=== PATIENT | male | born 1935 | race Caucasian/White ===

== ENCOUNTER 2017-09-11 17:42 | Emergency (ER) | payer MEDICARE, OTHER ==
[2017-09-11] MEDS ORDERED: Meclizine HCl 25 MG TAB ONE (18:18)
[2017-09-11] MEDS ORDERED: Ondansetron ODT 4 MG TAB ONE (18:18)
--- NOTE | 2017-09-11 18:25 | CT ---
CT BRAIN: 09/11/2017 PROVIDED CLINICAL HISTORY: Dizziness. COMPARISON: 11/17/2010 FINDINGS: The ventricular system is unchanged in size and morphology. There is no evidence for intracranial he morrhage or mass effect. Conspicuous vascular calcifications are seen. Dolichoectasia of the basila r artery is noted. The extracranial soft tissues and osseous structures demonstrate an unremarkable CT appearance. IMPRESSION: No evidence for intracranial hemorrhage or mass effect. POS: [facility]
[2017-09-11 18:47] LABS: #Basophils 0.1 thou/uL (0.0-0.2); #Eosinphils 0.2 thou/uL (0.0-0.7); #Lymphocytes 1.6 thou/uL (1.20-3.40); #Monocytes 0.4 thou/uL (0.11-0.59); #Neutrophils 2.9 thou/uL (1.40-6.50); %Basophils 1.1 % (0.0-1.0); %Eosinophils 4.6 % (0.0-10.0); %Lymphocytes 30.6 % (21.0-51.0); %Monocytes 7.2 % (0.0-10.0); %Neutrophils 56.5 % (42.0-75.0); Large Platelets SLIGHT; MDiff Complete? YES; Mean Corpuscular HGB CONC 33.7 g/dL (32.0-36.0); Mean Corpuscular Hemoglobin 34.7 pg (27.0-31.0); Mean Platelet Volume 9.9 fL (7.4-10.4); PLT Morphology Comment Appears Adequate; Platelet Count 124 thou/uL (130-400); RBC Distribution Width 12.6 % (11.5-14.5); Red Blood Cell (RBC) Count 4.02 mill/uL (4.70-6.10); White Blood Cell (WBC) Count 5.1 thou/uL (4.8-10.8)
[2017-09-11 18:52] LABS: ALT (SGPT) 17 U/L (8-55); AST (SGOT) 18 U/L (5-34); Albumin 4.1 g/dL (3.4-4.8); Alkaline Phosphatase 98 U/L (40-150); Anion Gap 14 mmol/L (10-20); BUN (Urea Nitrogen) 27 mg/dL (8.4-25.7); Bilirubin, Total 0.5 mg/dL (0.2-1.2); Calc. Creatinine Clearance 0 mL/min (70-130); Calcium 9.5 mg/dL (7.8-10.44); Carbon Dioxide 29 mmol/L (23-31); Chloride 103 mmol/L (98-107); Estimated GFR-MDRD 36; Globulin 2.3 g/dL (2.4-3.5); Glucose 152 mg/dL (83-110); Potassium 3.6 mmol/L (3.5-5.1); Protein, Total 6.4 g/dL (5.8-8.1); Sodium 142 mmol/L (136-145)
[2017-09-11 18:53] LABS: CKMB 1.7 ng/mL (0-6.6); Troponin I Less than 0.010 ng/mL (< 0.028)
--- NOTE | 2017-09-11 19:21 | RAD ---
PORTABLE CHEST: 09/11/2017 PROVIDED CLINICAL HISTORY: Dizziness. COMPARISON: 11/28/2010 FINDINGS: Elevation of the left hemidiaphragm is again noted. The visualized portions of the cardiac and media stinal silhouette are unchanged in appearance. No definite focal consolidation or pneumothorax appar ent. IMPRESSION: Stable radiographic appearance of the chest. POS: [facility]
== END 2017-09-11 19:28 | disposition home or self-care (01) ==
LOC: SCSER 17:42
DX: R42 Dizziness and giddiness (principal); M10.9 Gout, unspecified; E78.5 Hyperlipidemia, unspecified; I10 Essential (primary) hypertension; Z79.82 Long term (current) use of aspirin; Z79.899 Other long term (current) drug therapy
CPT/HCPCS: 70450; 71045; 80053; 82553; 84484; 85025; 93005; Q0162

== ENCOUNTER 2017-09-27 16:10 | Emergency (ER) | payer MEDICARE, OTHER ==
[2017-09-27 17:03] LABS: ALT (SGPT) 16 U/L (8-55); AST (SGOT) 19 U/L (5-34); Albumin 4.4 g/dL (3.4-4.8); Alkaline Phosphatase 101 U/L (40-150); Anion Gap 17 mmol/L (10-20); BUN (Urea Nitrogen) 32 mg/dL (8.4-25.7); Bilirubin, Total 0.6 mg/dL (0.2-1.2); Calc. Creatinine Clearance 0 mL/min (70-130); Calcium 10.1 mg/dL (7.8-10.44); Carbon Dioxide 26 mmol/L (23-31); Chloride 105 mmol/L (98-107); Estimated GFR-MDRD 49; Globulin 2.6 g/dL (2.4-3.5); Glucose 100 mg/dL (83-110); Lipase 31 U/L (8-78); Potassium 3.9 mmol/L (3.5-5.1); Sodium 144 mmol/L (136-145)
[2017-09-27 17:04] LABS: #Basophils 0.1 thou/uL (0.0-0.2); #Eosinphils 0.1 thou/uL (0.0-0.7); #Lymphocytes 1.2 thou/uL (1.20-3.40); #Monocytes 0.4 thou/uL (0.11-0.59); #Neutrophils 5.5 thou/uL (1.40-6.50); %Basophils 0.9 % (0.0-1.0); %Eosinophils 1.4 % (0.0-10.0); %Monocytes 5.5 % (0.0-10.0); %Neutrophils 76.2 % (42.0-75.0); Hemoglobin 14.7 g/dL (14.0-18.0); MDiff Complete? YES; Macrocytosis SLIGHT = 6-15 cells (100X) (0-5/hpf); Mean Corpuscular Hemoglobin 35.6 pg (27.0-31.0); Mean Platelet Volume 9.2 fL (7.4-10.4); PLT Morphology Comment Appears Decreased; Platelet Count 135 thou/uL (130-400); RBC Distribution Width 12.5 % (11.5-14.5); Red Blood Cell (RBC) Count 4.12 mill/uL (4.70-6.10); White Blood Cell (WBC) Count 7.3 thou/uL (4.8-10.8)
[2017-09-27 17:05] LABS: Bilirubin Negative (Negative); Blood, Urine Negative (Negative); Clarity Clear (Clear); Glucose, Urine (Dipstick) Negative (Negative); Leukocyte Negative (Negative); Nitrite Negative (Negative); Protein, Urine (Dipstick) Negative (Neg-Trace); Specific Gravity, Urine 1.015 (1.005-1.030); Urobilinogen 0.2 mg/dL (0.2-1.0)
--- NOTE | 2017-09-27 17:19 | CT ---
CT ABDOMEN AND PELVIS WITHOUT CONTRAST 09/27/17 HISTORY: Abdominal pain, constipation. COMPARISON: None. FINDINGS: Elevation of the left hemidiaphragm with left basilar passive atelectasis. Dense [place] coronary yosvany ry calcifications. Numerous hypodensities of both kidneys. Evaluation of the mid abdomen is limited due to extensive mot ion artifact. Fusion hardware also limits evaluation of the abdomen and pelvis. There are no dilated air filled loops of large or small bowel. Prostate is enlarged. Indwelling Wooten catheter. Minimal diverticular disease. No evidence of acute diverticulitis. The appendix is visualized and is normal. Mild asymmetric right sided perinephric stranding. There ar e calcifications within both renal collecting system measuring up to 3 mm right superior pole and int erpolar left kidney. No hydroureteronephrosis is appreciated. The aorta is markedly tortuous without aneurysmal dilatation . 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 IMPRESSION: 1. Bilateral renal calculi with mild right sided perinephric stranding can be seen with recently passed stone. Motion artifact throughout the abdomen limits further evaluation. 2. 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 This also may be the source of patient's pain. 3. No evidence of bowel obstruction. 4. Normal appendix. 5. Possibly a chronically elevated left hemidiaphragm with passive atelectasis in the left lower lobe suggesting prior phrenic nerve injury. POS: [facility]
== END 2017-09-27 17:52 | disposition home or self-care (01) ==
LOC: SCSER 16:10
DX: K59.00 Constipation, unspecified (principal); R33.9 Retention of urine, unspecified; I25.10 Atherosclerotic heart disease of native coronary artery without angina pectoris; E78.5 Hyperlipidemia, unspecified; M10.9 Gout, unspecified; G62.9 Polyneuropathy, unspecified; Z79.899 Other long term (current) drug therapy
CPT/HCPCS: 36415; 51702; 74176; 80053; 81003; 83690; 85025

== ENCOUNTER 2017-09-30 19:25 | Emergency (ER) | payer MEDICARE, OTHER ==
[2017-09-30] MEDS ORDERED: Ketorolac Tromethamine 30 MG/ML VIAL ONE (21:12)
[2017-09-30] MEDS ORDERED: Phenazopyridine HCl 97.5 MG TABLET ONE (21:12)
--- NOTE | 2017-09-30 22:15 | ULT ---
BLADDER ULTRASOUND: 09/30/17 INDICATIONS: Bleeding from Wooten catheter. Wooten catheter placed today in urologist's office. Wooten catheter is seen with balloon in the bladder lumen. There is echogenicity surrounding this cath eter which may represent blood clot given history of bleeding. Urinary bladder is mildly distended an d is otherwise unremarkable. IMPRESSION: Echogenicity surrounding the Wooten catheter balloon may represent blood clot within bladder. POS: [facility]
== END 2017-09-30 23:12 | disposition short-term general hospital (02) ==
LOC: SCSER 19:25
DX: R33.9 Retention of urine, unspecified (principal); R31.9 Hematuria, unspecified; M10.9 Gout, unspecified; E78.5 Hyperlipidemia, unspecified; I10 Essential (primary) hypertension
CPT/HCPCS: 51700; 76856; 96372; J1885

== ENCOUNTER 2018-08-15 14:58 | Inpatient (IN) | payer MEDICARE, OTHER ==
[~2018-08-15 14:58] MED LIST: ISOVUE-370 76%-LOCM 1 ML ONE
[2018-08-15 15:44] LABS: ALT (SGPT) 11 U/L (8-55); AST (SGOT) 17 U/L (5-34); Albumin 4.1 g/dL (3.4-4.8); Alkaline Phosphatase 122 U/L (40-150); Anion Gap 16 mmol/L (10-20); BUN (Urea Nitrogen) 23 mg/dL (8.4-25.7); Bilirubin, Total 0.6 mg/dL (0.2-1.2); Calc. Creatinine Clearance 0 mL/min (70-130); Carbon Dioxide 28 mmol/L (23-31); Chloride 99 mmol/L (98-107); Estimated GFR-MDRD 48; Globulin 2.4 g/dL (2.4-3.5); Glucose 104 mg/dL (83-110); Potassium 3.8 mmol/L (3.5-5.1); Protein, Total 6.5 g/dL (5.8-8.1); Sodium 139 mmol/L (136-145)
[2018-08-15 15:47] LABS: #Eosinphils 0.1 thou/uL (0.0-0.7); #Lymphocytes 0.5 thou/uL (1.20-3.40); #Monocytes 0.3 thou/uL (0.11-0.59); #Neutrophils 3.7 thou/uL (1.40-6.50); %Eosinophils 1.4 % (0.0-10.0); %Lymphocytes 11.1 % (21.0-51.0); %Monocytes 5.9 % (0.0-10.0); %Neutrophils 81.5 % (42.0-75.0); Hemoglobin 12.7 g/dL (14.0-18.0); MDiff Complete? YES; Macrocytosis SLIGHT = 6-15 cells (100X) (0-5/hpf); Mean Corpuscular HGB CONC 32.4 g/dL (32.0-36.0); Mean Corpuscular Hemoglobin 35.5 pg (27.0-31.0); Mean Platelet Volume 8.2 fL (7.4-10.4); Platelet Count 112 thou/uL (130-400); Platelet Morphology Comment Appears Decreased; RBC Distribution Width 12.2 % (11.5-14.5); Red Blood Cell (RBC) Count 3.57 mill/uL (4.70-6.10); White Blood Cell (WBC) Count 4.6 thou/uL (4.8-10.8)
[2018-08-15 15:50] LABS: Bilirubin Negative (Negative); Blood, Urine Small (Negative); Clarity CLEAR (Clear); Glucose, Urine (Dipstick) Negative (Negative); Leukocyte Negative (Negative); Nitrite Negative (Negative); Protein, Urine (Dipstick) 30 mg/dL (Neg-Trace); Specific Gravity, Urine 1.011 (1.002-1.036); Urobilinogen 0.2 mg/dL (0.2-1.0); pH, Urine 7.5 (5.0-9.0)
[2018-08-15 15:52] LABS: Bacteria/HPF None Seen HPF (None Seen); Hyaline Casts/LPF 0-3 HYALINE CAST LPF (0-3 Hyaline); Pathc Cast-AUWi Flag 0.13 (0-2.49); RBC/HPF 0-3 HPF (0-3); Squamous Epithelial None Seen HPF (0-3); WBC/HPF 0-3 HPF (0-3)
--- NOTE | 2018-08-15 15:52 | RAD ---
PORTABLE CHEST: Date: 08/15/18 HISTORY: Shortness of breath. Chest pain. COMPARISON: 09/11/17. FINDINGS: Elevated left hemidiaphragm is again noted. Left basilar atelectasis associated with this elevation i s again noted. Cardiomegaly. Postop sternotomy change. Lungs otherwise clear and unchanged. IMPRESSION: No evidence of acute process. POS: [facility]
[2018-08-15 19:11] LABS: Lactic Acid 0.9 mmol/L (0.5-2.2)
--- NOTE | 2018-08-15 20:03 | CT ---
CT PULMONARY ANGIOGRAM WITH IV CONTRAST AND 3D POSTPROCESSIN08/15/18 HISTORY: Dyspnea. FINDINGS: There is satisfactory opacification only of the main pulmonary arteries without filling defects to treviño ggest embolism in the main pulmonary arteries. The branches of the pulmonary arteries are not adequat drew opacified for satisfactory evaluation. There are vascular calcifications without evidence of aneurysmal dilatation of the thoracic aorta. Th ere is patchy consolidation in the left mid and lower lung zones and the right lung base and mild inf iltrates/atelectatic changes are seen in the right lung base. No pneumothoraces are identified. No pl eural or pericardial effusions are seen. There are degenerative changes in the spine. The lucency in the T10 vertebral body. IMPRESSION: 1. No CT evidence of pulmonary embolism in the main pulmonary arteries. Peripheral embolism janessa ot be excluded. 2. Consolidative changes in the lungs suspicious for pneumonia. Low density lesion in the thorac ic spine. This should be evaluated with bone scan. POS: [facility]
[2018-08-15] MEDS ORDERED: Cefepime 2 GM VIAL ONE (20:04)
[2018-08-15] MEDS ORDERED: Ketorolac Tromethamine 30 MG/ML VIAL ONE (20:04)
[2018-08-15] MEDS ORDERED: Ondansetron ODT 4 MG TAB SL PRN (22:31)
[2018-08-15] MEDS ORDERED: Ondansetron PF 4 MG/2 ML Vial IVP PRN (22:31)
[2018-08-15] MEDS ORDERED: Acetaminophen 325 MG TAB PO PRN (22:31)
[2018-08-15 23:36] VITALS: BMI 36.1
[2018-08-16] MEDS: Sodium Chloride 0.9% 1,000 ML IV SCH ×2 (03:29→17:36)
--- NOTE | 2018-08-16 04:08 | HP ---
PRIMARY CARE DOCTOR: Dr. Maxine Tsang. CODE STATUS: Full code. TIME OF EVALUATION: 09:45 p.m. CHIEF COMPLAINT: Shortness of breath. HISTORY OF PRESENT ILLNESS: This is an 83-year-old male patient with past medical history of neuropathy, coronary artery disease, gout, hyperlipidemia, hypertension, came to the hospital after having shortness of breath and generalized weakness with no clear triggers, no alleviating factors. He slid off his chair, was unable to get back up due to weakness. He also reported having some associated cough. Symptoms started suddenly and has been gradually worsening. REVIEW OF SYSTEMS: CONSTITUTIONAL: No fever, chills. The patient reported severe generalized weakness. RESPIRATORY: The patient has cough, scant sputum production, shortness of breath. CARDIOVASCULAR: No chest pain or palpitation. GASTROINTESTINAL: No nausea, no vomiting, diarrhea, or abdominal pain. DATA CENTER OPERATOR: No dizziness, headache, or feeling lightheaded. GENITOURINARY: No burning on urination. EXTREMITIES: Bilateral leg edema. All other systems were reviewed and negative except for the findings mentioned above. PAST MEDICAL HISTORY: As mentioned HPI. PAST SURGICAL HISTORY: The patient has coronary artery bypass surgery x4 vessels, date of surgery 1991, right rotator cuff x2, salivary gland surgery. PSYCH HISTORY: No previous psych history. FAMILY HISTORY: Reviewed and noncontributory for current presentation. SOCIAL HISTORY: Denies alcohol use. No smoking history. ALLERGIES: NO KNOWN DRUG ALLERGIES. REPORTED MEDICATIONS: Prednisone, Lasix, allopurinol, metoprolol, potassium, Colcrys, spironolactone, amlodipine, Plavix, tamsulosin, atorvastatin. PHYSICAL EXAMINATION: VITAL SIGNS: On presentation, blood pressure 136/76 with heart rate 96, respiratory rate 20, temperature 101.5. Pain was 0/10. Oxygen saturation was 89% on room air. GENERAL APPEARANCE: The patient is alert, oriented, no acute distress. HEENT: Eyes, normal conjunctiva. ENT, moist oral mucosa. Anicteric. No JVD. RESPIRATORY: Bilateral air entry. The patient has scattered rales. No wheezes. Symmetric expansion. CARDIOVASCULAR: Normal rate. Regular rhythm. No murmurs. No gallop. Bilateral leg edema. ABDOMEN: Soft. Normal bowel sounds. MUSCULOSKELETAL: Baseline range of motion and strength. No tenderness. SKIN: Warm, intact. No pallor. No rash. Peripheral pulses are present. Capillary refill seems to be intact. NEUROLOGIC: No evidence of any new focal weakness. Baseline speech. Cranial nerves seem to be intact. PSYCHIATRIC: Patient is in good mood. No anxiety. Optimal judgment. EKG was reviewed. The patient has normal sinus rhythm with sinus arrhythmia, RBBB, left anterior fascicular block, ventricular rate 98, FL 156, QRS 148, QT corrected 500. LABORATORY DATA: Reviewed. The patient has white count 4.6, hemoglobin 12.7, MCV 110, platelet count 112, neutrophils 81.5. Chemistry; sodium 139, potassium 3.8 , chloride 99, carbon dioxide 28, anion gap 16, BUN 23, creatinine 1.42, and previous creatinine was 1.15, GFR 48, glucose 104, lactic acid 3.0, the second one 0.9, calcium 10, total bilirubin 0.6. LFTs were negative. Albumin 4.1. Urine was done and was negative. ASSESSMENT AND PLAN: The patient will be placed in the hospital with following medical problems. 1. Bilateral pneumonia as seen on the chest CT that reported consolidative changes in the lungs suspicious for pneumonia. The patient has been started on antibiotics, follow cultures, adjust treatment as per sensitivity. 2. Possible low-density lesion in the thoracic spine seen on the CAT scan. This should be evaluated with bone scan as per ID recommendation. This could be planned after pneumonia is resolved. 3. Macrocytic anemia, this is mild. Hemoglobin is 12, so same that the patient had a year ago. No need for any acute intervention. This can be followed as outpatient. 4. Lactic acidosis secondary to underlying infection. The patient has lactic acid of 3 that is corrected to 0.9. 5. Acute kidney injury. The patient has a creatinine of 1.42; in previous records, the creatinine was 1.15, so there is an increase of more than 0.3 mg/dL. This could be secondary to sepsis. We will hydrate, we will monitor, might need Nephrology evaluation if not improving. 6. History of coronary artery disease, this is chronic, seems to be stable, reconcile home medications. 7. Hyperlipidemia. Low-cholesterol diet is advised, reconcile home medications. 8. Controlled hypertension, reconcile home medications. This is chronic, stable. Job ID: [id number] [facility]
[2018-08-16 06:50] LABS: #Eosinphils 0.1 thou/uL (0.0-0.7); #Monocytes 0.4 thou/uL (0.11-0.59); %Eosinophils 1.3 % (0.0-10.0); %Lymphocytes 15.7 % (21.0-51.0); %Monocytes 6.8 % (0.0-10.0); %Neutrophils 76.2 % (42.0-75.0); Hemoglobin 10.8 g/dL (14.0-18.0); MDiff Complete? YES; Macrocytosis SLIGHT = 6-15 cells (100X) (0-5/hpf); Mean Corpuscular HGB CONC 32.2 g/dL (32.0-36.0); Mean Corpuscular Hemoglobin 36.3 pg (27.0-31.0); Mean Platelet Volume 8.4 fL (7.4-10.4); Platelet Count 95 thou/uL (130-400); Platelet Morphology Comment Appears Decreased; RBC Distribution Width 12.5 % (11.5-14.5); Red Blood Cell (RBC) Count 2.97 mill/uL (4.70-6.10); White Blood Cell (WBC) Count 6.5 thou/uL (4.8-10.8)
[2018-08-16 06:57] LABS: Anion Gap 10 mmol/L (10-20); BUN (Urea Nitrogen) 27 mg/dL (8.4-25.7); Calc. Creatinine Clearance 62 mL/min (70-130); Calcium 9.6 mg/dL (7.8-10.44); Carbon Dioxide 30 mmol/L (23-31); Chloride 102 mmol/L (98-107); Estimated GFR-MDRD 45; Glucose 89 mg/dL (83-110); Potassium 4.2 mmol/L (3.5-5.1); Sodium 138 mmol/L (136-145)
[2018-08-16] MEDS: Cefepime 1 GM in Sodium Chloride 0.9% 100 ML IVPB SCH ×2 (08:13→21:31)
[2018-08-16] MEDS: Potassium Chloride 20 MEQ TAB PO SCH (08:15)
[2018-08-16] MEDS: Primidone 50 MG TAB PO SCH ×2 (08:16→20:28)
[2018-08-16] MEDS: Cyanocobalamin (Vitamin B-12) 1,000 MCG TAB PO SCH (08:16)
[2018-08-16] MEDS: Furosemide 40 MG TAB PO SCH (08:16)
[2018-08-16] MEDS: Loratadine 10 MG TAB PO SCH (08:16)
[2018-08-16] MEDS: Allopurinol 100 MG TAB PO SCH (08:16)
[2018-08-16] MEDS: Colchicine 0.6 MG TAB PO SCH (08:16)
[2018-08-16] MEDS: Docusate 100 MG CAP PO SCH (08:16)
[2018-08-16] MEDS: Metoprolol Tartrate 25 MG TAB PO SCH (11:49)
--- NOTE | 2018-08-16 14:29 | PDOC.PN ---
- Subjective Encounter Start Date: 08/16/18 Encounter Start Time: 09:20 Pt seen for followup re: pneumonia. Reports generalized weakness, cough, greenish sputum - Objective Resuscitation Status - Order Detail: 08/16/18 02:56 Resuscitation Status Routine Resuscitation Status: FULL: Full Resuscitation Vital Signs & Weight: Vital Signs (12 hours) Temp Pulse Resp BP Pulse Ox 08/16/18 11:47 99.1 F 77 18 100/41 L 94 L 08/16/18 08:11 95 08/16/18 08:00 100.8 F H 78 20 109/58 L 93 L 08/16/18 05:35 98.6 F 77 16 140/67 95 Weight Weight 251 lb 12.286 oz I&O: 08/15/18 08/16/18 08/17/18 06:59 06:59 06:59 Intake Total 625 Output Total 750 Balance -125 Result Diagrams: 08/16/18 05:47 08/16/18 05:47 Phys Exam - Physical Examination Obesity HEENT: moist MMs, sclera anicteric, oral pharynx no lesions, 2+ tonsils Neck: no nodes, no JVD, supple, full ROM Respiratory: clear to auscultation bilateral Cardiovascular: RRR, no rub S1, s2 Gastrointestinal: soft, non-tender, no distention, positive bowel sounds Neurological: moves all 4 limbs Psychiatric: normal affect, A&O x 3 Dx/Plan (1) Pneumonia Code(s): J18.9 - PNEUMONIA, UNSPECIFIED ORGANISM Status: Acute Comment: continue cefepime and azithromycin (2) Generalized weakness Code(s): R53.1 - WEAKNESS Status: Acute Comment: PT eval, likely secondary to pneumonia (3) Bone lesion Code(s): M89.9 - DISORDER OF BONE, UNSPECIFIED Status: Acute Comment: seen on CT. For bone scan when improved (4) CAD (coronary artery disease) Code(s): I25.10 - ATHSCL HEART DISEASE OF [place] CORONARY ARTERY W/O ANG PCTRS Status: Chronic Comment: stable (5) Dyslipidemia Code(s): E78.5 - HYPERLIPIDEMIA, UNSPECIFIED Status: Chronic Comment: continue lipitor (6) HTN (hypertension) Code(s): I10 - ESSENTIAL (PRIMARY) HYPERTENSION Status: Chronic Comment: controlled (7) Gout Code(s): M10.9 - GOUT, UNSPECIFIED Status: Chronic Comment: stable, continue colchicine - Plan * . Review of Systems - Review of Systems Constitutional: fever, weakness. negative: chills, sweats, malaise Respiratory: Cough, SOB with Excertion, Sputum. negative: Dry, Shortness of Breath, Hemoptysis, Pleuritic Pain, Wheezing Cardiovascular: negative: chest pain, palpitations, orthopnea, paroxysmal nocturnal dyspnea, edema, light headedness Gastrointestinal: negative: Nausea, Vomiting, Abdominal Pain, Diarrhea, Constipation, Melena, Hematochezia Genitourinary: negative: Dysuria, Frequency, Incontinence, Hematuria, Retention - Medications/Allergies Allergies/Adverse Reactions: Allergies Allergy/AdvReac Type Severity Reaction Status Date / Time No Known Allergies Allergy Verified 06/26/15 11:13 Medications: Current Medications Acetaminophen (Tylenol) 650 mg PO Q6H PRN PRN Reason: Headache/Fever or Pain Acidophilus (Floranex) 1 tab PO QPM [facility] Allopurinol (Zyloprim) 100 mg PO DAILY [facility] Last Admin: 08/16/18 08:16 Dose: 100 mg Aspirin (Aspirin Chewable) 81 mg PO QPM [facility] Atorvastatin Calcium (Lipitor) 20 mg PO QPM [facility] Cholecalciferol (Vitamin D3) 1,000 units PO QPM [facility] Clopidogrel Bisulfate (Plavix) 37.5 mg PO QPM [facility] Colchicine (Colchicine) 0.6 mg PO QAM [facility] Last Admin: 08/16/18 08:16 Dose: 0.6 mg Cyanocobalamin (Vitamin B-12) 1,000 mcg PO DAILY [facility] Last Admin: 08/16/18 08:16 Dose: 1,000 mcg Docusate Sodium (Colace) 100 mg PO DAILY [facility] Last Admin: 08/16/18 08:16 Dose: 100 mg Furosemide (Lasix) 40 mg PO QAM [facility] Last Admin: 08/16/18 08:16 Dose: 40 mg Cefepime HCl 1 gm/ Sodium (Chloride) 100 mls @ 200 mls/hr IVPB Q12HR [facility] Last Admin: 08/16/18 08:13 Dose: 100 mls Azithromycin 500 mg/ Sodium (Chloride) 250 mls @ 250 mls/hr IVPB Q24HR [facility] Sodium Chloride (Normal Saline 0.9%) 1,000 mls @ 75 mls/hr IV .[id number] [facility] Last Admin: 08/16/18 03:29 Dose: 1,000 mls Loratadine (Claritin) 10 mg PO DAILY [facility] Last Admin: 08/16/18 08:16 Dose: 10 mg Magnesium Oxide (Magnesium Oxide) 250 mg PO QPM [facility] Metoprolol Tartrate (Lopressor) 25 mg PO DAILY [facility] Last Admin: 08/16/18 11:49 Dose: Not Given Potassium Chloride (K-Dur) 20 meq PO QAM-WM [facility] Last Admin: 08/16/18 08:15 Dose: 20 meq Primidone (Mysoline) 50 mg PO BID [facility] Last Admin: 08/16/18 08:16 Dose: 50 mg
[2018-08-16] MEDS: Acetaminophen 325 MG TAB PO PRN ×2 (15:22→20:28)
[2018-08-16] MEDS: Azithromycin 500 MG in Sodium Chloride 0.9% 250 ML 250 ML IVPB SCH (20:22)
[2018-08-16] MEDS: Lactinex Tablet PO SCH (20:26)
[2018-08-16] MEDS: Magnesium Oxide 250 MG TAB PO SCH (20:27)
[2018-08-16] MEDS: Clopidogrel Bisulfate 75 MG TAB PO SCH (20:27)
[2018-08-16] MEDS: Aspirin Chewable 81 MG TAB PO SCH (20:27)
[2018-08-16] MEDS: Atorvastatin Calcium 20 MG TAB PO SCH (20:28)
[2018-08-17] MEDS: Sodium Chloride 0.9% 1,000 ML IV SCH ×2 (06:21→20:08)
[2018-08-17] MEDS: Colchicine 0.6 MG TAB PO SCH (08:45)
[2018-08-17] MEDS: Metoprolol Tartrate 25 MG TAB PO SCH (08:45)
[2018-08-17] MEDS: Allopurinol 100 MG TAB PO SCH (08:45)
[2018-08-17] MEDS: Furosemide 40 MG TAB PO SCH (08:45)
[2018-08-17] MEDS: Primidone 50 MG TAB PO SCH ×2 (08:45→20:17)
[2018-08-17] MEDS: Loratadine 10 MG TAB PO SCH (08:46)
[2018-08-17] MEDS: Docusate 100 MG CAP PO SCH (08:46)
[2018-08-17] MEDS: Cyanocobalamin (Vitamin B-12) 1,000 MCG TAB PO SCH (08:46)
[2018-08-17] MEDS: Cefepime 1 GM in Sodium Chloride 0.9% 100 ML IVPB SCH ×2 (08:46→20:15)
[2018-08-17] MEDS: Potassium Chloride 20 MEQ TAB PO SCH (08:46)
[2018-08-17 09:25] LABS: #Eosinphils 0.1 thou/uL (0.0-0.7); #Lymphocytes 0.7 thou/uL (1.20-3.40); #Monocytes 0.4 thou/uL (0.11-0.59); #Neutrophils 5.1 thou/uL (1.40-6.50); %Basophils 0.6 % (0.0-1.0); %Eosinophils 2.1 % (0.0-10.0); %Monocytes 5.7 % (0.0-10.0); %Neutrophils 80.6 % (42.0-75.0)
[2018-08-17 09:26] LABS: Mean Corpuscular Hemoglobin 36.6 pg (27.0-31.0); Mean Platelet Volume 7.9 fL (7.4-10.4); Platelet Count 104 thou/uL (130-400); RBC Distribution Width 12.2 % (11.5-14.5); White Blood Cell (WBC) Count 6.4 thou/uL (4.8-10.8)
[2018-08-17 09:36] LABS: Anion Gap 10 mmol/L (10-20); BUN (Urea Nitrogen) 23 mg/dL (8.4-25.7); Calc. Creatinine Clearance 72 mL/min (70-130); Calcium 10.2 mg/dL (7.8-10.44); Carbon Dioxide 28 mmol/L (23-31); Chloride 104 mmol/L (98-107); Estimated GFR-MDRD 54; Glucose 122 mg/dL (83-110); Potassium 3.6 mmol/L (3.5-5.1); Sodium 138 mmol/L (136-145)
[2018-08-17 09:47] LABS: MDiff Complete? YES; Ovalocytes SLIGHT = 2-5 cells (100X) (0-1/hpf); Platelet Morphology Comment Appears Decreased; Polychromasia SLIGHT = 2-3 cells (100X) (0-2/hpf)
[2018-08-17] MEDS: Milk Of Magnesia 30 ML UDCUP PO PRN (15:16)
--- NOTE | 2018-08-17 18:07 | PDOC.PN ---
- Subjective Encounter Start Date: 08/17/18 Encounter Start Time: 09:20 Pt seen for followup re:pneumonia. Feels better. - Objective Resuscitation Status - Order Detail: 08/16/18 02:56 Resuscitation Status Routine Resuscitation Status: FULL: Full Resuscitation MAR Reviewed: Yes Vital Signs & Weight: Vital Signs (12 hours) Temp Pulse Resp BP Pulse Ox 08/17/18 16:50 99.1 F 78 18 127/75 93 L 08/17/18 11:55 98.5 F 73 18 136/76 95 08/17/18 08:45 96 08/17/18 08:30 99.1 F 95 16 147/78 H 96 Weight Weight 251 lb 12.286 oz I&O: 08/16/18 08/17/18 08/18/18 06:59 06:59 06:59 Intake Total 625 2950 1645 Output Total 750 1450 950 Balance -125 1500 695 Result Diagrams: 08/17/18 09:09 08/17/18 09:09 Additional Labs: Labs reviewed by me Phys Exam - Physical Examination Constitutional: NAD HEENT: moist MMs Neck: supple Respiratory: clear to auscultation bilateral Cardiovascular: RRR Gastrointestinal: positive bowel sounds Neurological: moves all 4 limbs Psychiatric: normal affect Dx/Plan (1) Pneumonia Code(s): J18.9 - PNEUMONIA, UNSPECIFIED ORGANISM Status: Acute Comment: on cefepime and azithromycin (2) Generalized weakness Code(s): R53.1 - WEAKNESS Status: Acute Comment: awaiting PT eval (3) Bone lesion Code(s): M89.9 - DISORDER OF BONE, UNSPECIFIED Status: Acute Comment: Bone scan tomorrow (4) CAD (coronary artery disease) Code(s): I25.10 - ATHSCL HEART DISEASE OF [place] CORONARY ARTERY W/O ANG PCTRS Status: Chronic Comment: stable (5) Dyslipidemia Code(s): E78.5 - HYPERLIPIDEMIA, UNSPECIFIED Status: Chronic Comment: on lipitor (6) HTN (hypertension) Code(s): I10 - ESSENTIAL (PRIMARY) HYPERTENSION Status: Chronic Comment: controlled (7) Gout Code(s): M10.9 - GOUT, UNSPECIFIED Status: Chronic Comment: on colchicine - Plan * . Review of Systems - Review of Systems Constitutional: weakness Respiratory: Cough, Sputum. negative: Dry, Shortness of Breath, Hemoptysis, SOB with Excertion, Pleuritic Pain, Wheezing Cardiovascular: negative: chest pain, palpitations, orthopnea, paroxysmal nocturnal dyspnea, edema, light headedness - Medications/Allergies Allergies/Adverse Reactions: Allergies Allergy/AdvReac Type Severity Reaction Status Date / Time No Known Allergies Allergy Verified 06/26/15 11:13 Medications: Current Medications Acetaminophen (Tylenol) 650 mg PO Q6H PRN PRN Reason: Headache/Fever or Pain Last Admin: 08/16/18 20:28 Dose: 650 mg Acidophilus (Floranex) 1 tab PO QPM [facility] Last Admin: 08/16/18 20:26 Dose: 1 tab Allopurinol (Zyloprim) 100 mg PO DAILY [facility] Last Admin: 08/17/18 08:45 Dose: 100 mg Aspirin (Aspirin Chewable) 81 mg PO QPM [facility] Last Admin: 08/16/18 20:27 Dose: 81 mg Atorvastatin Calcium (Lipitor) 20 mg PO QPM [facility] Last Admin: 08/16/18 20:28 Dose: 20 mg Cholecalciferol (Vitamin D3) 1,000 units PO QPM [facility] Last Admin: 08/16/18 20:26 Dose: 1,000 units Clopidogrel Bisulfate (Plavix) 37.5 mg PO QPM [facility] Last Admin: 08/16/18 20:27 Dose: 37.5 mg Colchicine (Colchicine) 0.6 mg PO QAM [facility] Last Admin: 08/17/18 08:45 Dose: 0.6 mg Cyanocobalamin (Vitamin B-12) 1,000 mcg PO DAILY [facility] Last Admin: 08/17/18 08:46 Dose: 1,000 mcg Docusate Sodium (Colace) 100 mg PO DAILY [facility] Last Admin: 08/17/18 08:46 Dose: 100 mg Furosemide (Lasix) 40 mg PO QAM [facility] Last Admin: 08/17/18 08:45 Dose: 40 mg Cefepime HCl 1 gm/ Sodium (Chloride) 100 mls @ 200 mls/hr IVPB Q12HR [facility] Last Admin: 08/17/18 08:46 Dose: 100 mls Azithromycin 500 mg/ Sodium (Chloride) 250 mls @ 250 mls/hr IVPB Q24HR [facility] Last Admin: 08/16/18 20:22 Dose: 250 mls Sodium Chloride (Normal Saline 0.9%) 1,000 mls @ 75 mls/hr IV .[id number] [facility] Last Admin: 08/17/18 06:21 Dose: 1,000 mls Loratadine (Claritin) 10 mg PO DAILY [facility] Last Admin: 08/17/18 08:46 Dose: 10 mg Magnesium Hydroxide (Milk Of Magnesium) 30 ml PO BID PRN PRN Reason: Constipation Last Admin: 08/17/18 15:16 Dose: 30 ml Magnesium Oxide (Magnesium Oxide) 250 mg PO QPM [facility] Last Admin: 08/16/18 20:27 Dose: 250 mg Metoprolol Tartrate (Lopressor) 25 mg PO DAILY [facility] Last Admin: 08/17/18 08:45 Dose: 25 mg Potassium Chloride (K-Dur) 20 meq PO QAM-WM [facility] Last Admin: 08/17/18 08:46 Dose: 20 meq Primidone (Mysoline) 50 mg PO BID [facility] Last Admin: 08/17/18 08:45 Dose: 50 mg
[2018-08-17] MEDS: Atorvastatin Calcium 20 MG TAB PO SCH (20:16)
[2018-08-17] MEDS: Clopidogrel Bisulfate 75 MG TAB PO SCH (20:16)
[2018-08-17] MEDS: Lactinex Tablet PO SCH (20:17)
[2018-08-17] MEDS: Aspirin Chewable 81 MG TAB PO SCH (20:18)
[2018-08-17] MEDS: Acetaminophen 325 MG TAB PO PRN (20:18)
[2018-08-17] MEDS: Magnesium Oxide 250 MG TAB PO SCH (20:20)
[2018-08-17] MEDS: Azithromycin 500 MG in Sodium Chloride 0.9% 250 ML 250 ML IVPB SCH (21:06)
[2018-08-18 06:46] LABS: Anion Gap 9 mmol/L (10-20); BUN (Urea Nitrogen) 21 mg/dL (8.4-25.7); Calc. Creatinine Clearance 66 mL/min (70-130); Calcium 10.9 mg/dL (7.8-10.44); Carbon Dioxide 31 mmol/L (23-31); Chloride 105 mmol/L (98-107); Estimated GFR-MDRD 49; Glucose 84 mg/dL (83-110); Potassium 4.1 mmol/L (3.5-5.1); Sodium 141 mmol/L (136-145)
[2018-08-18 06:48] LABS: Mean Corpuscular HGB CONC 32.4 g/dL (32.0-36.0); Mean Corpuscular Hemoglobin 36.9 pg (27.0-31.0); Mean Platelet Volume 8.5 fL (7.4-10.4); Platelet Count 109 thou/uL (130-400); RBC Distribution Width 12.3 % (11.5-14.5); Red Blood Cell (RBC) Count 2.99 mill/uL (4.70-6.10); White Blood Cell (WBC) Count 6.4 thou/uL (4.8-10.8)
[2018-08-18 06:49] LABS: #Eosinphils 0.2 thou/uL (0.0-0.7); #Monocytes 0.5 thou/uL (0.11-0.59); #Neutrophils 4.7 thou/uL (1.40-6.50); %Basophils 0.5 % (0.0-1.0); %Eosinophils 3.2 % (0.0-10.0); %Monocytes 7.8 % (0.0-10.0); %Neutrophils 73.5 % (42.0-75.0)
[2018-08-18] MEDS: Cyanocobalamin (Vitamin B-12) 1,000 MCG TAB PO SCH (07:49)
[2018-08-18] MEDS: Milk Of Magnesia 30 ML UDCUP PO PRN (07:49)
[2018-08-18] MEDS: Potassium Chloride 20 MEQ TAB PO SCH (07:50)
[2018-08-18] MEDS: Metoprolol Tartrate 25 MG TAB PO SCH (07:50)
[2018-08-18] MEDS: Cefepime 1 GM in Sodium Chloride 0.9% 100 ML IVPB SCH ×2 (07:50→20:24)
[2018-08-18] MEDS: Allopurinol 100 MG TAB PO SCH (07:50)
[2018-08-18] MEDS: Loratadine 10 MG TAB PO SCH (07:50)
[2018-08-18] MEDS: Furosemide 40 MG TAB PO SCH (07:50)
[2018-08-18] MEDS: Docusate 100 MG CAP PO SCH (07:50)
[2018-08-18] MEDS: Colchicine 0.6 MG TAB PO SCH (07:50)
[2018-08-18] MEDS: Sodium Chloride 0.9% 1,000 ML IV SCH ×3 (08:01→21:29)
[2018-08-18 08:22] LABS: MDiff Complete? YES; Macrocytosis SLIGHT = 6-15 cells (100X) (0-5/hpf); Ovalocytes SLIGHT = 2-5 cells (100X) (0-1/hpf); Platelet Morphology Comment Appears Decreased; Polychromasia SLIGHT = 2-3 cells (100X) (0-2/hpf)
[2018-08-18] MEDS: Primidone 50 MG TAB PO SCH ×2 (08:42→20:19)
[2018-08-18] MEDS: guaiFENesin ER 600 MG TAB PO SCH ×2 (09:48→20:19)
--- NOTE | 2018-08-18 11:20 | PQF ---
CHINTANTYRONE BRIGITTELORRAINE [id number] CLINICAL DOCUMENTATION IMPROVEMENT CLARIFICATION FORM: ICD-10 Updated PLEASE DO AN ADDENDUM TO THE PROGRESS NOTE WITH ANY DOCUMENTATION UPDATES OR ADDITIONS AND CARRY THROUGH TO DC SUMMARY. THANK YOU. DATE: 08/18/2018 ATTN: DR. Ton BRIGGS Please exercise your independent, professional judgment in responding to the clarification form. Clinical indicators are provided on the bottom of this form for your review. Please check appropriate box(es): [ ] Sepsis due to: (Pna, UTI, gangrenous gall bladder, etc.) Due to: [ ] Device (please specify) [ ] Severe sepsis with acute organ dysfunction of: (Examples: respiratory failure, encephalopathy, acute kidney failure, other) [ ] Septic Shock [ ] Localized infection without sepsis [ ] Other diagnosis [ ] Unable to determine In addition, please specify: Present on Admission (POA): [ ] Yes [ ] No [ ] Unable to determine For continuity of documentation, please document condition throughout progress notes and discharge summary. Thank You. CLINICAL INDICATORS - SIGNS / SYMPTOMS / LABS SEE QUERY FOR SEPSIS 08/15 ED : SEPSIS ALERT , RESP 12-25, TEMP - 99.8-101.5, O2 SATS 89% RA > 95-96 % 3L/ NC 08/15 ED : PHYSICIAN DX MULTIFOCAL PNA, AMS,SEPSIS 08/15 LACTIC ACID 3.0 WBC 4.6 08/16 H & P ([facility]) ASSESSMENT AND PLAN: 5) ACUTE KIDNEY INJURY. THE PATIENT HAS A CREATININE OF 1.42, IN PREVIOUS RECORDS THE CREATININE WAS 1.15, SO THERE IN AN INCREASE OF MORE THAN 0.3MG/DL. THIS COULD BE SECONDARY TO SEPSIS. NO FURTHER MENTION OF SEPSIS TO DATE RISK: BILATERAL PNEUMONIA ( H & P) ADVANCED AGE (83) LACTIC ACIDOSIS (H & P) TREATMENTS ZITHROMAX IV ( 08/16-PRESENT) MAXIPIME IV( 08/16-PRESENT) THANK YOU! MARISA (This form is maintained as a part of the permanent medical record) 2014 [employer]. All Rights Reserved [email or web address] [phone] MTDD
--- NOTE | 2018-08-18 11:38 | PQF ---
CHINTANTYRONE DAVID [id number] CLINICAL DOCUMENTATION IMPROVEMENT CLARIFICATION FORM: ICD-10 Updated PLEASE DO AN ADDENDUM TO THE PROGRESS NOTE WITH ANY DOCUMENTATION UPDATES OR ADDITIONS AND CARRY THROUGH TO DC SUMMARY. THANK YOU. DATE: 08/18/2018 ATTN: DR. Ton BRIGGS Please exercise your independent, professional judgment in responding to the clarification form. Clinical indicators are provided on the bottom of this form for your review. Please check appropriate box(s): [ ] Acute Respiratory Failure: [ ] with Hypoxia[ ] with Hypercapnia [ ] Acute Respiratory Failure due to: (etiology) [ ] Other diagnosis [ ] Unable to determine In addition, please specify: Present on Admission (POA): [ ] Yes [ ] No [ ] Unable to determine For continuity of documentation, please document condition throughout progress notes and discharge summary. Thank You. CLINICAL INDICATORS - SIGNS / SYMPTOMS / LABS 08/15 ED: RESP 12-25, O2 SATS 89% RA > 95-96% 3L/ NC 08/16 H & P ([facility]) CHIEF COMPLAINT : SHORTNESS OF BREATH, SYMPTOMS STARTED SUDDENLY AND HAS BEEN GRADUALLY WORSENING RISK: PNEUMONIA ( H & P) SOB ( H & P) POSSIBLE SEPSIS (ED REPORT ) TREATMENTS SUPPLEMENTAL O2 KEEP SATS > 92% MONITORING OF O2 SATS ZITHROMAX IV ( 08/16-PRESENT) MAXIPIME IV( 08/16-PRESENT) THANK YOU! MARISA (This form is maintained as a part of the permanent medical record) [employer] 2015 [employer] All Rights Reserved [email or web address] [phone] MTDD
--- NOTE | 2018-08-18 14:02 | NM ---
NM Bone Scan STANDARD History: [Thoracic spine abnormality] Comparison: CT angiogram August 15, 2018. Findings: Cycle body imaging was obtained after the intravenous ministration 29.5 mCi technetium 99m MDP. There is abnormal radiotracer uptake within the manubrium of the sternum at the sternoclavicular join ts, degenerative in nature. Degenerative changes are present in both glenohumeral and acromioclavicular joints. Abnormal increased uptake left anterior first rib from hypertrophic degenerative changes. Healing lef t-sided anterior rib fractures. Abnormal uptake in the posterior elements of the spine at T10 and T11 with uptake along bridging oste ophytes. Impression: 1. Abnormal increased radiotracer uptake multiple anterior left ribs from healing fractures. 2. T10-T11 vertebral body uptake sequelae of her osseous remodeling from a fracture of the T10 verteb ral body.
--- NOTE | 2018-08-18 14:20 | PDOC.PN ---
- Subjective Encounter Start Date: 08/18/18 Encounter Start Time: 09:20 Pt seen for followup re: pneumonia. Feels slightly better. - Objective Resuscitation Status - Order Detail: 08/16/18 02:56 Resuscitation Status Routine Resuscitation Status: FULL: Full Resuscitation MAR Reviewed: Yes Vital Signs & Weight: Vital Signs (12 hours) Temp Pulse Resp BP BP Pulse Ox 08/18/18 11:43 98.4 F 64 20 138/75 96 08/18/18 08:00 98.7 F 88 20 167/77 H 92 L 08/18/18 04:59 98.3 F 80 20 135/75 92 L Weight Weight 251 lb 12.286 oz I&O: 08/17/18 08/18/18 08/19/18 06:59 06:59 06:59 Intake Total 2950 2533 Output Total 1450 950 Balance 1500 1583 Result Diagrams: 08/18/18 05:49 08/18/18 05:49 Additional Labs: Labs reviewed by me Phys Exam - Physical Examination Constitutional: NAD HEENT: moist MMs Neck: supple Respiratory: clear to auscultation bilateral Cardiovascular: RRR Gastrointestinal: soft Neurological: moves all 4 limbs Psychiatric: normal affect Dx/Plan (1) Pneumonia Code(s): J18.9 - PNEUMONIA, UNSPECIFIED ORGANISM Status: Acute Comment: Improving, continue cefepime and azithromycin (2) Generalized weakness Code(s): R53.1 - WEAKNESS Status: Acute Comment: May need Inpt Rehab (3) Bone lesion Code(s): M89.9 - DISORDER OF BONE, UNSPECIFIED Status: Acute Comment: Bone scan today to evaluate (4) CAD (coronary artery disease) Code(s): I25.10 - ATHSCL HEART DISEASE OF [place] CORONARY ARTERY W/O ANG PCTRS Status: Chronic Comment: stable (5) Dyslipidemia Code(s): E78.5 - HYPERLIPIDEMIA, UNSPECIFIED Status: Chronic Comment: continue lipitor (6) HTN (hypertension) Code(s): I10 - ESSENTIAL (PRIMARY) HYPERTENSION Status: Chronic Comment: controlled (7) Gout Code(s): M10.9 - GOUT, UNSPECIFIED Status: Chronic Comment: stable, on colchicine (8) Acute respiratory failure with hypoxia Code(s): J96.01 - ACUTE RESPIRATORY FAILURE WITH HYPOXIA Status: Resolved Comment: present on admission (9) Sepsis due to pneumonia Code(s): J18.9 - PNEUMONIA, UNSPECIFIED ORGANISM; A41.9 - SEPSIS, UNSPECIFIED ORGANISM Status: Resolved Comment: present on admission - Plan * . Review of Systems - Review of Systems Constitutional: weakness Respiratory: Cough, Dry. negative: Shortness of Breath, Hemoptysis, SOB with Excertion, Pleuritic Pain, Sputum, Wheezing Cardiovascular: negative: chest pain, palpitations, orthopnea, paroxysmal nocturnal dyspnea, edema, light headedness - Medications/Allergies Allergies/Adverse Reactions: Allergies Allergy/AdvReac Type Severity Reaction Status Date / Time No Known Allergies Allergy Verified 06/26/15 11:13 Medications: Current Medications Acetaminophen (Tylenol) 650 mg PO Q6H PRN PRN Reason: Headache/Fever or Pain Last Admin: 08/17/18 20:18 Dose: 650 mg Acidophilus (Floranex) 1 tab PO QPM [facility] Last Admin: 08/17/18 20:17 Dose: 1 tab Allopurinol (Zyloprim) 100 mg PO DAILY [facility] Last Admin: 08/18/18 07:50 Dose: 100 mg Aspirin (Aspirin Chewable) 81 mg PO QPM [facility] Last Admin: 08/17/18 20:18 Dose: 81 mg Atorvastatin Calcium (Lipitor) 20 mg PO QPM [facility] Last Admin: 08/17/18 20:16 Dose: 20 mg Cholecalciferol (Vitamin D3) 1,000 units PO QPM [facility] Last Admin: 08/17/18 20:17 Dose: 1,000 units Clopidogrel Bisulfate (Plavix) 37.5 mg PO QPM [facility] Last Admin: 08/17/18 20:16 Dose: 37.5 mg Colchicine (Colchicine) 0.6 mg PO QAM [facility] Last Admin: 08/18/18 07:50 Dose: 0.6 mg Cyanocobalamin (Vitamin B-12) 1,000 mcg PO DAILY [facility] Last Admin: 08/18/18 07:49 Dose: 1,000 mcg Docusate Sodium (Colace) 100 mg PO DAILY [facility] Last Admin: 08/18/18 07:50 Dose: 100 mg Furosemide (Lasix) 40 mg PO QAM [facility] Last Admin: 08/18/18 07:50 Dose: 40 mg Guaifenesin (Mucinex) 1,200 mg PO Q12HR [facility] Last Admin: 08/18/18 09:48 Dose: 1,200 mg Cefepime HCl 1 gm/ Sodium (Chloride) 100 mls @ 200 mls/hr IVPB Q12HR [facility] Last Admin: 08/18/18 07:50 Dose: 100 mls Azithromycin 500 mg/ Sodium (Chloride) 250 mls @ 250 mls/hr IVPB Q24HR [facility] Last Admin: 08/17/18 21:06 Dose: 250 mls Sodium Chloride (Normal Saline 0.9%) 1,000 mls @ 75 mls/hr IV .[id number] [facility] Last Admin: 08/18/18 13:50 Dose: 1,000 mls Loratadine (Claritin) 10 mg PO DAILY [facility] Last Admin: 08/18/18 07:50 Dose: 10 mg Magnesium Hydroxide (Milk Of Magnesium) 30 ml PO BID PRN PRN Reason: Constipation Last Admin: 08/18/18 07:49 Dose: 30 ml Magnesium Oxide (Magnesium Oxide) 250 mg PO QPM [facility] Last Admin: 08/17/18 20:20 Dose: 250 mg Metoprolol Tartrate (Lopressor) 25 mg PO DAILY [facility] Last Admin: 08/18/18 07:50 Dose: 25 mg Potassium Chloride (K-Dur) 20 meq PO QAM-WM [facility] Last Admin: 08/18/18 07:50 Dose: 20 meq Primidone (Mysoline) 50 mg PO BID [facility] Last Admin: 08/18/18 08:42 Dose: 50 mg
[2018-08-18] MEDS: Aspirin Chewable 81 MG TAB PO SCH (20:18)
[2018-08-18] MEDS: Acetaminophen 325 MG TAB PO PRN (20:18)
[2018-08-18] MEDS: Azithromycin 500 MG in Sodium Chloride 0.9% 250 ML 250 ML IVPB SCH (20:19)
[2018-08-18] MEDS: Atorvastatin Calcium 20 MG TAB PO SCH (20:19)
[2018-08-18] MEDS: Clopidogrel Bisulfate 75 MG TAB PO SCH (20:19)
[2018-08-18] MEDS: Lactinex Tablet PO SCH (20:19)
[2018-08-18] MEDS: Magnesium Oxide 250 MG TAB PO SCH (20:19)
[2018-08-19] MEDS: Sodium Chloride 0.9% 1,000 ML IV SCH ×2 (05:00→20:18)
[2018-08-19 08:37] LABS: #Eosinphils 0.2 thou/uL (0.0-0.7); #Lymphocytes 0.8 thou/uL (1.20-3.40); #Monocytes 0.4 thou/uL (0.11-0.59); #Neutrophils 3.6 thou/uL (1.40-6.50); %Basophils 0.3 % (0.0-1.0); %Eosinophils 3.9 % (0.0-10.0); %Lymphocytes 16.5 % (21.0-51.0); %Monocytes 8.5 % (0.0-10.0); %Neutrophils 70.8 % (42.0-75.0); Hemoglobin 11.1 g/dL (14.0-18.0); Mean Corpuscular HGB CONC 32.9 g/dL (32.0-36.0); Mean Corpuscular Hemoglobin 36.9 pg (27.0-31.0); Mean Platelet Volume 8.6 fL (7.4-10.4); Platelet Count 118 thou/uL (130-400); RBC Distribution Width 12.1 % (11.5-14.5); White Blood Cell (WBC) Count 5.1 thou/uL (4.8-10.8)
[2018-08-19 08:49] LABS: Anion Gap 10 mmol/L (10-20); BUN (Urea Nitrogen) 22 mg/dL (8.4-25.7); Calc. Creatinine Clearance 81 mL/min (70-130); Calcium 11.2 mg/dL (7.8-10.44); Carbon Dioxide 29 mmol/L (23-31); Chloride 105 mmol/L (98-107); Estimated GFR-MDRD 62; Glucose 86 mg/dL (83-110); Potassium 3.9 mmol/L (3.5-5.1); Sodium 140 mmol/L (136-145)
[2018-08-19] MEDS: Allopurinol 100 MG TAB PO SCH (10:16)
[2018-08-19] MEDS: Colchicine 0.6 MG TAB PO SCH (10:16)
[2018-08-19] MEDS: Metoprolol Tartrate 25 MG TAB PO SCH (10:16)
[2018-08-19] MEDS: Potassium Chloride 20 MEQ TAB PO SCH (10:16)
[2018-08-19] MEDS: Cyanocobalamin (Vitamin B-12) 1,000 MCG TAB PO SCH (10:17)
[2018-08-19] MEDS: Docusate 100 MG CAP PO SCH (10:17)
[2018-08-19] MEDS: Loratadine 10 MG TAB PO SCH (10:17)
[2018-08-19] MEDS: guaiFENesin ER 600 MG TAB PO SCH ×2 (10:17→20:14)
[2018-08-19] MEDS: Furosemide 40 MG TAB PO SCH (10:18)
[2018-08-19] MEDS: Cefepime 1 GM in Sodium Chloride 0.9% 100 ML IVPB SCH ×2 (10:18→20:31)
[2018-08-19] MEDS: Primidone 50 MG TAB PO SCH ×2 (10:19→20:15)
[2018-08-19] MEDS: Acetaminophen 325 MG TAB PO PRN ×2 (15:39→22:07)
--- NOTE | 2018-08-19 17:47 | PDOC.PN ---
- Subjective Encounter Start Date: 08/19/18 Encounter Start Time: 09:00 Pt seen for followup re: pneumonia. Feels weak. - Objective Resuscitation Status - Order Detail: 08/16/18 02:56 Resuscitation Status Routine Resuscitation Status: FULL: Full Resuscitation Vital Signs & Weight: Vital Signs (12 hours) Temp Pulse Resp BP Pulse Ox 08/19/18 08:12 92 L 08/19/18 08:00 98.5 F 77 18 145/79 H 92 L Weight Weight 251 lb 12.286 oz I&O: 08/18/18 08/19/18 08/20/18 06:59 06:59 06:59 Intake Total 2533 2700 Output Total 950 850 Balance 1583 1850 Result Diagrams: 08/19/18 07:42 08/19/18 07:42 Phys Exam - Physical Examination Constitutional: NAD HEENT: moist MMs Neck: supple Respiratory: clear to auscultation bilateral Cardiovascular: RRR Gastrointestinal: soft Neurological: moves all 4 limbs Psychiatric: normal affect Dx/Plan (1) Pneumonia Code(s): J18.9 - PNEUMONIA, UNSPECIFIED ORGANISM Status: Acute Comment: Improving, will continue cefepime and azithromycin. repeat chest x-ray (2) Generalized weakness Code(s): R53.1 - WEAKNESS Status: Acute Comment: May need Inpt Rehab (3) CAD (coronary artery disease) Code(s): I25.10 - ATHSCL HEART DISEASE OF [place] CORONARY ARTERY W/O ANG PCTRS Status: Chronic Comment: stable (4) Dyslipidemia Code(s): E78.5 - HYPERLIPIDEMIA, UNSPECIFIED Status: Chronic Comment: continue lipitor (5) HTN (hypertension) Code(s): I10 - ESSENTIAL (PRIMARY) HYPERTENSION Status: Chronic Comment: controlled (6) Gout Code(s): M10.9 - GOUT, UNSPECIFIED Status: Chronic Comment: stable (7) Acute respiratory failure with hypoxia Code(s): J96.01 - ACUTE RESPIRATORY FAILURE WITH HYPOXIA Status: Resolved Comment: present on admission (8) Sepsis due to pneumonia Code(s): J18.9 - PNEUMONIA, UNSPECIFIED ORGANISM; A41.9 - SEPSIS, UNSPECIFIED ORGANISM Status: Resolved (9) Bone lesion Code(s): M89.9 - DISORDER OF BONE, UNSPECIFIED Status: Resolved Comment: Bone scan reassuring - Plan * . Review of Systems - Review of Systems Constitutional: negative: fever, chills, sweats, weakness, malaise Respiratory: Cough, Dry. negative: Shortness of Breath, Hemoptysis, SOB with Excertion, Pleuritic Pain, Sputum, Wheezing - Medications/Allergies Allergies/Adverse Reactions: Allergies Allergy/AdvReac Type Severity Reaction Status Date / Time No Known Allergies Allergy Verified 06/26/15 11:13 Medications: Current Medications Acetaminophen (Tylenol) 650 mg PO Q6H PRN PRN Reason: Headache/Fever or Pain Last Admin: 08/19/18 15:39 Dose: 650 mg Acidophilus (Floranex) 1 tab PO QPM [facility] Last Admin: 08/18/18 20:19 Dose: 1 tab Allopurinol (Zyloprim) 100 mg PO DAILY [facility] Last Admin: 08/19/18 10:16 Dose: 100 mg Aspirin (Aspirin Chewable) 81 mg PO QPM [facility] Last Admin: 08/18/18 20:18 Dose: 81 mg Atorvastatin Calcium (Lipitor) 20 mg PO QPM [facility] Last Admin: 08/18/18 20:19 Dose: 20 mg Cholecalciferol (Vitamin D3) 1,000 units PO QPM [facility] Last Admin: 08/18/18 20:19 Dose: 1,000 units Clopidogrel Bisulfate (Plavix) 37.5 mg PO QPM [facility] Last Admin: 08/18/18 20:19 Dose: 37.5 mg Colchicine (Colchicine) 0.6 mg PO QAM [facility] Last Admin: 08/19/18 10:16 Dose: 0.6 mg Cyanocobalamin (Vitamin B-12) 1,000 mcg PO DAILY [facility] Last Admin: 08/19/18 10:17 Dose: 1,000 mcg Docusate Sodium (Colace) 100 mg PO DAILY [facility] Last Admin: 08/19/18 10:17 Dose: Not Given Furosemide (Lasix) 40 mg PO QAM [facility] Last Admin: 08/19/18 10:18 Dose: 40 mg Guaifenesin (Mucinex) 1,200 mg PO Q12HR [facility] Last Admin: 08/19/18 10:17 Dose: 1,200 mg Cefepime HCl 1 gm/ Sodium (Chloride) 100 mls @ 200 mls/hr IVPB Q12HR [facility] Last Admin: 08/19/18 10:18 Dose: 100 mls Azithromycin 500 mg/ Sodium (Chloride) 250 mls @ 250 mls/hr IVPB Q24HR [facility] Last Admin: 08/18/18 20:19 Dose: 250 mls Sodium Chloride (Normal Saline 0.9%) 1,000 mls @ 75 mls/hr IV .[id number] [facility] Last Admin: 08/19/18 05:00 Dose: 1,000 mls Loratadine (Claritin) 10 mg PO DAILY [facility] Last Admin: 08/19/18 10:17 Dose: 10 mg Magnesium Hydroxide (Milk Of Magnesium) 30 ml PO BID PRN PRN Reason: Constipation Last Admin: 08/18/18 07:49 Dose: 30 ml Magnesium Oxide (Magnesium Oxide) 250 mg PO QPM [facility] Last Admin: 08/18/18 20:19 Dose: 250 mg Metoprolol Tartrate (Lopressor) 25 mg PO DAILY [facility] Last Admin: 08/19/18 10:16 Dose: 25 mg Potassium Chloride (K-Dur) 20 meq PO QAM-WM [facility] Last Admin: 08/19/18 10:16 Dose: 20 meq Primidone (Mysoline) 50 mg PO BID [facility] Last Admin: 08/19/18 10:19 Dose: 50 mg
[2018-08-19] MEDS: Aspirin Chewable 81 MG TAB PO SCH (20:14)
[2018-08-19] MEDS: Atorvastatin Calcium 20 MG TAB PO SCH (20:14)
[2018-08-19] MEDS: Azithromycin 500 MG in Sodium Chloride 0.9% 250 ML 250 ML IVPB SCH (20:14)
[2018-08-19] MEDS: Lactinex Tablet PO SCH (20:14)
[2018-08-19] MEDS: Clopidogrel Bisulfate 75 MG TAB PO SCH (20:14)
[2018-08-19] MEDS: Magnesium Oxide 250 MG TAB PO SCH (20:15)
[2018-08-20 05:43] LABS: #Eosinphils 0.3 thou/uL (0.0-0.7); #Lymphocytes 1.1 thou/uL (1.20-3.40); #Monocytes 0.6 thou/uL (0.11-0.59); %Basophils 0.6 % (0.0-1.0); %Eosinophils 5.3 % (0.0-10.0); %Lymphocytes 21.7 % (21.0-51.0); %Monocytes 12.3 % (0.0-10.0); %Neutrophils 60.1 % (42.0-75.0); Hemoglobin 11.5 g/dL (14.0-18.0); Mean Corpuscular HGB CONC 33.2 g/dL (32.0-36.0); Mean Corpuscular Hemoglobin 36.5 pg (27.0-31.0); Mean Platelet Volume 8.2 fL (7.4-10.4); Platelet Count 123 thou/uL (130-400); RBC Distribution Width 11.8 % (11.5-14.5); Red Blood Cell (RBC) Count 3.15 mill/uL (4.70-6.10)
[2018-08-20 06:30] LABS: Anion Gap 11 mmol/L (10-20); BUN (Urea Nitrogen) 21 mg/dL (8.4-25.7); Calc. Creatinine Clearance 83 mL/min (70-130); Calcium 10.6 mg/dL (7.8-10.44); Carbon Dioxide 28 mmol/L (23-31); Chloride 104 mmol/L (98-107); Estimated GFR-MDRD 63; Glucose 86 mg/dL (83-110); Potassium 3.6 mmol/L (3.5-5.1); Sodium 139 mmol/L (136-145)
--- NOTE | 2018-08-20 08:27 | RAD ---
2 views of chest: 08/20/2018 COMPARISON: 08/15/2018 HISTORY: Pneumonia FINDINGS: There is prominent degenerative change involving the right shoulder. Postoperative anchors overlie the right humeral head. Midline sternotomy wires and mediastinal clips are present. No pneumothorax is noted. Right lung appe ars grossly unremarkable. There is dense opacity within the medial left base. Evaluation of the left base is limited secondary to elevation of the left hemidiaphragm. Slight blunting of left costophrenic angle noted. IMPRESSION: Evaluation of the left base is limited secondary to elevation of left hemidiaphragm. Mccray shay, there does appear to be increased parenchymal and pleural opacity in the left base suspicious for superimposed infectious pneumonitis, aspiration, and/or small volume pleural fluid. Follow-up maria teresa ging following treatment thus advised.
[2018-08-20] MEDS: guaiFENesin ER 600 MG TAB PO SCH (09:00)
[2018-08-20] MEDS: Loratadine 10 MG TAB PO SCH (09:01)
[2018-08-20] MEDS: Allopurinol 100 MG TAB PO SCH (09:01)
[2018-08-20] MEDS: Colchicine 0.6 MG TAB PO SCH (09:01)
[2018-08-20] MEDS: Cyanocobalamin (Vitamin B-12) 1,000 MCG TAB PO SCH (09:01)
[2018-08-20] MEDS: Metoprolol Tartrate 25 MG TAB PO SCH (09:01)
[2018-08-20] MEDS: Potassium Chloride 20 MEQ TAB PO SCH (09:01)
[2018-08-20] MEDS: Furosemide 40 MG TAB PO SCH (09:01)
[2018-08-20] MEDS: Docusate 100 MG CAP PO SCH (09:02)
[2018-08-20] MEDS: Primidone 50 MG TAB PO SCH (09:02)
[2018-08-20] MEDS: Cefepime 1 GM in Sodium Chloride 0.9% 100 ML IVPB SCH (09:02)
[2018-08-20 11:54] VITALS: BP 144/73; TEMP 98.6
[2018-08-20] MEDS ORDERED: Cefdinir 300 MG CAP PO SCH ×2 (13:00→21:00)
[2018-08-20] MEDS: Sodium Chloride 0.9% 1,000 ML IV SCH (13:03)
--- NOTE | 2018-08-21 01:20 | DIS ---
DATE OF ADMISSION: 08/15/2018 DATE OF DISCHARGE: 08/20/2018 PRIMARY CARE PROVIDER: Nicolas Reardon MD. DISCHARGE DIAGNOSES: 1. Sepsis. 2. Pneumonia causing sepsis. 3. Acute hypoxic respiratory failure. 4. Physical deconditioning. CONDITION OF PATIENT ON THE DAY OF DISCHARGE: Patient on the day of discharge: Stable. I assessed Mr. Perez on the day of discharge. He reports feeling better. He denies cough. He is ambulating with therapy Services. Vital signs are stable. S1 and S2 are heard, regular. Lungs are clear to auscultation bilaterally. DISCHARGE MEDICATIONS: 1. Allopurinol 100 mg daily. 2. Aspirin 81 mg daily. 3. Lipitor 20 mg daily. 4. Cetirizine 10 mg daily. 5. Plavix 37.5 mg daily. 6. Colchicine 0.6 mg daily. 7. Vitamin B12 1000 mcg daily. 8. Colace 100 mg daily. 9. Furosemide 40 mg daily. 10. Probiotic one capsule daily. 11. Magnesium 250 mg daily. 12. Metoprolol tartrate 25 mg daily. 13. Potassium chloride 20 mEq daily. 14. Primidone 50 mg 2 times a day. 15. Mucinex 1200 mg every 12 hours. 16. Tylenol p.r.n. 17. Cefdinir 300 mg 2 times a day for 10 days. HOSPITAL COURSE: Mr. Perez is a pleasant 83-year-old gentleman, who was admitted to [facility] on August 15, 2018, for sepsis secondary to pneumonia. He was treated with intravenous antibiotics. At the time of admission, he had CT angiogram of the chest, which did not show pulmonary embolism in the main pulmonary arteries. He had a low-density lesion in the thoracic spine. When he was clinically stable, he went on to have nuclear bone scan, which showed abnormal increased radiotracer uptake, multiple anterior left ribs from healing fractures. T10-11 vertebral body uptake was sequela of osseous remodeling from fracture of T10 vertebral body. He continued to improve in terms of pneumonia. He was physically deconditioned. He was seen by Therapy Services. He has been accepted for further management at [facility]. Final blood cultures were negative. Final urine culture grew a gram-negative charline, which was less than 10,000 colony forming units per mL. On the day of discharge, he has white count of 5000, hemoglobin 11.5, platelet count 123,000. Normal electrolytes and normal creatinine. At the time of admission, he was taking vitamin D. His calcium level was 10.6 on the day of discharge. Vitamin D has been discontinued at the time of discharge. Many thanks for allowing me to participate in your patient's care. Please feel free to contact me with any questions or concerns. DISCHARGE DESTINATION: [facility]. TIME SPENT: Total amount of time spent coordinating this discharge: 32 minutes. Job ID: [id number]
== END 2018-08-20 13:59 | DRG 871 ==
LOC: ERS 14:58 → T4-B 20:00
PROVIDERS: ADMIT Hospitalist; ATTEND Hospitalist
DX: A41.9 Sepsis, unspecified organism (principal); J18.9 Pneumonia, unspecified organism; J96.01 Acute respiratory failure with hypoxia; N17.9 Acute kidney failure, unspecified; I25.10 Atherosclerotic heart disease of native coronary artery without angina pectoris; M10.9 Gout, unspecified; E78.5 Hyperlipidemia, unspecified; I10 Essential (primary) hypertension; D53.9 Nutritional anemia, unspecified; M89.9 Disorder of bone, unspecified; Z95.1 Presence of aortocoronary bypass graft; Z79.02 Long term (current) use of antithrombotics/antiplatelets; Z79.899 Other long term (current) drug therapy
CPT/HCPCS: 36415; 71045; 71046; 71275; 78306; 80048; 80053; 81003; 81015; 83605; 85025; 87040; 87086; 87804; 93005; 94760; 96365; 96368; 96375; A9503; J0456; J0692; J1885; J1956; J3490; J7050; Q9966

== ENCOUNTER 2018-09-23 10:42 | Inpatient (IN) | payer MEDICARE, OTHER ==
[2018-09-23 11:25] LABS: #Eosinphils 0.3 thou/uL (0.0-0.7); #Lymphocytes 1.4 thou/uL (1.20-3.40); #Monocytes 0.3 thou/uL (0.11-0.59); #Neutrophils 1.9 thou/uL (1.40-6.50); %Basophils 0.8 % (0.0-1.0); %Eosinophils 7.6 % (0.0-10.0); %Lymphocytes 35.8 % (21.0-51.0); %Monocytes 7.2 % (0.0-10.0); %Neutrophils 48.6 % (42.0-75.0); Hemoglobin 11.8 g/dL (14.0-18.0); Mean Corpuscular HGB CONC 33.4 g/dL (32.0-36.0); Mean Platelet Volume 8.2 fL (7.4-10.4); Platelet Count 147 thou/uL (130-400); RBC Distribution Width 12.5 % (11.5-14.5); Red Blood Cell (RBC) Count 3.18 mill/uL (4.70-6.10); White Blood Cell (WBC) Count 3.9 thou/uL (4.8-10.8)
[2018-09-23 11:47] LABS: ALT (SGPT) 11 U/L (8-55); AST (SGOT) 15 U/L (5-34); Alkaline Phosphatase 104 U/L (40-150); Anion Gap 10 mmol/L (10-20); BUN (Urea Nitrogen) 32 mg/dL (8.4-25.7); Bilirubin, Total 0.3 mg/dL (0.2-1.2); CK (CPK) 42 U/L (30-200); Calc. Creatinine Clearance 0 mL/min (70-130); Carbon Dioxide 31 mmol/L (23-31); Chloride 102 mmol/L (98-107); Estimated GFR-MDRD 33; Globulin 2.4 g/dL (2.4-3.5); Glucose 101 mg/dL (83-110); Magnesium 2.4 mg/dL (1.6-2.6); Potassium 4.4 mmol/L (3.5-5.1); Protein, Total 6.4 g/dL (5.8-8.1); Sodium 139 mmol/L (136-145)
[2018-09-23 11:54] LABS: Calcium 14.6 mg/dL (7.8-10.44)
--- NOTE | 2018-09-23 11:56 | RAD ---
XR Hip Lt 2-3 View HISTORY: Left hip pain COMPARISON: None. FINDINGS: The bones appear demineralized. Mild arthritic changes of the hip are seen. Postoperative c hanges of the spine are partially visualized. There are no signs of fracture. IMPRESSION: No acute changes.
--- NOTE | 2018-09-23 11:58 | RAD ---
XR Chest 1 View Portable HISTORY: Weakness. Syncope. COMPARISON: 08/15/2018 exams. FINDINGS: Heart size is enlarged with postop sternotomy changes. There is elevation to the left hemid iaphragm. Atelectatic changes are seen in the left base probably related to the elevated diaphragm. No confluent infiltrative process seen. IMPRESSION: Stable chest.
--- NOTE | 2018-09-23 11:59 | RAD ---
XR Pelvis AP STANDARD HISTORY: Pelvis and hip pain. Status post fall. COMPARISON: None. FINDINGS: The pelvic ring is intact without evidence of fracture. Mild arthritic changes of both hips are seen. Extensive postoperative changes and arthritic changes lower lumbar spine are noted. IMPRESSION: No evidence of acute fracture.
[2018-09-23 12:25] LABS: Bilirubin Negative (Negative); Blood, Urine Small (Negative); Clarity CLOUDY (Clear); Glucose, Urine (Dipstick) Negative (Negative); Leukocyte Negative (Negative); Nitrite Negative (Negative); Protein, Urine (Dipstick) 30 mg/dL (Neg-Trace); Specific Gravity, Urine 1.014 (1.002-1.036); Urobilinogen 0.2 mg/dL (0.2-1.0)
[2018-09-23 12:29] LABS: Bacteria/HPF None Seen HPF (None Seen); Hyaline Casts/LPF 0-3 HYALINE CAST LPF (0-3 Hyaline); Pathc Cast-AUWi Flag 0.13 (0-2.49); RBC/HPF 0-3 HPF (0-3); Squamous Epithelial 0-3 HPF (0-3); WBC/HPF 0-3 HPF (0-3)
[2018-09-23] MEDS ORDERED: Sodium Chloride 0.9% 1,000 ML IV SCH ×3 (15:00→20:00)
[2018-09-23] MEDS: Sodium Chloride 0.9% 1,000 ML IV SCH (15:10)
[2018-09-23] MEDS ORDERED: Zoledronic Acid 4 MG in Sodium Chloride 0.9% 100 ML IVPB SCH (18:30)
[2018-09-23] MEDS: Aspirin Chewable 81 MG TAB PO SCH (20:42)
[2018-09-23] MEDS: Magnesium Oxide 250 MG TAB PO SCH (20:42)
[2018-09-23] MEDS: Clopidogrel Bisulfate 75 MG TAB PO SCH (20:42)
[2018-09-24] MEDS: Sodium Chloride 0.9% 1,000 ML IV SCH (02:11)
[2018-09-24 04:47] LABS: #Eosinphils 0.2 thou/uL (0.0-0.7); #Lymphocytes 1.1 thou/uL (1.20-3.40); #Monocytes 0.2 thou/uL (0.11-0.59); #Neutrophils 1.4 thou/uL (1.40-6.50); %Basophils 0.5 % (0.0-1.0); %Eosinophils 6.7 % (0.0-10.0); %Lymphocytes 36.5 % (21.0-51.0); %Monocytes 7.2 % (0.0-10.0); %Neutrophils 49.1 % (42.0-75.0); Hemoglobin 8.5 g/dL (14.0-18.0); Mean Corpuscular HGB CONC 33.6 g/dL (32.0-36.0); Mean Corpuscular Hemoglobin 37.2 pg (27.0-31.0); Mean Platelet Volume 7.9 fL (7.4-10.4); Platelet Count 96 thou/uL (130-400); RBC Distribution Width 12.3 % (11.5-14.5); Red Blood Cell (RBC) Count 2.27 mill/uL (4.70-6.10); White Blood Cell (WBC) Count 2.9 thou/uL (4.8-10.8)
[2018-09-24 05:07] LABS: Anion Gap 8 mmol/L (10-20); BUN (Urea Nitrogen) 24 mg/dL (8.4-25.7); Calc. Creatinine Clearance 81 mL/min (70-130); Calcium 9.6 mg/dL (7.8-10.44); Carbon Dioxide 20 mmol/L (23-31); Chloride 119 mmol/L (98-107); Estimated GFR-MDRD 65; Glucose 64 mg/dL (83-110); Sodium 144 mmol/L (136-145)
[2018-09-24] MEDS: Docusate 100 MG CAP PO SCH (09:09)
[2018-09-24] MEDS: Loratadine 10 MG TAB PO SCH (09:09)
[2018-09-24] MEDS: Allopurinol 100 MG TAB PO SCH (09:09)
[2018-09-24] MEDS: Metoprolol Tartrate 25 MG TAB PO SCH (09:09)
[2018-09-24] MEDS: Cyanocobalamin (Vitamin B-12) 1,000 MCG TAB PO SCH (09:09)
[2018-09-24] MEDS: Enoxaparin Sodium 40 MG/0.4 ML SYRINGE SC SCH (09:10)
[2018-09-24] MEDS ORDERED: HYDROcodone/Acetaminophen 5/325 mg Tablet PO PRN ×2 (13:00)
--- NOTE | 2018-09-24 13:44 | PDOC.PN ---
- Subjective Encounter Start Date: 09/24/18 Encounter Start Time: 09:00 Subjective: pt up in bed still feels weak all over - Objective Resuscitation Status - Order Detail: 09/23/18 14:32 Resuscitation Status Routine Resuscitation Status: FULL: Full Resuscitation Vital Signs & Weight: Vital Signs (12 hours) Temp Pulse Resp BP Pulse Ox 09/24/18 12:00 98.5 F 62 16 135/89 93 L 09/24/18 08:00 96 09/24/18 07:30 97.2 F L 66 16 162/72 H 96 09/24/18 03:00 97.6 F 64 22 H 167/78 H 94 L Weight Weight 241 lb I&O: 09/23/18 09/24/18 09/25/18 06:59 06:59 06:59 Intake Total 3300 Output Total 1380 Balance 1920 Result Diagrams: 09/24/18 04:34 09/24/18 04:34 Phys Exam - Physical Examination Neck: no nodes, no JVD, supple, full ROM Respiratory: no wheezing, no rales, no rhonchi, wheezing present, clear to auscultation bilateral Cardiovascular: RRR, no significant murmur, no rub, gallop, irregular Gastrointestinal: soft, non-tender, no distention, positive bowel sounds Dx/Plan (1) Hypercalcemia Code(s): E83.52 - HYPERCALCEMIA Status: Acute (2) Generalized weakness Code(s): R53.1 - WEAKNESS Status: Acute Comment: May need Inpt Rehab (3) Gout Code(s): M10.9 - GOUT, UNSPECIFIED Status: Chronic Comment: stable (4) HTN (hypertension) Code(s): I10 - ESSENTIAL (PRIMARY) HYPERTENSION Status: Chronic Comment: controlled (5) Anemia Code(s): D64.9 - ANEMIA, UNSPECIFIED Status: Acute (6) Pancytopenia Code(s): D61.818 - OTHER PANCYTOPENIA Status: Acute - Plan will check stool for occult, his hh dropped which could cause him to -: feel weak. will also check cortisol, vit b12 he has pancytopenia -: will add ldh, pt/inr. SPEP/UPEP and light chain -: his calcium has normalized * . Review of Systems - Review of Systems Respiratory: negative: Cough, Dry, Shortness of Breath, Hemoptysis, SOB with Excertion, Pleuritic Pain, Sputum, Wheezing Cardiovascular: negative: chest pain, palpitations, orthopnea, paroxysmal nocturnal dyspnea, edema, light headedness, other Gastrointestinal: negative: Nausea, Vomiting, Abdominal Pain, Diarrhea, Constipation, Melena, Hematochezia, Other - Medications/Allergies Allergies/Adverse Reactions: Allergies Allergy/AdvReac Type Severity Reaction Status Date / Time No Known Allergies Allergy Verified 09/23/18 15:24 Medications: Current Medications Hydrocodone Bitart/Acetaminophen ([place] 5/325) 1 tab PO Q4HR PRN PRN Reason: Pain Allopurinol (Zyloprim) 100 mg PO DAILY [facility] Last Admin: 09/24/18 09:09 Dose: 100 mg Aspirin (Aspirin Chewable) 81 mg PO QPM [facility] Last Admin: 09/23/18 20:42 Dose: 81 mg Clopidogrel Bisulfate (Plavix) 37.5 mg PO QPM [facility] Last Admin: 09/23/18 20:42 Dose: 37.5 mg Cyanocobalamin (Vitamin B-12) 1,000 mcg PO DAILY [facility] Last Admin: 09/24/18 09:09 Dose: 1,000 mcg Docusate Sodium (Colace) 100 mg PO DAILY [facility] Last Admin: 09/24/18 09:09 Dose: 100 mg Enoxaparin Sodium (Lovenox) 40 mg SC 0900 [facility] Last Admin: 09/24/18 09:10 Dose: 40 mg Loratadine (Claritin) 10 mg PO DAILY [facility] Last Admin: 09/24/18 09:09 Dose: 10 mg Magnesium Oxide (Magnesium Oxide) 250 mg PO HS [facility] Last Admin: 09/23/18 20:42 Dose: 250 mg Metoprolol Tartrate (Lopressor) 25 mg PO DAILY [facility] Last Admin: 09/24/18 09:09 Dose: 25 mg Potassium Chloride (K-Dur) 40 meq PO NOW [facility] Stop: 09/24/18 15:45 Potassium Chloride (K-Dur) 40 meq PO 1800 [facility] Sodium Chloride (Flush - Normal Saline) 10 ml IVF Q12HR [facility] Last Admin: 09/24/18 09:12 Dose: Not Given Sodium Chloride (Flush - Normal Saline) 10 ml IVF PRN PRN PRN Reason: Saline Flush
[2018-09-24] MEDS ORDERED: Potassium Chloride 20 MEQ TAB PO SCH (13:45)
[2018-09-24] MEDS: HYDROcodone/Acetaminophen 5/325 mg Tablet PO PRN ×2 (14:09→18:19)
[2018-09-24 14:16] LABS: Reticulocyte Count 1.5 % (0.5-1.5)
[2018-09-24 14:23] LABS: INR-International Normal Ratio 1.1
[2018-09-24 14:37] LABS: Reference Lab Name LABCORP
[2018-09-24 14:51] LABS: Band 2 % (5-11); Elliptocytes SLIGHT = 2-5 cells (100X) (0-1/hpf); Eosinophils 2 % (0-10); Hemoglobin 10.7 g/dL (14.0-18.0); Lymphocytes 28 % (21-51); MDiff Complete? YES; Macrocytosis SLIGHT = 6-15 cells (100X) (0-5/hpf); Mean Corpuscular HGB CONC 34.4 g/dL (32.0-36.0); Mean Platelet Volume 7.8 fL (7.4-10.4); Monocytes 4 % (0-10); Neutrophil 63 % (42-75); Platelet Count 125 thou/uL (130-400); Platelet Morphology Comment Appears Decreased; Poikilocytosis SLIGHT = 6-15 cells (100X) (0-5/hpf); RBC Distribution Width 12.3 % (11.5-14.5); Reactive Lymphocytes 1 % (0-10); Red Blood Cell (RBC) Count 2.83 mill/uL (4.70-6.10); White Blood Cell (WBC) Count 3.5 thou/uL (4.8-10.8)
--- NOTE | 2018-09-24 16:31 | HP ---
CHIEF COMPLAINT: Generalized weakness. HISTORY OF PRESENT ILLNESS: The patient is a very pleasant 83-year-old male, who presents to the hospital with complaints of generalized weakness for the past couple of days. The patient recently was discharged from the hospital last month. He was treated for pneumonia and sepsis. At this time, he went to a SNF facility for rehabilitation and was in the SNF for about 2 weeks. The patient's daughter stated that he came home Friday last week and was doing well. However, on Friday, just felt very weak all over to the point that he had a couple of falls at home. The patient denied losing consciousness. Denied hitting his head. His legs gave out and he just went down on his bottom. The patient's daughter stated that the patient was using a walker for ambulating. However, over the weekend, he has been using a wheelchair since he has been so weak. Denies any fevers, any chills. He has a little bit of cough that the family noticed recently, however, no sputum production. He has been eating and drinking well according to the family. The patient's family did call the patient's primary care doctor, who first initially recommended to discontinue the simvastatin. However, his weakness continued at this time, I believe on Friday or Friday recommended to stop the Lasix and the vitamin D since some labs were drawn and the patient's calcium at that time was elevated. However, since the patient's weakness worsened, he was brought into the hospital. PAST MEDICAL HISTORY: The patient has a past medical history of high cholesterol, chronic back pain, MS, and has neuropathy. Also, has gout, hyperlipidemia, and hypertension. PAST SURGICAL HISTORY: He has had a bypass in 1991, two rotator cuff surgery, back surgeries, and salivary gland surgery. ALLERGIES: HE HAS NO KNOWN DRUG ALLERGIES. MEDICATIONS: As of the following; 1. Metoprolol 25 mg daily. 2. Allopurinol 100 mg daily. 3. Aspirin 81 mg daily. 4. Furosemide 40 mg daily. 5. Simvastatin 20 mg daily. 6. Clopidogrel 75 mg daily. 7. Zyrtec 10 mg daily. REVIEW OF SYSTEMS: All negative except for the ones mentioned above in the HPI. FAMILY HISTORY: History of MS in mother and father at the age of 90 with some heart disease. SOCIAL HISTORY: The patient is a former smoker. He does not drink any alcohol. Does not take any drugs. He is a full code. Lives with his family. PHYSICAL EXAMINATION: VITAL SIGNS: As of the following; temperature of 96.7, pulse 64, respiratory rate 16, oxygen saturation 96% on room air, and blood pressure 162/72. GENERAL: He is awake, alert, and oriented x3. Does not appear in any distress. HEENT: Normocephalic, atraumatic. Pupils are equal and reactive to light. They are very small, however, they are reactive. Mucous membranes appear dry. CARDIOVASCULAR: S1 and S2 present. No murmurs, rubs, or gallops. LUNGS: Clear to auscultation. No rhonchi or wheezes noted. ABDOMEN: Soft and nontender. Bowel sounds are present x2. EXTREMITIES: No edema. Pedal pulses are present x2. NEURO: Generalized weakness, however, he is able to move all 4 extremities. He is oriented x3. SKIN: No cuts, lesions, or bruises noted. LABORATORY RESULTS: As of the following; WBCs of 3.9, hemoglobin of 11.8, hematocrit of 35.3, and platelets of 147. Chemistries; sodium of 139, potassium of 4.4, chloride of 102, BUN of 32, creatinine of 1.97, and his calcium was 14.6. IMAGING DATA: The patient also had a chest x-ray, pelvic x-ray, and a hip x-ray. The hip x-ray did not show any acute abnormalities. The chest x-ray also did not show any acute processes. He does have an elevation of the left diaphragm, and the pelvic x-ray again did not indicate any acute fractures. ASSESSMENT AND PLAN: The patient is a very pleasant 83-year-old male, who presents to the hospital with generalized weakness. 1. Generalized weakness, most likely secondary to possible hypercalcemia. The patient's calcium level was 14. I will order a vitamin D and an intact PTH. His simvastatin, his Lasix and, his I believe vitamin D were discontinued. I will also check a TSH. The patient during his last visit was found to have some rib fractures and had a bone nuclear scan, which indicated abnormal increased radio uptake in the medial anterior ribs from a healing fracture and also T10-T11 vertebral body uptake sequela of osseous remodeling from a fracture of the T10 vertebral body. Upon further talking with the family prior to his previous admission, which was on August 20 for sepsis, for pneumonia, this patient would drive himself to work. 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 He does not recall any falls, except for the family had mentioned whenever he gets ill with some sort of infection that is when he gets weak and sometimes sustains a fall, however, that is once a year. He has been on some steroids intermittently when he gets sick according to the family, but they were not sure he is not on any chronic steroids. The patient stated that the only thing he can think about his rib being fractured is that he had lifted something in the toilet when the toilet was not working and twisted himself, which could have caused him to have the fracture, however, that is unlikely unless he has osteoporosis. The patient also denies any recent car accidents. I am not sure in terms of why he sustained those rib fractures and also the family stated at that the T10 fracture, it was an old fracture. However, they were very unclear about it. In this light, I will also order a parathyroid hormone-like peptide given his history of smoking. I will also go ahead and order an SPEP, UPEP, and a light chain profile. In reviewing his records, I have noted that he has had hypercalcemia since July of this year, prior to that, he was normal and he is also found to be a little anemic. I am not sure this is just due to elevated vitamin D levels versus there is some other smoldering malignancy. Then, I will also get Physical Therapy, Occupational Therapy to re-evaluate this patient. I will give him 2 L of normal saline. I will give him zoledronic acid and continue some high IV fluids and check labs in the morning. 2. History of coronary artery disease. We will continue his aspirin and Plavix and continue to monitor. 3. History of gout. We will continue his allopurinol. 4. History of allergies. We will continue his Zyrtec. 5. Deep venous thrombosis prophylaxis. We will put the patient on some SCDs. Job ID: [id number]
[2018-09-24] MEDS: Potassium Chloride 20 MEQ TAB PO SCH (18:21)
[2018-09-24] MEDS: Clopidogrel Bisulfate 75 MG TAB PO SCH (21:03)
[2018-09-24] MEDS: Aspirin Chewable 81 MG TAB PO SCH (21:03)
[2018-09-24] MEDS: Magnesium Oxide 250 MG TAB PO SCH (21:03)
[2018-09-25] MEDS: Sodium Chloride 0.9% 1,000 ML IV SCH ×3 (02:42→23:54)
[2018-09-25] MEDS: Acetaminophen 325 MG TAB PO PRN ×2 (04:32→16:21)
[2018-09-25 05:21] LABS: #Eosinphils 0.2 thou/uL (0.0-0.7); #Lymphocytes 0.8 thou/uL (1.20-3.40); #Monocytes 0.2 thou/uL (0.11-0.59); %Basophils 0.3 % (0.0-1.0); %Eosinophils 5.1 % (0.0-10.0); %Lymphocytes 23.7 % (21.0-51.0); %Monocytes 7.1 % (0.0-10.0); %Neutrophils 63.9 % (42.0-75.0); Hemoglobin 10.9 g/dL (14.0-18.0); Mean Corpuscular HGB CONC 34.3 g/dL (32.0-36.0); Mean Corpuscular Hemoglobin 37.6 pg (27.0-31.0); Mean Platelet Volume 7.8 fL (7.4-10.4); Platelet Count 114 thou/uL (130-400); RBC Distribution Width 12.2 % (11.5-14.5); Red Blood Cell (RBC) Count 2.89 mill/uL (4.70-6.10); White Blood Cell (WBC) Count 3.2 thou/uL (4.8-10.8)
[2018-09-25 05:43] LABS: Anion Gap 10 mmol/L (10-20); BUN (Urea Nitrogen) 35 mg/dL (8.4-25.7); Calc. Creatinine Clearance 41 mL/min (70-130); Calcium 12.7 mg/dL (7.8-10.44); Carbon Dioxide 26 mmol/L (23-31); Chloride 109 mmol/L (98-107); Estimated GFR-MDRD 30; Glucose 85 mg/dL (83-110); Potassium 4.6 mmol/L (3.5-5.1); Sodium 140 mmol/L (136-145)
[2018-09-25] MEDS ORDERED: Sodium Chloride 0.9% 1,000 ML IV SCH (06:00)
[2018-09-25] MEDS ORDERED: hydrALAZINE 20 MG/ML VIAL SLOW IVP PRN (09:18)
[2018-09-25] MEDS: Loratadine 10 MG TAB PO SCH (09:42)
[2018-09-25] MEDS: Metoprolol Tartrate 25 MG TAB PO SCH (09:42)
[2018-09-25] MEDS: Enoxaparin Sodium 40 MG/0.4 ML SYRINGE SC SCH (09:42)
[2018-09-25] MEDS: Cyanocobalamin (Vitamin B-12) 1,000 MCG TAB PO SCH (09:42)
[2018-09-25] MEDS: Docusate 100 MG CAP PO SCH (09:42)
[2018-09-25] MEDS: Allopurinol 100 MG TAB PO SCH (09:42)
[2018-09-25] MEDS: Sodium Chloride 0.45% 1,000 ML IV SCH (09:44)
[2018-09-25] MEDS ORDERED: Piperacillin/Tazobactam 3.375 GM in Sodium Chloride 0.9% 100 ML IVPB SCH (09:54)
[2018-09-25] MEDS: Piperacillin/Tazobactam 3.375 GM in Sodium Chloride 0.9% 100 ML IVPB SCH ×2 (12:33→18:24)
[2018-09-25] MEDS ORDERED: Vancomycin HCl 1.5 GM in Sodium Chloride 0.9% 250 ML 300 ML IVPB SCH (16:00)
[2018-09-25 16:26] LABS: Anion Gap 13 mmol/L (10-20); BUN (Urea Nitrogen) 33 mg/dL (8.4-25.7); Calc. Creatinine Clearance 41 mL/min (70-130); Carbon Dioxide 25 mmol/L (23-31); Chloride 107 mmol/L (98-107); Estimated GFR-MDRD 29; Glucose 84 mg/dL (83-110); Potassium 4.6 mmol/L (3.5-5.1); Sodium 140 mmol/L (136-145)
[2018-09-25 16:38] LABS: Bilirubin Negative (Negative); Blood, Urine Small (Negative); Clarity CLEAR (Clear); Glucose, Urine (Dipstick) Negative (Negative); Leukocyte Negative (Negative); Nitrite Negative (Negative); Protein, Urine (Dipstick) 30 mg/dL (Neg-Trace); Specific Gravity, Urine 1.016 (1.002-1.036); Urobilinogen 0.2 mg/dL (0.2-1.0); pH, Urine 7.5 (5.0-9.0)
[2018-09-25 16:40] LABS: Bacteria/HPF None Seen HPF (None Seen); Hyaline Casts/LPF 0-3 HYALINE CAST LPF (0-3 Hyaline); Pathc Cast-AUWi Flag 0.27 (0-2.49); Squamous Epithelial 0-3 HPF (0-3); WBC/HPF 0-3 HPF (0-3)
[2018-09-25 16:49] LABS: Urine Culture Reflex No No
[2018-09-25] MEDS: Potassium Chloride 20 MEQ TAB PO SCH (17:32)
[2018-09-25] MEDS: Clopidogrel Bisulfate 75 MG TAB PO SCH (21:01)
[2018-09-25] MEDS: Magnesium Oxide 250 MG TAB PO SCH (21:02)
[2018-09-25] MEDS: Aspirin Chewable 81 MG TAB PO SCH (21:02)
[2018-09-26] MEDS: Piperacillin/Tazobactam 3.375 GM in Sodium Chloride 0.9% 100 ML IVPB SCH ×5 (00:43→23:08)
[2018-09-26] MEDS: Sodium Chloride 0.45% 1,000 ML IV SCH ×2 (00:44→12:59)
[2018-09-26] MEDS ORDERED: Vancomycin HCl 1 GM in Premix Bag 1 BAG IVPB SCH (09:00)
[2018-09-26] MEDS: Enoxaparin Sodium 40 MG/0.4 ML SYRINGE SC SCH (09:59)
[2018-09-26] MEDS: Loratadine 10 MG TAB PO SCH (09:59)
[2018-09-26] MEDS: Allopurinol 100 MG TAB PO SCH (09:59)
[2018-09-26] MEDS: Docusate 100 MG CAP PO SCH (09:59)
[2018-09-26] MEDS: Cyanocobalamin (Vitamin B-12) 1,000 MCG TAB PO SCH (09:59)
[2018-09-26] MEDS: Metoprolol Tartrate 25 MG TAB PO SCH (09:59)
[2018-09-26 11:09] LABS: ALT (SGPT) 11 U/L (8-55); AST (SGOT) 13 U/L (5-34); Albumin 3.3 g/dL (3.4-4.8); Alkaline Phosphatase 86 U/L (40-150); Anion Gap 13 mmol/L (10-20); BUN (Urea Nitrogen) 30 mg/dL (8.4-25.7); Bilirubin, Total 0.5 mg/dL (0.2-1.2); Calc. Creatinine Clearance 40 mL/min (70-130); Calcium 10.8 mg/dL (7.8-10.44); Carbon Dioxide 20 mmol/L (23-31); Chloride 109 mmol/L (98-107); Estimated GFR-MDRD 29; Glucose 150 mg/dL (83-110); Potassium 4.1 mmol/L (3.5-5.1); Protein, Total 5.3 g/dL (5.8-8.1); Sodium 138 mmol/L (136-145)
[2018-09-26 12:28] LABS: #Basophils 0.1 thou/uL (0.0-0.2); #Eosinphils 0.3 thou/uL (0.0-0.7); #Lymphocytes 1.2 thou/uL (1.20-3.40); #Monocytes 0.3 thou/uL (0.11-0.59); #Neutrophils 3.2 thou/uL (1.40-6.50); %Basophils 1.1 % (0.0-1.0); %Eosinophils 5.3 % (0.0-10.0); %Lymphocytes 24.3 % (21.0-51.0); %Monocytes 6.7 % (0.0-10.0); %Neutrophils 62.6 % (42.0-75.0); Hemoglobin 10.5 g/dL (14.0-18.0); Mean Corpuscular HGB CONC 33.7 g/dL (32.0-36.0); Mean Corpuscular Hemoglobin 37.1 pg (27.0-31.0); Mean Platelet Volume 8.1 fL (7.4-10.4); Platelet Count 116 thou/uL (130-400); RBC Distribution Width 12.3 % (11.5-14.5); Red Blood Cell (RBC) Count 2.83 mill/uL (4.70-6.10)
--- NOTE | 2018-09-26 13:34 | PDOC.PN ---
- Subjective Encounter Start Date: 09/25/18 Encounter Start Time: 11:15 Subjective: pt up in bed feels very weak - Objective Resuscitation Status - Order Detail: 09/23/18 14:32 Resuscitation Status Routine Resuscitation Status: FULL: Full Resuscitation Vital Signs & Weight: Vital Signs (12 hours) Temp Pulse Resp BP Pulse Ox 09/26/18 08:35 98.4 F 70 18 157/72 H 92 L 09/26/18 03:52 98.2 F 75 19 133/69 95 Weight Weight 243 lb I&O: 09/25/18 09/26/18 09/27/18 06:59 06:59 06:59 Intake Total 1455 3575 360 Output Total 800 1350 Balance 655 2225 360 Result Diagrams: 09/26/18 12:23 09/26/18 10:39 Phys Exam - Physical Examination Neck: no nodes, no JVD, supple, full ROM Respiratory: no wheezing, no rales, no rhonchi, wheezing present, clear to auscultation bilateral Cardiovascular: RRR, no significant murmur, no rub, gallop, irregular Gastrointestinal: soft, non-tender, no distention, positive bowel sounds Dx/Plan (1) Hypercalcemia Code(s): E83.52 - HYPERCALCEMIA Status: Acute (2) Generalized weakness Code(s): R53.1 - WEAKNESS Status: Acute Comment: May need Inpt Rehab (3) Gout Code(s): M10.9 - GOUT, UNSPECIFIED Status: Chronic Comment: stable (4) HTN (hypertension) Code(s): I10 - ESSENTIAL (PRIMARY) HYPERTENSION Status: Chronic Comment: controlled (5) Anemia Code(s): D64.9 - ANEMIA, UNSPECIFIED Status: Acute (6) Pancytopenia Code(s): D61.818 - OTHER PANCYTOPENIA Status: Acute - Plan pt continues to have weakness -: will get blood cx and urine and start him on abx -: pt is not eating well which could cause him to have hypercalcemia * . Review of Systems - Review of Systems Constitutional: weakness Respiratory: negative: Cough, Dry, Shortness of Breath, Hemoptysis, SOB with Excertion, Pleuritic Pain, Sputum, Wheezing Cardiovascular: negative: chest pain, palpitations, orthopnea, paroxysmal nocturnal dyspnea, edema, light headedness, other Gastrointestinal: negative: Nausea, Vomiting, Abdominal Pain, Diarrhea, Constipation, Melena, Hematochezia, Other - Medications/Allergies Allergies/Adverse Reactions: Allergies Allergy/AdvReac Type Severity Reaction Status Date / Time No Known Allergies Allergy Verified 09/23/18 15:24 Medications: Current Medications Acetaminophen (Tylenol) 650 mg PO Q6H PRN PRN Reason: Headache/Fever or Pain Last Admin: 09/25/18 16:21 Dose: 650 mg Hydrocodone Bitart/Acetaminophen ([place] 5/325) 2 tab PO Q4HR PRN PRN Reason: Severe Pain (7-10) Last Admin: 09/24/18 18:19 Dose: 2 tab Hydrocodone Bitart/Acetaminophen ([place] 5/325) 1 tab PO Q4HR PRN PRN Reason: Moderate Pain (4-6) Last Admin: 09/25/18 09:55 Dose: 1 tab Allopurinol (Zyloprim) 100 mg PO DAILY [facility] Last Admin: 09/26/18 09:59 Dose: 100 mg Aspirin (Aspirin Chewable) 81 mg PO QPM [facility] Last Admin: 09/25/18 21:02 Dose: 81 mg Clopidogrel Bisulfate (Plavix) 37.5 mg PO QPM [facility] Last Admin: 09/25/18 21:01 Dose: 37.5 mg Cyanocobalamin (Vitamin B-12) 1,000 mcg PO DAILY [facility] Last Admin: 09/26/18 09:59 Dose: 1,000 mcg Docusate Sodium (Colace) 100 mg PO DAILY [facility] Last Admin: 09/26/18 09:59 Dose: 100 mg Heparin Sodium (Porcine) (Heparin) 5,000 units SC BID [facility] Hydralazine HCl (Apresoline) 10 mg SLOW IVP Q8H PRN PRN Reason: Blood Pressure Sodium Chloride (1/2 Normal Saline) 1,000 mls @ 75 mls/hr IV .[id number] [facility] Last Admin: 09/26/18 12:59 Dose: Not Given Piperacillin Sod/Tazobactam (Sod 3.375 gm/ Sodium Chloride) 100 mls @ 200 mls/ hr IVPB Q6HR [facility] Last Admin: 09/26/18 12:59 Dose: 100 mls Loratadine (Claritin) 10 mg PO DAILY [facility] Last Admin: 09/26/18 09:59 Dose: 10 mg Magnesium Oxide (Magnesium Oxide) 250 mg PO HS [facility] Last Admin: 09/25/18 21:02 Dose: 250 mg Metoprolol Tartrate (Lopressor) 25 mg PO DAILY [facility] Last Admin: 09/26/18 09:59 Dose: 25 mg Miscellaneous Medication (Pharmacy To Dose) 1 each IVPB ONE PRN PRN Reason: Pharmacy to dose Stop: 10/05/18 14:10 Potassium Chloride (K-Dur) 40 meq PO 1800 [facility] Last Admin: 09/25/18 17:32 Dose: 40 meq Sodium Chloride (Flush - Normal Saline) 10 ml IVF Q12HR [facility] Last Admin: 09/26/18 10:00 Dose: 10 ml Sodium Chloride (Flush - Normal Saline) 10 ml IVF PRN PRN PRN Reason: Saline Flush
--- NOTE | 2018-09-26 13:36 | PDOC.PN ---
- Subjective Encounter Start Date: 09/26/18 Encounter Start Time: 10:00 Subjective: pt up in bed feels much better - Objective Resuscitation Status - Order Detail: 09/23/18 14:32 Resuscitation Status Routine Resuscitation Status: FULL: Full Resuscitation Vital Signs & Weight: Vital Signs (12 hours) Temp Pulse Resp BP Pulse Ox 09/26/18 08:35 98.4 F 70 18 157/72 H 92 L 09/26/18 03:52 98.2 F 75 19 133/69 95 Weight Weight 243 lb I&O: 09/25/18 09/26/18 09/27/18 06:59 06:59 06:59 Intake Total 1455 3575 360 Output Total 800 1350 Balance 655 2225 360 Result Diagrams: 09/26/18 12:23 09/26/18 10:39 Phys Exam - Physical Examination Neck: no nodes, no JVD, supple, full ROM Respiratory: no wheezing, no rales, no rhonchi, wheezing present, clear to auscultation bilateral Cardiovascular: RRR, no significant murmur, no rub, gallop, irregular Gastrointestinal: soft, non-tender, no distention, positive bowel sounds Dx/Plan (1) Hypercalcemia Code(s): E83.52 - HYPERCALCEMIA Status: Acute (2) Generalized weakness Code(s): R53.1 - WEAKNESS Status: Acute Comment: May need Inpt Rehab (3) Gout Code(s): M10.9 - GOUT, UNSPECIFIED Status: Chronic Comment: stable (4) HTN (hypertension) Code(s): I10 - ESSENTIAL (PRIMARY) HYPERTENSION Status: Chronic Comment: controlled (5) Anemia Code(s): D64.9 - ANEMIA, UNSPECIFIED Status: Acute (6) Pancytopenia Code(s): D61.818 - OTHER PANCYTOPENIA Status: Acute (7) KERI (acute kidney injury) Code(s): N17.9 - ACUTE KIDNEY FAILURE, UNSPECIFIED Status: Acute (8) Thrombocytopenia Code(s): D69.6 - THROMBOCYTOPENIA, UNSPECIFIED Status: Acute - Plan pt now complains of left ear pain which according to him has -: been going on for like 3 days. will discontinue vanco -: worsening keri, bladder scan no residual will get ct -: abd/pel renal. will continue hydration -: will add heparin and scd. pt platelets are low, pls monitor * . Review of Systems - Review of Systems Respiratory: negative: Cough, Dry, Shortness of Breath, Hemoptysis, SOB with Excertion, Pleuritic Pain, Sputum, Wheezing Cardiovascular: negative: chest pain, palpitations, orthopnea, paroxysmal nocturnal dyspnea, edema, light headedness, other Gastrointestinal: negative: Nausea, Vomiting, Abdominal Pain, Diarrhea, Constipation, Melena, Hematochezia, Other - Medications/Allergies Allergies/Adverse Reactions: Allergies Allergy/AdvReac Type Severity Reaction Status Date / Time No Known Allergies Allergy Verified 09/23/18 15:24 Medications: Current Medications Acetaminophen (Tylenol) 650 mg PO Q6H PRN PRN Reason: Headache/Fever or Pain Last Admin: 09/25/18 16:21 Dose: 650 mg Hydrocodone Bitart/Acetaminophen ([place] 5/325) 2 tab PO Q4HR PRN PRN Reason: Severe Pain (7-10) Last Admin: 09/24/18 18:19 Dose: 2 tab Hydrocodone Bitart/Acetaminophen ([place] 5/325) 1 tab PO Q4HR PRN PRN Reason: Moderate Pain (4-6) Last Admin: 09/25/18 09:55 Dose: 1 tab Allopurinol (Zyloprim) 100 mg PO DAILY [facility] Last Admin: 09/26/18 09:59 Dose: 100 mg Aspirin (Aspirin Chewable) 81 mg PO QPM [facility] Last Admin: 09/25/18 21:02 Dose: 81 mg Clopidogrel Bisulfate (Plavix) 37.5 mg PO QPM [facility] Last Admin: 09/25/18 21:01 Dose: 37.5 mg Cyanocobalamin (Vitamin B-12) 1,000 mcg PO DAILY [facility] Last Admin: 09/26/18 09:59 Dose: 1,000 mcg Docusate Sodium (Colace) 100 mg PO DAILY [facility] Last Admin: 09/26/18 09:59 Dose: 100 mg Heparin Sodium (Porcine) (Heparin) 5,000 units SC BID [facility] Hydralazine HCl (Apresoline) 10 mg SLOW IVP Q8H PRN PRN Reason: Blood Pressure Sodium Chloride (1/2 Normal Saline) 1,000 mls @ 75 mls/hr IV .[id number] [facility] Last Admin: 09/26/18 12:59 Dose: Not Given Piperacillin Sod/Tazobactam (Sod 3.375 gm/ Sodium Chloride) 100 mls @ 200 mls/ hr IVPB Q6HR [facility] Last Admin: 09/26/18 12:59 Dose: 100 mls Loratadine (Claritin) 10 mg PO DAILY [facility] Last Admin: 09/26/18 09:59 Dose: 10 mg Magnesium Oxide (Magnesium Oxide) 250 mg PO HS [facility] Last Admin: 09/25/18 21:02 Dose: 250 mg Metoprolol Tartrate (Lopressor) 25 mg PO DAILY [facility] Last Admin: 09/26/18 09:59 Dose: 25 mg Miscellaneous Medication (Pharmacy To Dose) 1 each IVPB ONE PRN PRN Reason: Pharmacy to dose Stop: 10/05/18 14:10 Potassium Chloride (K-Dur) 40 meq PO 1800 [facility] Last Admin: 09/25/18 17:32 Dose: 40 meq Sodium Chloride (Flush - Normal Saline) 10 ml IVF Q12HR [facility] Last Admin: 09/26/18 10:00 Dose: 10 ml Sodium Chloride (Flush - Normal Saline) 10 ml IVF PRN PRN PRN Reason: Saline Flush
--- NOTE | 2018-09-26 14:01 | CT ---
CT Abdomen WO Con History: [Weakness. Kidney injury.] Comparison: CT abdomen and pelvis September 2017 Findings:There is consolidation peripheral aspect lingula and left lower lobe. Chronic elevation left diaphragm. The gallbladder is distended. No significant pericholecystic fluid. Multicystic kidneys. Multiple hypodensities of both kidneys not definitively cysts. Abnormal mass inf erior pole right kidney. No hydronephrosis. Spleen is unremarkable. Normal proximal small bowel rotation. Noncontrast evaluation of the liver and pancreas are unremarkable. Posterior spinal fusion hardware lumbar spine. Lucency through the cortex right posterior seventh rib axial image 9. Multiple small intervertebral medullary lucencies. Impression: 1. Numerous bilateral renal hypodensities not definitively cyst. Follow-up renal protocol CT or MRI i s recommended. 2. No evidence for hydronephrosis or obstructive uropathy. 3. High suspicion for a malignant process inferior pole right kidney. 4. 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 5. Subtle cortical lucency of the right posterior seventh rib may reflect osseous metastatic disease. There is abnormal sclerosis of the right 12th rib also concerning for possible metastatic disease.
--- NOTE | 2018-09-26 15:13 | EKG ---
Test Reason : Blood Pressure : / mmHG Vent. Rate : 078 BPM Atrial Rate : 078 BPM P-R Int : 192 ms QRS Dur : 156 ms QT Int : 402 ms P-R-T Axes : 007 -66 020 degrees QTc Int : 458 ms Normal sinus rhythm with sinus arrhythmia Right bundle branch block Left anterior fascicular block Bifascicular block Abnormal ECG Confirmed by YOLIS DUNN ([id number]), dictionary editor THOMAS PIPER ([id number]) on 09/26/2018 3:12:55 PM Referred By: Confirmed By:YOLIS DUNN
[2018-09-26] MEDS: Potassium Chloride 20 MEQ TAB PO SCH (18:20)
[2018-09-26] MEDS: Aspirin Chewable 81 MG TAB PO SCH (20:59)
[2018-09-26] MEDS: Magnesium Oxide 250 MG TAB PO SCH (21:00)
[2018-09-26] MEDS: Clopidogrel Bisulfate 75 MG TAB PO SCH (21:00)
[2018-09-26] MEDS: Heparin 5,000 UNITS/ML VIAL SC SCH (21:01)
[2018-09-27] MEDS: Piperacillin/Tazobactam 3.375 GM in Sodium Chloride 0.9% 100 ML IVPB SCH ×4 (05:35→23:35)
[2018-09-27] MEDS: Sodium Chloride 0.45% 1,000 ML IV SCH ×3 (05:36→23:35)
[2018-09-27 07:03] LABS: #Eosinphils 0.3 thou/uL (0.0-0.7); #Lymphocytes 1.1 thou/uL (1.20-3.40); #Monocytes 0.3 thou/uL (0.11-0.59); #Neutrophils 2.2 thou/uL (1.40-6.50); %Basophils 0.5 % (0.0-1.0); %Eosinophils 7.3 % (0.0-10.0); %Lymphocytes 28.4 % (21.0-51.0); %Monocytes 6.9 % (0.0-10.0); Hemoglobin 10.3 g/dL (14.0-18.0); Mean Corpuscular HGB CONC 34.1 g/dL (32.0-36.0); Mean Corpuscular Hemoglobin 37.7 pg (27.0-31.0); Mean Platelet Volume 8.4 fL (7.4-10.4); Platelet Count 117 thou/uL (130-400); RBC Distribution Width 12.3 % (11.5-14.5); Red Blood Cell (RBC) Count 2.72 mill/uL (4.70-6.10); White Blood Cell (WBC) Count 3.8 thou/uL (4.8-10.8)
[2018-09-27 07:13] LABS: ALT (SGPT) 13 U/L (8-55); AST (SGOT) 15 U/L (5-34); Albumin 3.4 g/dL (3.4-4.8); Alkaline Phosphatase 84 U/L (40-150); Anion Gap 12 mmol/L (10-20); BUN (Urea Nitrogen) 27 mg/dL (8.4-25.7); Bilirubin, Total 0.5 mg/dL (0.2-1.2); Calc. Creatinine Clearance 42 mL/min (70-130); Calcium 10.5 mg/dL (7.8-10.44); Carbon Dioxide 23 mmol/L (23-31); Chloride 108 mmol/L (98-107); Estimated GFR-MDRD 29; Globulin 2.2 g/dL (2.4-3.5); Glucose 72 mg/dL (83-110); Potassium 4.2 mmol/L (3.5-5.1); Protein, Total 5.6 g/dL (5.8-8.1); Sodium 139 mmol/L (136-145)
[2018-09-27] MEDS: Loratadine 10 MG TAB PO SCH (09:13)
[2018-09-27] MEDS: Allopurinol 100 MG TAB PO SCH (09:13)
[2018-09-27] MEDS: Docusate 100 MG CAP PO SCH (09:13)
[2018-09-27] MEDS: Cyanocobalamin (Vitamin B-12) 1,000 MCG TAB PO SCH (09:14)
[2018-09-27] MEDS: Metoprolol Tartrate 25 MG TAB PO SCH (09:14)
[2018-09-27] MEDS: Heparin 5,000 UNITS/ML VIAL SC SCH ×2 (09:25→20:52)
--- NOTE | 2018-09-27 14:22 | PDOC.PN ---
- Subjective Encounter Start Date: 09/27/18 Encounter Start Time: 14:15 Subjective: f/u for general weakness and ? metastatic process involving the -: kidneys with KERI/hypercalcemia tx with IVF's. - Objective Resuscitation Status - Order Detail: 09/23/18 14:32 Resuscitation Status Routine Resuscitation Status: FULL: Full Resuscitation MAR Reviewed: Yes Vital Signs & Weight: Vital Signs (12 hours) Temp Pulse Resp BP Pulse Ox 09/27/18 12:00 98.9 F 74 18 134/65 09/27/18 07:45 97.4 F L 70 18 142/79 H 97 09/27/18 04:11 96.1 F L 63 20 151/73 H 97 Weight Weight 248 lb 9.6 oz I&O: 09/26/18 09/27/18 09/28/18 06:59 06:59 06:59 Intake Total 3575 3660 Output Total 1350 1425 Balance 2225 2235 Result Diagrams: 09/27/18 05:17 09/27/18 05:17 Additional Labs: Microbiology 09/23/18 Unknown Urine clean catch Urine Culture - Final Gram Negative [place] 09/25/18 10:24 Venous blood - Left Arm Blood Culture - Preliminary NO GROWTH AT 48 HOURS 09/25/18 10:12 Venous blood - Right Hand Blood Culture - Preliminary NO GROWTH AT 48 HOURS Laboratory Tests 09/24/18 09/24/18 09/25/18 14:04 14:05 04:59 WBC 3.5 L Hgb 10.7 L Plt Count 125 L Creatinine 2.14 H Calcium 12.7 H* Vitamin B12 957 H 09/25/18 09/25/18 09/26/18 04:59 15:52 10:39 WBC 3.2 L Hgb 10.9 L Plt Count 114 L Creatinine 2.16 H 2.20 H Calcium 12.0 H 10.8 H Vitamin B12 09/26/18 12:23 WBC 5.0 Hgb 10.5 L Plt Count 116 L Creatinine Calcium Vitamin B12 Radiology Reviewed by me: Yes (CT abd - R inf pole kidney lesion, multiple bilat kidney lesions) EKG Reviewed by me: Yes (Tele - SR) Phys Exam - Physical Examination Constitutional: NAD HEENT: PERRLA, sclera anicteric, oral pharynx no lesions Neck: no nodes, no JVD, supple, full ROM Respiratory: no wheezing, no rales, no rhonchi, clear to auscultation bilateral S1, S2 Cardiovascular: RRR, no significant murmur, no rub, gallop Gastrointestinal: soft, non-tender, no distention, positive bowel sounds Musculoskeletal: pulses present, edema present Neurological: normal sensation, moves all 4 limbs Psychiatric: A&O x 3 Skin: normal turgor, cap refill <2 seconds Dx/Plan (1) KERI (acute kidney injury) Code(s): N17.9 - ACUTE KIDNEY FAILURE, UNSPECIFIED Status: Acute Comment: Persistent despite IVF's, avoid nephrotoxic meds and limit contrast exposure, monitor I/O's (2) Hypercalcemia Code(s): E83.52 - HYPERCALCEMIA Status: Acute Comment: Improved with IVF's, limit Ca++ supplements and Vit D (3) Renal mass, right Code(s): N28.89 - OTHER SPECIFIED DISORDERS OF KIDNEY AND URETER Status: Acute Comment: Suspected given CT imaging findings, Urology consulted, consider Renal bx vs palliative measures? 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
--- NOTE | 2018-09-27 17:49 | CON ---
DATE OF CONSULTATION: 09/27/2018 REASON FOR CONSULTATION: Right renal mass. HISTORY OF PRESENT ILLNESS: Mr. Perez is an 83-year-old gentleman, admitted to the hospital 09/24/2018 with generalized weakness. On admission, he was noted to have an elevated calcium. This is not a new finding as his serum calcium level has been elevated for at least 2 months. He underwent further evaluation by CT scan of the abdomen, looking for a source for hypercalcemia. He was noted to have a right lower pole renal mass. He was not given IV contrast for the study based on chronic renal insufficiency with baseline creatinine of ~ 2.1. In addition to the presumed solid renal mass in the lower pole of the right kidney, there are multiple bilateral renal cysts. His prior urologic history is significant for TURP one year ago by Dr. Suarez at [facility]. TURP was performed for urinary retention resulting in catheter placement and catheter associated problems of hematuria and UTI. With regards to voiding, he has been doing well since TURP. He denies any flank pain. He denies gross hematuria other than that mentioned above. Admission laboratory includes thrombocytopenia, anemia, and a creatinine of 2.16. PAST MEDICAL HISTORY: Significant for; 1. Hyperlipidemia. 2. Chronic back pain. 3. Myocardial infarction. 4. Gout. 5. Hypertension. PAST SURGICAL HISTORY: 1. Coronary artery bypass graft in 1991. 2. Rotator cuff surgery. 3. Back surgery. 4. Salivary gland surgery. ALLERGIES: NO KNOWN DRUG ALLERGIES. CHRONIC MEDICATIONS: 1. Metoprolol. 2. Allopurinol. 3. Aspirin. 4. Lasix. 5. Simvastatin. 6. Plavix. 7. Zyrtec. 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 Until recently, he was driving regularly. Denies excessive alcohol use. He does have a history of smoking. REVIEW OF SYSTEMS: GENERAL: weakness HEENT: Denies sinus pronblems, hearing difficulty, change in vision RESPIRATORY: Denies shortness of breath or wheezing. CARDIOVASCULAR: Denies chest pain or palpitations. GASTROINTESTINAL: Denies chronic constipation or diarrhea. NEUROLOGIC: No paresthesias, no numbness GENITOURINARY: Please see history of present illness. PHYSICAL EXAMINATION: GENERAL: He is an elderly gentleman. He is in no distress. HEENT: Normocephalic and atraumatic. NECK: Supple. No masses. CHEST: Clear to auscultation. CARDIOVASCULAR: No murmurs auscultated. ABDOMEN: Soft and nontender. No palpable masses. Liver and spleen not palpable. No abdominal tenderness noted. NEUROLOGIC: No focal abnormalities. DIAGNOSTIC STUDIES: CT scan, no IV contrast given. He has multiple cystic lesions in the kidney and one apparent probable solid lesion in the lower pole of the right kidney. IMPRESSION: Mr. Perez is an 83-year-old patient of Dr. Suarez, having had a transurethral resection of prostate one year ago. 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 Further imaging is needed to confirm solid nature of the mass. This can be achieved with renal US. If the mass is solid, then the likelihood of malignancy is high. Management options for renal cancer would include surveillance, percutaneous approaches, partial nephrectomy, and radical nephrectomy. Although, he would ideally be treated with a partial nephrectomy, this may be technically challenging based on tumor size and location. In addition, he has thrombocytopenia and would need platelet transfusion prior to any surgical approach. Radical nephrectomy would likely deem him cancer-free , but carries significant risk of dialysis post operatively. In that regard, he is followed by Dr. Flaherty and the risk of dialysis after nephrectomy would be an excellent question for Dr. Flaherty. Finally, nonoperative management with observation alone is reasonable, especially if the risk ofhemodialysis is significant. RECOMMENDATIONS: 1. Renal ultrasound for further characterization of the renal lesions. 2. Dr. Flaherty's opinion regarding need for dialysis if he were to undergo a right nephrectomy. 3. We will notify Dr. Suarez's office of his admission as per the patient's request. Job ID: [id number] MTDD
[2018-09-27] MEDS: Potassium Chloride 20 MEQ TAB PO SCH (18:02)
[2018-09-27] MEDS: Aspirin Chewable 81 MG TAB PO SCH (20:51)
[2018-09-27] MEDS: Acetaminophen 325 MG TAB PO PRN (20:51)
[2018-09-27] MEDS: Magnesium Oxide 250 MG TAB PO SCH (20:51)
[2018-09-27] MEDS: Clopidogrel Bisulfate 75 MG TAB PO SCH (20:52)
[2018-09-28] MEDS: Piperacillin/Tazobactam 3.375 GM in Sodium Chloride 0.9% 100 ML IVPB SCH ×3 (05:50→17:23)
[2018-09-28 05:57] LABS: Anion Gap 10 mmol/L (10-20); BUN (Urea Nitrogen) 24 mg/dL (8.4-25.7); Calc. Creatinine Clearance 45 mL/min (70-130); Calcium 9.4 mg/dL (7.8-10.44); Carbon Dioxide 22 mmol/L (23-31); Chloride 111 mmol/L (98-107); Estimated GFR-MDRD 32; Glucose 76 mg/dL (83-110); Potassium 4.1 mmol/L (3.5-5.1); Sodium 139 mmol/L (136-145)
[2018-09-28 06:04] LABS: Band 3 % (5-11); Eosinophils 5 % (0-10); Hemoglobin 10.3 g/dL (14.0-18.0); Lymphocytes 34 % (21-51); MDiff Complete? YES; Macrocytosis SLIGHT = 6-15 cells (100X) (0-5/hpf); Mean Corpuscular HGB CONC 34.4 g/dL (32.0-36.0); Mean Platelet Volume 8.5 fL (7.4-10.4); Monocytes 6 % (0-10); Neutrophil 52 % (42-75); Ovalocytes SLIGHT = 2-5 cells (100X) (0-1/hpf); Platelet Count 110 thou/uL (130-400); Platelet Morphology Comment Appears Decreased; RBC Distribution Width 12.2 % (11.5-14.5); Red Blood Cell (RBC) Count 2.72 mill/uL (4.70-6.10); White Blood Cell (WBC) Count 3.5 thou/uL (4.8-10.8)
[2018-09-28] MEDS: Docusate 100 MG CAP PO SCH (08:38)
[2018-09-28] MEDS: Metoprolol Tartrate 25 MG TAB PO SCH (08:38)
[2018-09-28] MEDS: Heparin 5,000 UNITS/ML VIAL SC SCH ×2 (08:38→20:13)
[2018-09-28] MEDS: Loratadine 10 MG TAB PO SCH (08:38)
[2018-09-28] MEDS: Cyanocobalamin (Vitamin B-12) 1,000 MCG TAB PO SCH (08:38)
[2018-09-28] MEDS: Allopurinol 100 MG TAB PO SCH (08:38)
--- NOTE | 2018-09-28 11:15 | ULT ---
RENAL ULTRASOUND: Date: 09/28/18 COMPARISON: 01/23/2012. HISTORY: Acute kidney injury, history of renal cysts. TECHNIQUE: Multiplanar grayscale sonographic imaging of the kidneys and urinary bladder obtained. FINDINGS: Right kidney measures 14.2 x 7.2 x 8.4 cm and left kidney measures 12.1 x 6.8 x 5.4 cm. Detailed assessment of bilateral kidneys is limited on the basis of body habitus. There are numerous bilateral renal cysts. A CT examination of the abdomen/pelvis performed 09/26/2018 demonstrated multiple hyperdense lesions within the right kidney, above that suspected for simple cyst. On this ex amination, no definite solid renal mass is identified. Cysts within the right kidney measure up to 3.9 cm. Portions of both kidneys are obscured by bowel gas. Vague hypoechoic lesions within the left kidney n oted measuring up to 2.9 cm, suggesting multiple renal cysts. Urinary bladder appears grossly unremarkable. IMPRESSION: Limited assessment of both kidneys demonstrating bilateral cysts. No definite solid renal mass. Given the appearance on recent CT and the limited nature of this examination, close follow-up renal ultrasound suggested. However, if the patient is able, definitive characterization with CT of the abd omen with and without contrast could be performed. Transcribed Date/Time: 09/28/2018 11:58 AM
[2018-09-28 16:10] LABS: Kappa/Lambda Ratio Comment: (2.04-10.37)
[2018-09-28] MEDS: Potassium Chloride 20 MEQ TAB PO SCH (17:23)
[2018-09-28] MEDS: Sodium Chloride 0.45% 1,000 ML IV SCH (17:30)
[2018-09-28] MEDS ORDERED: Benzonatate 100 MG CAP PO SCH (18:15)
--- NOTE | 2018-09-28 19:17 | PDOC.PN ---
- Subjective Encounter Start Date: 09/28/18 Encounter Start Time: 08:00 Pt seen for followup re; renal mass. Pt denies chest pain, shortness of breath , fevers or chills. - Objective Resuscitation Status - Order Detail: 09/23/18 14:32 Resuscitation Status Routine Resuscitation Status: FULL: Full Resuscitation MAR Reviewed: Yes Vital Signs & Weight: Vital Signs (12 hours) Temp Pulse Pulse Pulse Resp BP BP 09/28/18 16:00 98.1 F 72 18 09/28/18 14:00 79 76 158/71 H 151/72 H 09/28/18 11:41 97.9 F 65 18 09/28/18 08:00 09/28/18 07:55 98.1 F 72 18 BP BP Pulse Ox 09/28/18 16:00 155/72 H 98 09/28/18 14:00 09/28/18 11:41 137/68 97 09/28/18 08:00 96 09/28/18 07:55 138/67 96 Weight Weight 248 lb 4.8 oz I&O: 09/27/18 09/28/18 09/29/18 06:59 06:59 06:59 Intake Total 3660 3750 2560 Output Total 1425 2320 1150 Balance 2235 1430 1410 Result Diagrams: 09/28/18 05:08 09/28/18 05:08 EKG Reviewed by me: Yes (Tele: NSR) Phys Exam - Physical Examination Obese HEENT: moist MMs Neck: supple Respiratory: clear to auscultation bilateral Cardiovascular: RRR Gastrointestinal: soft Neurological: moves all 4 limbs Psychiatric: normal affect Dx/Plan (1) Renal mass, right Code(s): N28.89 - OTHER SPECIFIED DISORDERS OF KIDNEY AND URETER Status: Acute Comment: deciding re: surgical vs conservative treatments. (2) CAD (coronary artery disease) Code(s): I25.10 - ATHSCL HEART DISEASE OF [place] CORONARY ARTERY W/O ANG PCTRS Status: Chronic Comment: stable (3) Dyslipidemia Code(s): E78.5 - HYPERLIPIDEMIA, UNSPECIFIED Status: Chronic Comment: continue lipitor (4) HTN (hypertension) Code(s): I10 - ESSENTIAL (PRIMARY) HYPERTENSION Status: Chronic Comment: monitor vital signs and titrate antihypertensives as needed (5) Hypercalcemia Code(s): E83.52 - HYPERCALCEMIA Status: Resolved - Plan * . consult nephrology to help guide decisions re treatment of renal mass. Check renal US Review of Systems - Review of Systems Cardiovascular: negative: chest pain, palpitations, orthopnea, paroxysmal nocturnal dyspnea, edema, light headedness Gastrointestinal: negative: Nausea, Vomiting, Abdominal Pain, Diarrhea, Constipation, Melena, Hematochezia - Medications/Allergies Allergies/Adverse Reactions: Allergies Allergy/AdvReac Type Severity Reaction Status Date / Time No Known Allergies Allergy Verified 09/23/18 15:24 Medications: Current Medications Acetaminophen (Tylenol) 650 mg PO Q6H PRN PRN Reason: Headache/Fever or Pain Last Admin: 09/27/18 20:51 Dose: 650 mg Hydrocodone Bitart/Acetaminophen ([place] 5/325) 2 tab PO Q4HR PRN PRN Reason: Severe Pain (7-10) Last Admin: 09/24/18 18:19 Dose: 2 tab Hydrocodone Bitart/Acetaminophen ([place] 5/325) 1 tab PO Q4HR PRN PRN Reason: Moderate Pain (4-6) Last Admin: 09/25/18 09:55 Dose: 1 tab Allopurinol (Zyloprim) 100 mg PO DAILY [facility] Last Admin: 09/28/18 08:38 Dose: 100 mg Aspirin (Aspirin Chewable) 81 mg PO QPM [facility] Last Admin: 09/27/18 20:51 Dose: 81 mg Benzonatate (Tessalon) 100 mg PO TID [facility] Benzonatate (Tessalon) 100 mg PO NOW [facility] Stop: 09/28/18 20:15 Clopidogrel Bisulfate (Plavix) 37.5 mg PO QPM [facility] Last Admin: 09/27/18 20:52 Dose: 37.5 mg Cyanocobalamin (Vitamin B-12) 1,000 mcg PO DAILY [facility] Last Admin: 09/28/18 08:38 Dose: 1,000 mcg Docusate Sodium (Colace) 100 mg PO DAILY [facility] Last Admin: 09/28/18 08:38 Dose: 100 mg Heparin Sodium (Porcine) (Heparin) 5,000 units SC BID [facility] Last Admin: 09/28/18 08:38 Dose: 5,000 units Hydralazine HCl (Apresoline) 10 mg SLOW IVP Q8H PRN PRN Reason: Blood Pressure Piperacillin Sod/Tazobactam (Sod 3.375 gm/ Sodium Chloride) 100 mls @ 200 mls/ hr IVPB Q6HR [facility] Last Admin: 09/28/18 17:23 Dose: 100 mls Sodium Chloride (1/2 Normal Saline) 1,000 mls @ 125 mls/hr IV .Q8H [facility] Last Admin: 09/28/18 17:30 Dose: Not Given Loratadine (Claritin) 10 mg PO DAILY [facility] Last Admin: 09/28/18 08:38 Dose: 10 mg Magnesium Oxide (Magnesium Oxide) 250 mg PO HS [facility] Last Admin: 09/27/18 20:51 Dose: 250 mg Metoprolol Tartrate (Lopressor) 25 mg PO DAILY [facility] Last Admin: 09/28/18 08:38 Dose: 25 mg Potassium Chloride (K-Dur) 40 meq PO 1800 [facility] Last Admin: 09/28/18 17:23 Dose: 40 meq Sodium Chloride (Flush - Normal Saline) 10 ml IVF Q12HR [facility] Last Admin: 09/28/18 08:50 Dose: 10 ml Sodium Chloride (Flush - Normal Saline) 10 ml IVF PRN PRN PRN Reason: Saline Flush
[2018-09-28] MEDS: Acetaminophen 325 MG TAB PO PRN (20:13)
[2018-09-28] MEDS: Magnesium Oxide 250 MG TAB PO SCH (20:13)
[2018-09-28] MEDS: Clopidogrel Bisulfate 75 MG TAB PO SCH (20:13)
[2018-09-28] MEDS: Aspirin Chewable 81 MG TAB PO SCH (20:13)
[2018-09-28] MEDS: Benzonatate 100 MG CAP PO SCH (20:15)
--- NOTE | 2018-09-29 00:03 | CON ---
DATE OF CONSULTATION: HISTORY OF PRESENT ILLNESS: Mr. Perez is an 83-year-old white male, who was admitted on September 23, 2018 for generalized weakness. At that time, he was found to be dehydrated/acute kidney injury with hypercalcemia. He was treated for the hypercalcemia with IV hydration and was said to have been given zoledronic acid. Hypercalcemia over the last several days has slowly been improving. Of interest, this patient has had a bone scan done back on July, which showed an abnormal uptake secondary to a non left healing fracture and a fracture of T10. With this hospitalization, there was an issue whether this patient may have underlying renal cancer. A CT scan of the abdomen and pelvis was done showing bilateral cysts and highly suspicious malignant process of the inferior pole of the right kidney. It was also noted he had some lucency on the right posterior 7th rib. This was also found on the right 12th rib. We are now being consulted for his acute kidney injury and the issues whether the patient will be dialysis free if the patient undergoes a right nephrectomy. He has also an acute kidney injury that remains essentially unimproved. His baseline creatinine has ranged from 1.35 to 1.9. Prior to this hospitalization, the patient was taking spironolactone and furosemide. Those two diuretics are currently on hold. The patient is here receiving hydration. He voices no new complaints. REVIEW OF SYSTEMS: No chest pain. No shortness of breath. No nausea. No vomiting. No diarrhea. Occasional rib pain on exertion. No constipation. No gross hematuria. No dysuria. No abdominal pain. No fever or chills. MEDICATIONS: Currently, he is on 1. [place] 5/325 q.4 p.r.n. 2. Zyloprim 100 mg daily. 3. Plavix 37.5 mg q.p.m. 4. Aspirin 81 mg tablet once a day. 5. Docusate 100 mg daily. 6. Heparin 5000 units subcu b.i.d. 7. Claritin 10 mg daily. 8. Magnesium oxide 250 mg at bedtime. 9. Metoprolol tartrate 25 mg once a day. 10. Zosyn 3.375 g IV q.6. 11. K-Dur 40 mEq once a day. 12. Half normal saline at 75 mL/hour. PAST MEDICAL HISTORY: 1. History of CHF. 2. 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 3. BPH. 4. Obstructive sleep apnea. 5. Peripheral neuropathy. 6. DJD. 7. Gout. 8. Hypertension. 9. Essential tremors. 10. Coronary artery disease. PAST SURGICAL HISTORY: Status post TURP, status post rotator cuff surgery, right shoulder, status post cardiac cath, status post CABG, status post colonoscopy, status post back surgery. SOCIAL HISTORY: The patient lives with his daughter. He is a , 2 children. 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 Education; high school, some college courses. Originally from [facility], but lives in [place]. Smoked for 20 years, 1 pack a day. Alcohol, rarely. No blood transfusion. No drug abuse. FAMILY HISTORY: No family history of ESRD. ALLERGIES: NONE. TRAUMA: None. IMMUNIZATION: Up-to-date. HOSPITALIZATIONS: Please see past medical history. PHYSICAL EXAMINATION: VITAL SIGNS: Blood pressure 155/72, heart rate 72, respiratory rate 18, temperature 98.1, and pulse ox 98%. GENERAL: Noted to be awake, alert, comfortable, not in distress. SKIN: Adequate turgor. HEENT: He has pinkish conjunctivae. Anicteric sclerae. No neck mass. No carotid bruits. No JVD. CHEST: No deformities. LUNGS: Clear breath sounds. No wheezing. No crackles. HEART: Normal sinus rhythm. No murmur. No gallops. No rubs. ABDOMEN: Globular, soft, nontender. No masses. EXTREMITIES: No edema. No deformities. LABORATORY DATA: Laboratories of September 28, 2018, sodium 139, potassium 4.1, chloride 111, carbon dioxide 22, BUN 24, creatinine 2.02, glucose 76, calcium 9.4. Further review of his serum creatinine shows the following: September 27, 2018, 2.16; September 26, 2018, creatinine 2.2, September 25, 2018, creatinine 2.14. Serum calcium noted at 9.4. On September 27, 2018, 10.5. September 25, 2018 calcium was 12. September 25, 2018, calcium was 12.7. Chest x-ray, no evidence of CHF. CT scan of the abdomen and pelvis, no contrast, showed bilateral cysts, suspicious malignant process of inferior pole of the right kidney, findings of lucency in the right posterior 7th rib and right 12th rib. Renal ultrasound of September 28, 2018, shows multiple cysts, but no definite solid renal mass was seen. ASSESSMENT AND PLAN: 1. Acute kidney injury on top of his chronic renal failure, I suspect a prerenal component. Agree with empiric volume repletion. I would suggest we increase the IV fluid from 75 mL an hour to 125 mL an hour. There is no indication for any dialytic intervention. He has underlying chronic renal failure secondary to his presumed hypertensive nephropathy. Of interest, renal imaging showed multiple renal cysts. The patient has no history of end-stage renal disease. I doubt he has autosomal dominant polycystic kidney disease. It is possible he may simply have acquired cystic renal disease. 2. Hypercalcemia, improved with conservative management. The patient was said to have receiving zoledronic acid as well as IV hydration. PTH is currently pending. I would suggest we also do a repeat PTH to see if it is high or low. 3. ? of inferior pole right renal mass. We may need eventually to do an imaging with and without contrast. At the present time, we could not pursue this due to the elevated creatinine. We will attempt to get the creatinine to baseline and if this improves to near baseline, we could probably consider doing a CT scan of the abdomen and pelvis with and without contrast. As to the question whether the patient will be dialysis free after a right nephrectomy, will have to be determined by doing a split GFR nuclear medicine study. We will try to do this once the patient's renal function is felt to be stable and at baseline. Overall prognosis remains guarded with this patient. Overall, agree with current management. Job ID: [id number]
[2018-09-29] MEDS: Sodium Chloride 0.45% 1,000 ML IV SCH ×4 (00:55→21:57)
[2018-09-29] MEDS: Piperacillin/Tazobactam 3.375 GM in Sodium Chloride 0.9% 100 ML IVPB SCH ×4 (00:55→17:14)
[2018-09-29 08:41] LABS: #Eosinphils 0.3 thou/uL (0.0-0.7); #Lymphocytes 1.2 thou/uL (1.20-3.40); #Monocytes 0.2 thou/uL (0.11-0.59); #Neutrophils 1.9 thou/uL (1.40-6.50); %Basophils 0.4 % (0.0-1.0); %Eosinophils 8.8 % (0.0-10.0); %Lymphocytes 33.7 % (21.0-51.0); %Monocytes 5.9 % (0.0-10.0); %Neutrophils 51.3 % (42.0-75.0); Hemoglobin 11.2 g/dL (14.0-18.0); Mean Corpuscular HGB CONC 35.1 g/dL (32.0-36.0); Mean Corpuscular Hemoglobin 38.4 pg (27.0-31.0); Platelet Count 120 thou/uL (130-400); RBC Distribution Width 12.2 % (11.5-14.5); Red Blood Cell (RBC) Count 2.91 mill/uL (4.70-6.10); White Blood Cell (WBC) Count 3.7 thou/uL (4.8-10.8)
[2018-09-29] MEDS: Allopurinol 100 MG TAB PO SCH (08:45)
[2018-09-29] MEDS: Heparin 5,000 UNITS/ML VIAL SC SCH ×2 (08:46→19:44)
[2018-09-29] MEDS: Loratadine 10 MG TAB PO SCH (08:46)
[2018-09-29] MEDS: Docusate 100 MG CAP PO SCH (08:46)
[2018-09-29] MEDS: Benzonatate 100 MG CAP PO SCH ×3 (08:46→19:43)
[2018-09-29] MEDS: Cyanocobalamin (Vitamin B-12) 1,000 MCG TAB PO SCH (08:46)
[2018-09-29] MEDS: Metoprolol Tartrate 25 MG TAB PO SCH (08:46)
[2018-09-29 09:04] LABS: Anion Gap 12 mmol/L (10-20); BUN (Urea Nitrogen) 20 mg/dL (8.4-25.7); Calc. Creatinine Clearance 44 mL/min (70-130); Calcium 9.2 mg/dL (7.8-10.44); Carbon Dioxide 22 mmol/L (23-31); Chloride 110 mmol/L (98-107); Estimated GFR-MDRD 31; Glucose 94 mg/dL (83-110); Sodium 140 mmol/L (136-145)
--- NOTE | 2018-09-29 09:20 | PRG ---
DATE OF SERVICE: SUBJECTIVE: Mr. Perez is an 83-year-old white male who was admitted for generalized malaise. During the initial workup, he was found to be hypercalcemic. In addition, a CAT scan of the abdomen and pelvis showed a possible renal mass on the one of the kidneys. He has also ? of a lytic lesion in one of the ribs. I did speak with Dr. Haji, the hospitalist, and a repeat bone scan will be done. We are currently following this patient also for his acute kidney injury. His hypercalcemia has much improved. OBJECTIVE: VITAL SIGNS: Blood pressure is 139/75, heart rate 61, respiratory rate 18, temperature 96.8, and pulse ox 98%. GENERAL: Awake, alert, comfortable, not in distress. SKIN: Adequate turgor. HEENT: Pinkish conjunctivae. Anicteric sclerae. NECK: No neck mass. No carotid bruits. No JVD. CHEST: No deformities. LUNGS: Clear breath sounds. No wheezing. No crackles. HEART: Normal sinus rhythm. No murmur. No gallops. No rubs. ABDOMEN: Globular, soft, nontender. No masses. EXTREMITIES: No edema. No deformities. MEDICATIONS: Medications of September 29, 2018, were reviewed. LABORATORY DATA: Laboratories of September 28, 2018, white count 3.5 and hemoglobin 10.3. Sodium 139, potassium is 4.1, chloride 111, carbon dioxide 22, BUN 24, creatinine 2.02, and calcium is 9.4. Intact PTH is 24. PTH-related peptide currently pending. SPEP and UPEP currently not available. ASSESSMENT AND PLAN: 1. Hypercalcemia - resolved. Please note, his PTH was not elevated. PTH-related peptide has been ordered and is currently not available. The concern is that this patient may have metastatic lesions. 2. Lytic rib lesions - the patient will be scheduled for bone scan. 3. Renal mass - Urology is following. If the patient has metastatic bone lesions, the approach might be different regarding to the renal mass. It is possible a nephrectomy may not be indicated at that time. 4. Acute kidney injury on top of his chronic renal failure. Continue supportive care. Continuing IV hydration. No indication for any dialytic intervention. 5. Overall prognosis remains guarded. Job ID: [id number]
[2018-09-29 14:33] LABS: Reference Lab Name LABCORP
[2018-09-29] MEDS: Potassium Chloride 20 MEQ TAB PO SCH (17:14)
--- NOTE | 2018-09-29 17:36 | PDOC.PN ---
- Subjective Encounter Start Date: 09/29/18 Encounter Start Time: 08:20 Pt seen for followup re: renal mass. Says he feels better. - Objective Resuscitation Status - Order Detail: 09/23/18 14:32 Resuscitation Status Routine Resuscitation Status: FULL: Full Resuscitation MAR Reviewed: Yes Vital Signs & Weight: Vital Signs (12 hours) Temp Pulse Pulse Pulse Resp BP BP 09/29/18 15:32 97.6 F 74 18 09/29/18 14:25 78 79 135/71 152/70 H 09/29/18 11:56 97.8 F 63 18 09/29/18 08:00 96.9 F L 70 18 BP BP Pulse Ox 09/29/18 15:32 145/69 H 95 09/29/18 14:25 09/29/18 11:56 126/65 09/29/18 08:00 138/63 94 L Weight Weight 248 lb 4.8 oz I&O: 09/28/18 09/29/18 09/30/18 06:59 06:59 06:59 Intake Total 3750 4310 2420 Output Total 2320 1760 1280 Balance 1430 2550 1140 Result Diagrams: 09/29/18 08:27 09/29/18 08:27 EKG Reviewed by me: Yes (Tele: NSR) Phys Exam - Physical Examination Obese HEENT: sclera anicteric Neck: no nodes Respiratory: clear to auscultation bilateral Cardiovascular: RRR Gastrointestinal: positive bowel sounds Neurological: moves all 4 limbs Psychiatric: normal affect Dx/Plan (1) Renal mass, right Code(s): N28.89 - OTHER SPECIFIED DISORDERS OF KIDNEY AND URETER Status: Acute Comment: Will check bone scan to r/o mets. prior bone scan found L sided lesions, ? from rib fractures. CT scan shows a couple of right sided lesions. (2) CAD (coronary artery disease) Code(s): I25.10 - ATHSCL HEART DISEASE OF [place] CORONARY ARTERY W/O ANG PCTRS Status: Chronic Comment: stable (3) Dyslipidemia Code(s): E78.5 - HYPERLIPIDEMIA, UNSPECIFIED Status: Chronic Comment: will continue lipitor (4) HTN (hypertension) Code(s): I10 - ESSENTIAL (PRIMARY) HYPERTENSION Status: Chronic Comment: reasonable control (5) Hypercalcemia Code(s): E83.52 - HYPERCALCEMIA Status: Resolved - Plan * . Review of Systems - Review of Systems Constitutional: negative: fever, chills, sweats, weakness, malaise Cardiovascular: negative: chest pain, palpitations, orthopnea, paroxysmal nocturnal dyspnea, edema, light headedness - Medications/Allergies Allergies/Adverse Reactions: Allergies Allergy/AdvReac Type Severity Reaction Status Date / Time No Known Allergies Allergy Verified 09/23/18 15:24 Medications: Current Medications Acetaminophen (Tylenol) 650 mg PO Q6H PRN PRN Reason: Headache/Fever or Pain Last Admin: 09/28/18 20:13 Dose: 650 mg Hydrocodone Bitart/Acetaminophen ([place] 5/325) 2 tab PO Q4HR PRN PRN Reason: Severe Pain (7-10) Last Admin: 09/24/18 18:19 Dose: 2 tab Hydrocodone Bitart/Acetaminophen ([place] 5/325) 1 tab PO Q4HR PRN PRN Reason: Moderate Pain (4-6) Last Admin: 09/25/18 09:55 Dose: 1 tab Allopurinol (Zyloprim) 100 mg PO DAILY [facility] Last Admin: 09/29/18 08:45 Dose: 100 mg Aspirin (Aspirin Chewable) 81 mg PO QPM [facility] Last Admin: 09/28/18 20:13 Dose: 81 mg Benzonatate (Tessalon) 100 mg PO TID [facility] Last Admin: 09/29/18 15:14 Dose: 100 mg Clopidogrel Bisulfate (Plavix) 37.5 mg PO QPM [facility] Last Admin: 09/28/18 20:13 Dose: 37.5 mg Cyanocobalamin (Vitamin B-12) 1,000 mcg PO DAILY [facility] Last Admin: 09/29/18 08:46 Dose: 1,000 mcg Docusate Sodium (Colace) 100 mg PO DAILY [facility] Last Admin: 09/29/18 08:46 Dose: 100 mg Heparin Sodium (Porcine) (Heparin) 5,000 units SC BID [facility] Last Admin: 09/29/18 08:46 Dose: 5,000 units Hydralazine HCl (Apresoline) 10 mg SLOW IVP Q8H PRN PRN Reason: Blood Pressure Piperacillin Sod/Tazobactam (Sod 3.375 gm/ Sodium Chloride) 100 mls @ 200 mls/ hr IVPB Q6HR [facility] Last Admin: 09/29/18 17:14 Dose: 100 mls Sodium Chloride (1/2 Normal Saline) 1,000 mls @ 125 mls/hr IV .Q8H [facility] Last Admin: 09/29/18 16:27 Dose: Not Given Loratadine (Claritin) 10 mg PO DAILY [facility] Last Admin: 09/29/18 08:46 Dose: 10 mg Magnesium Oxide (Magnesium Oxide) 250 mg PO HS [facility] Last Admin: 09/28/18 20:13 Dose: 250 mg Metoprolol Tartrate (Lopressor) 25 mg PO DAILY [facility] Last Admin: 09/29/18 08:46 Dose: 25 mg Potassium Chloride (K-Dur) 40 meq PO 1800 [facility] Last Admin: 09/29/18 17:14 Dose: 40 meq Sodium Chloride (Flush - Normal Saline) 10 ml IVF Q12HR [facility] Last Admin: 09/29/18 08:46 Dose: 10 ml Sodium Chloride (Flush - Normal Saline) 10 ml IVF PRN PRN PRN Reason: Saline Flush
[2018-09-29 18:08] LABS: A/G Ratio 1.3 (0.7-1.7); Albumin 3.2 g/dL (2.9-4.4); Alpha 1 0.2 g/dL (0.0-0.4); Alpha 2 0.9 g/dL (0.4-1.0); Beta 0.6 g/dL (0.7-1.3); Gamma 0.7 g/dL (0.4-1.8); Globulin, Total 2.4 g/dL (2.2-3.9); M-Spike 0.2 g/dL (Not Observed)
[2018-09-29] MEDS: Clopidogrel Bisulfate 75 MG TAB PO SCH (19:43)
[2018-09-29] MEDS: Magnesium Oxide 250 MG TAB PO SCH (19:43)
[2018-09-29] MEDS: Acetaminophen 325 MG TAB PO PRN (19:43)
[2018-09-29] MEDS: Aspirin Chewable 81 MG TAB PO SCH (19:44)
[2018-09-30] MEDS: Piperacillin/Tazobactam 3.375 GM in Sodium Chloride 0.9% 100 ML IVPB SCH ×3 (00:19→14:01)
[2018-09-30 07:05] LABS: Anion Gap 11 mmol/L (10-20); BUN (Urea Nitrogen) 17 mg/dL (8.4-25.7); Calc. Creatinine Clearance 49 mL/min (70-130); Calcium 8.5 mg/dL (7.8-10.44); Carbon Dioxide 21 mmol/L (23-31); Chloride 113 mmol/L (98-107); Estimated GFR-MDRD 35; Glucose 91 mg/dL (83-110); Potassium 3.6 mmol/L (3.5-5.1); Sodium 141 mmol/L (136-145)
[2018-09-30] MEDS: Docusate 100 MG CAP PO SCH (09:03)
[2018-09-30] MEDS: Cyanocobalamin (Vitamin B-12) 1,000 MCG TAB PO SCH (09:03)
[2018-09-30] MEDS: Loratadine 10 MG TAB PO SCH (09:03)
[2018-09-30] MEDS: Metoprolol Tartrate 25 MG TAB PO SCH (09:03)
[2018-09-30] MEDS: Benzonatate 100 MG CAP PO SCH ×3 (09:03→20:56)
[2018-09-30] MEDS: Allopurinol 100 MG TAB PO SCH (09:03)
[2018-09-30] MEDS: Sodium Chloride 0.45% 1,000 ML IV SCH (09:15)
[2018-09-30] MEDS: Heparin 5,000 UNITS/ML VIAL SC SCH ×3 (09:18→20:56)
--- NOTE | 2018-09-30 09:47 | PRG ---
DATE OF SERVICE: 09/30/2018 SERVICE: Renal Medicine. SUBJECTIVE: Mr. Perez is an 83-year-old white male, who is being seen by the Renal Service for his acute kidney injury on top of his chronic renal failure. He was also noted to be hypercalcemic. Empiric volume repletion was done and zoledronic acid was given with improvement of the serum calcium. Calcium is now normal. The initial PTH was also low and in addition, the PTH related peptide came back less than 2-within normal range. He was also found to have a suspicious right renal mass. Currently, Urology is evaluating this patient. No other complaints today. No chest pain or shortness of breath. On CT scan, he also had some abnormalities noted with lucency of the right posterior 7th rib actual image. A repeat bone scan will be done. No other complaints. No chest pain or shortness of breath. OBJECTIVE: VITAL SIGNS: Blood pressure 154/73, heart rate 72, respiratory rate 14, temperature 98.2, pulse ox 96%. GENERAL: Awake, sitting comfortable, not in distress. SKIN: Adequate turgor. HEENT: He has pinkish conjunctivae. Anicteric sclerae. NECK: No neck mass. No carotid bruits. No JVD. CHEST: No deformities. LUNGS: Clear breath sounds. HEART: Normal sinus rhythm. No murmurs, no gallops, no rubs. ABDOMEN: Globular, soft, nontender. No masses. EXTREMITIES: No edema. No deformities. MEDICATIONS: Medications of September 30, 2018, reviewed. LABORATORY DATA: Laboratories of September 30, 2018, sodium 141, potassium 3.6, chloride 113, carbon dioxide 21, BUN 17, creatinine 1.87, glucose 91, calcium 8.5. ASSESSMENT AND PLAN: 1. Acute kidney injury on top of his chronic renal failure, superimposed prerenal azotemia. Continue IV hydration. Improving creatinine. Most recent creatinine now is 1.87. There is no indication for any dialytic intervention with this patient. 2. Hypercalcemia, resolved with zoledronic acid as well as IV hydration. Workup is still currently pending. PTH and PTH related peptide were said to be normal. 3. Right renal mass-Urology is evaluating. Consideration for a possible nephrectomy? Once the patient's renal function has stabilized, we will do a split GFR study with this patient. We are also awaiting the results of the bone scan. Overall, agree with current management. We will recheck basic metabolic profile and CBC in a.m. Job ID: [id number]
--- NOTE | 2018-09-30 10:30 | RAD ---
Skull 4 views HISTORY: Lytic lesions. Evaluate for myeloma. FINDINGS: On the lateral left view, an oval fairly well-circumscribed the lies just above the level o f the sella, at the expected location of the temporal bone. The frontal view also shows subtle oval lucency over the temporal bone is unremarkable. No other lytic lesions are apparent. IMPRESSION: Lucency overlying the left temporal bone, worrisome for a lytic lesion. Please correlate clinically with laboratory values regarding the possibility of myelomatous disease. For further imaging, CT of the torso may be appropriate to evaluate for a primary neoplasm or other bone abnormal ities.
--- NOTE | 2018-09-30 12:43 | PDOC.PN ---
- Subjective Encounter Start Date: 09/30/18 Encounter Start Time: 10:45 Subjective: feels better, no sob -: daughter and at bedside - Objective Resuscitation Status - Order Detail: 09/23/18 14:32 Resuscitation Status Routine Resuscitation Status: FULL: Full Resuscitation MAR Reviewed: Yes Vital Signs & Weight: Vital Signs (12 hours) Temp Pulse Resp BP Pulse Ox 09/30/18 11:20 98.3 F 68 16 152/71 H 96 09/30/18 07:35 98.2 F 70 14 154/73 H 96 09/30/18 04:00 98.2 F 96 13 145/76 H 96 Weight Weight 249 lb 1.6 oz I&O: 09/29/18 09/30/18 10/01/18 06:59 06:59 06:59 Intake Total 4310 4170 Output Total 1760 2180 Balance 2550 1989 Result Diagrams: 09/29/18 08:27 09/30/18 05:46 Phys Exam - Physical Examination HEENT: PERRLA, moist MMs Neck: no JVD, supple Respiratory: no wheezing, no rales Cardiovascular: RRR, no significant murmur Gastrointestinal: soft, non-tender, positive bowel sounds Musculoskeletal: no edema, pulses present Neurological: non-focal, moves all 4 limbs Psychiatric: normal affect, A&O x 3 Dx/Plan (1) Multiple myeloma Code(s): C90.00 - MULTIPLE MYELOMA NOT HAVING ACHIEVED REMISSION Status: Suspected (2) KERI (acute kidney injury) Code(s): N17.9 - ACUTE KIDNEY FAILURE, UNSPECIFIED Status: Acute Comment: resolving (3) Anemia Code(s): D64.9 - ANEMIA, UNSPECIFIED Status: Acute Qualifiers: Anemia type: unspecified type Qualified Code(s): D64.9 - Anemia, unspecified (4) Pancytopenia Code(s): D61.818 - OTHER PANCYTOPENIA Status: Chronic Comment: Appears chronic, potential metastatic process given multitude of metabolic/lab derangements (5) Hypercalcemia Code(s): E83.52 - HYPERCALCEMIA Status: Resolved (6) CAD (coronary artery disease) Code(s): I25.10 - ATHSCL HEART DISEASE OF [place] CORONARY ARTERY W/O ANG PCTRS Status: Chronic Qualifiers: Coronary Disease-Associated Artery/Lesion type: bypass graft [place] vs. transplanted heart: [place] heart Associated angina: without angina Qualified Code(s): I25.810 - Atherosclerosis of coronary artery bypass graft(s) without angina pectoris Comment: stable (7) Dyslipidemia Code(s): E78.5 - HYPERLIPIDEMIA, UNSPECIFIED Status: Chronic Comment: will continue lipitor (8) Generalized weakness Code(s): R53.1 - WEAKNESS Status: Chronic Comment: Consider HH with PT vs SNF (9) Gout Code(s): M10.9 - GOUT, UNSPECIFIED Status: Chronic Qualifiers: Gout site: unspecified site Chronicity: chronic Presence of tophus: without tophus Comment: stable (10) HTN (hypertension) Code(s): I10 - ESSENTIAL (PRIMARY) HYPERTENSION Status: Chronic Qualifiers: Hypertension type: essential hypertension Qualified Code(s): I10 - Essential (primary) hypertension Comment: reasonable control - Plan has elevated kappa light chain, 1 large lytic lesion over skull, will get -: -onc opinion, if needed will obtain skeletal survey/bm bx -: has bone scan scheduled today for right rib lesions, await results -: dc iv fluids, continue asp, plavix, lopressor -: intact pTH is normal, await pTH related peptide levels * . dc zosyn, colony count <5k in urine. Hemostable d/w family and patient at bedside. Likely dc plan in am if ok with onc and . Creatinine stable around 2 Review of Systems - Medications/Allergies Allergies/Adverse Reactions: Allergies Allergy/AdvReac Type Severity Reaction Status Date / Time No Known Allergies Allergy Verified 09/23/18 15:24 Medications: Current Medications Acetaminophen (Tylenol) 650 mg PO Q6H PRN PRN Reason: Headache/Fever or Pain Last Admin: 09/29/18 19:43 Dose: 650 mg Hydrocodone Bitart/Acetaminophen ([place] 5/325) 2 tab PO Q4HR PRN PRN Reason: Severe Pain (7-10) Last Admin: 09/24/18 18:19 Dose: 2 tab Hydrocodone Bitart/Acetaminophen ([place] 5/325) 1 tab PO Q4HR PRN PRN Reason: Moderate Pain (4-6) Last Admin: 09/25/18 09:55 Dose: 1 tab Allopurinol (Zyloprim) 100 mg PO DAILY [facility] Last Admin: 09/30/18 09:03 Dose: 100 mg Aspirin (Aspirin Chewable) 81 mg PO QPM [facility] Last Admin: 09/29/18 19:44 Dose: 81 mg Benzonatate (Tessalon) 100 mg PO TID [facility] Last Admin: 09/30/18 09:03 Dose: 100 mg Clopidogrel Bisulfate (Plavix) 37.5 mg PO QPM [facility] Last Admin: 09/29/18 19:43 Dose: 37.5 mg Cyanocobalamin (Vitamin B-12) 1,000 mcg PO DAILY [facility] Last Admin: 09/30/18 09:03 Dose: 1,000 mcg Docusate Sodium (Colace) 100 mg PO DAILY [facility] Last Admin: 09/30/18 09:03 Dose: 100 mg Heparin Sodium (Porcine) (Heparin) 5,000 units SC BID [facility] Last Admin: 09/30/18 10:39 Dose: 5,000 units Hydralazine HCl (Apresoline) 10 mg SLOW IVP Q8H PRN PRN Reason: Blood Pressure Loratadine (Claritin) 10 mg PO DAILY [facility] Last Admin: 09/30/18 09:03 Dose: 10 mg Magnesium Oxide (Magnesium Oxide) 250 mg PO HS [facility] Last Admin: 09/29/18 19:43 Dose: 250 mg Metoprolol Tartrate (Lopressor) 25 mg PO DAILY [facility] Last Admin: 09/30/18 09:03 Dose: 25 mg Potassium Chloride (K-Dur) 40 meq PO 1800 [facility] Last Admin: 09/29/18 17:14 Dose: 40 meq Sodium Chloride (Flush - Normal Saline) 10 ml IVF Q12HR [facility] Last Admin: 09/30/18 09:16 Dose: Not Given Sodium Chloride (Flush - Normal Saline) 10 ml IVF PRN PRN PRN Reason: Saline Flush
--- NOTE | 2018-09-30 13:15 | NM ---
WHOLE BODY BONE SCAN: HISTORY: Evaluate for bone metastasis RADIOPHARMACEUTICAL: 30 mCi technetium 99m-MDP injected intravenously COMPARISON:08/18/2018 CORRELATION: CT brain 09/11/2017 FINDINGS: Degenerative changes and healing left-sided rib fractures are again seen. Increased uptake in the rig ht frontal bone corresponding to hyperostosis on the CT scan of brain dated 09/11/2017 is again seen. No other abnormal areas of tracer localization is seen in the skeleton to suggest metastatic disease. Tracer excretion through the kidneys is within normal limits. IMPRESSION: No scintigraphic evidence of osseous metastatic disease.
[2018-09-30 13:16] LABS: Albumin-Ur 4.3 % (.); Alpha 1 - Ur 0.2 % (.); Alpha 2 - Ur 0.6 % (.); Beta-Ur 13.3 % (.); Gamma-Ur 81.6 % (.); Protein, Urine 437.5 mg/dL (Not Estab.)
--- NOTE | 2018-09-30 14:10 | RAD ---
EXAM: LUMBAR SPINE THREE VIEWS: 09/30/18 HISTORY: Rule out lytic lesions, questionable myeloma. Extensive postoperative changes are noted with pedicle screws placed from L1 through S1. Severe disc osteophytosis and facet arthrosis. No identifiable focal circumscribed areas of lytic bone lesions. IMPRESSION: Extensive postoperative changes from L1 through S1. Severe spondylosis. No identifiable circumscribed lytic bone lesions. If that remains a strong clinical concern in regards to the lumbar spine, follow -up MRI study might be of benefit. POS: SAMANTHA
--- NOTE | 2018-09-30 14:12 | RAD ---
THORACIC SPINE THREE VIEWS: 09/30/18 HISTORY: Possible myeloma. Concern for lytic lesions. There is severe multilevel disc osteophytosis. Heterogeneous bone demineralization. Postop midline st ernotomy and coronary artery bypass changes overlie the thoracic spine on the AP view. There is promi nent left hemidiaphragm elevation, incompletely evaluated on this study. No discrete circumscribed christiane ne lesions. IMPRESSION: Bone demineralization with severe multilevel spondylosis. If there is strong clinical concern for myelomatous changes in the thoracic spine, follow-up MRI stud y should be considered. POS: SAMANTHA
[2018-09-30] MEDS: Potassium Chloride 20 MEQ TAB PO SCH (18:07)
[2018-09-30] MEDS: Acetaminophen 325 MG TAB PO PRN (20:55)
[2018-09-30] MEDS: Clopidogrel Bisulfate 75 MG TAB PO SCH (20:56)
[2018-09-30] MEDS: Magnesium Oxide 250 MG TAB PO SCH (20:56)
[2018-09-30] MEDS: Aspirin Chewable 81 MG TAB PO SCH (20:56)
[2018-10-01 04:51] LABS: #Eosinphils 0.3 thou/uL (0.0-0.7); #Lymphocytes 1.1 thou/uL (1.20-3.40); #Monocytes 0.2 thou/uL (0.11-0.59); #Neutrophils 1.9 thou/uL (1.40-6.50); %Basophils 0.6 % (0.0-1.0); %Eosinophils 8.5 % (0.0-10.0); %Lymphocytes 31.1 % (21.0-51.0); %Monocytes 6.5 % (0.0-10.0); %Neutrophils 53.2 % (42.0-75.0); Hemoglobin 9.7 g/dL (14.0-18.0); Mean Corpuscular Hemoglobin 37.4 pg (27.0-31.0); Mean Platelet Volume 7.7 fL (7.4-10.4); Platelet Count 104 thou/uL (130-400); RBC Distribution Width 12.3 % (11.5-14.5); Red Blood Cell (RBC) Count 2.59 mill/uL (4.70-6.10); White Blood Cell (WBC) Count 3.6 thou/uL (4.8-10.8)
[2018-10-01 05:06] LABS: Anion Gap 8 mmol/L (10-20); BUN (Urea Nitrogen) 15 mg/dL (8.4-25.7); Calc. Creatinine Clearance 52 mL/min (70-130); Calcium 8.6 mg/dL (7.8-10.44); Carbon Dioxide 23 mmol/L (23-31); Chloride 114 mmol/L (98-107); Estimated GFR-MDRD 37; Glucose 82 mg/dL (83-110); Sodium 141 mmol/L (136-145)
[2018-10-01] MEDS: Cyanocobalamin (Vitamin B-12) 1,000 MCG TAB PO SCH (08:57)
[2018-10-01] MEDS: Benzonatate 100 MG CAP PO SCH ×2 (08:57→14:36)
[2018-10-01] MEDS: Allopurinol 100 MG TAB PO SCH (08:57)
[2018-10-01] MEDS: Metoprolol Tartrate 25 MG TAB PO SCH (08:58)
[2018-10-01] MEDS: Loratadine 10 MG TAB PO SCH (08:58)
[2018-10-01] MEDS: Heparin 5,000 UNITS/ML VIAL SC SCH (08:58)
[2018-10-01] MEDS: Docusate 100 MG CAP PO SCH (08:58)
--- NOTE | 2018-10-01 10:07 | PRG ---
DATE OF SERVICE: 10/01/2018 SUBJECTIVE: Mr. Roland Perez is an 83-year-old white male, who was seen by the Renal Service for his acute kidney injury on top of his chronic renal failure. He had a superimposed prerenal azotemia. Renal function improved with IV hydration. His creatinine peaked at 2.2, is now currently at 1.7 with IV hydration. In addition, during the initial admission, he was noted to be hypercalcemic. He was given volume repletion for this. His calcium is much improved. He has also a skeletal survey which is essentially normal except for? of lucency on the temporal bone. His bone scan which was repeated yesterday was negative. He is PTH related peptide was also negative. Hematology consult will be obtained for further input regarding today's incidental finding of these? lucency in the temporal bone. He also was found to have a? of right renal mass. No other complaints today. The patient denies any chest pain or shortness of breath. OBJECTIVE: VITAL SIGNS: Blood pressure is 140/70, heart rate 74, respiratory rate 12, temperature 98.3, and pulse ox 95%. GENERAL: The patient is awake, alert, comfortable, not in distress, sitting. HEENT: He has pinkish conjunctivae. Anicteric sclerae. No neck mass. No carotid bruits. No JVD. CHEST: No deformities. LUNGS: Clear breath sounds. No wheezing. No crackles. HEART: Normal sinus rhythm. No murmur. No gallops or rubs. ABDOMEN: Globular, soft, nontender. No masses. EXTREMITIES: No edema. MEDICATIONS: Medications of October 01, 2018, was reviewed. LABORATORY DATA: Laboratories of October 01, 2018, white count 3.6, hemoglobin 9.7. October 01, 2018, sodium 141, potassium 4, chloride 114, carbon dioxide 23, BUN 15, creatinine 1.76, GFR 37 mL/minute, calcium 8.6, uric acid is 3.1. ASSESSMENT AND PLAN: 1. Acute kidney injury on top of his chronic renal failure, superimposed prerenal azotemia, much improved with volume repletion. Currently, IV fluid is off. No indication for any dialytic intervention. 2. Temporal? lytic lesion-Hematology/Oncology consult has been done. So far, the rest of the bone survey was negative. In addition, a bone scan was said to have been negative. 3. Right renal mass-Urology is following. Unclear what the next plan will be. We are awaiting Urology input. The other possibility is we could further delineate this renal lesion by giving a CT scan with and without contrast, the proper precautions-IV hydration. Overall prognosis remains guarded with this patient. Continue supportive care. Recheck CBC, basic metabolic in a.m. Job ID: [id number] [facility]
[2018-10-01 11:33] VITALS: BMI 33.7
[2018-10-01] MEDS: Acetaminophen 325 MG TAB PO PRN (13:07)
--- NOTE | 2018-10-01 13:16 | PDOC.PN ---
- Subjective Encounter Start Date: 10/01/18 Encounter Start Time: 09:15 Subjective: no sob, feels better -: sister at bedside - Objective Resuscitation Status - Order Detail: 09/23/18 14:32 Resuscitation Status Routine Resuscitation Status: FULL: Full Resuscitation MAR Reviewed: Yes Vital Signs & Weight: Vital Signs (12 hours) Temp Pulse Resp BP Pulse Ox 10/01/18 11:25 98.3 F 64 16 147/70 H 97 10/01/18 07:10 98.3 F 74 12 152/72 H 95 10/01/18 04:00 98.4 F 70 15 159/79 H 91 L Weight Admit Weight 241 lb Weight 249 lb 1.6 oz I&O: 09/30/18 10/01/18 10/02/18 06:59 06:59 06:59 Intake Total 4170 2620 Output Total 2180 2750 Balance 1989 - Result Diagrams: 10/01/18 04:30 10/01/18 04:30 Phys Exam - Physical Examination HEENT: PERRLA, moist MMs Neck: no JVD, supple Respiratory: no wheezing, no rales Cardiovascular: RRR, no significant murmur Gastrointestinal: soft, no distention, positive bowel sounds Musculoskeletal: pulses present, edema present Neurological: non-focal, moves all 4 limbs Psychiatric: normal affect, A&O x 3 Dx/Plan (1) Multiple myeloma Code(s): C90.00 - MULTIPLE MYELOMA NOT HAVING ACHIEVED REMISSION Status: Suspected (2) KERI (acute kidney injury) Code(s): N17.9 - ACUTE KIDNEY FAILURE, UNSPECIFIED Status: Acute Comment: resolving (3) Anemia Code(s): D64.9 - ANEMIA, UNSPECIFIED Status: Acute Qualifiers: Anemia type: unspecified type Qualified Code(s): D64.9 - Anemia, unspecified (4) Pancytopenia Code(s): D61.818 - OTHER PANCYTOPENIA Status: Chronic (5) Hypercalcemia Code(s): E83.52 - HYPERCALCEMIA Status: Resolved (6) CAD (coronary artery disease) Code(s): I25.10 - ATHSCL HEART DISEASE OF [place] CORONARY ARTERY W/O ANG PCTRS Status: Chronic Qualifiers: Coronary Disease-Associated Artery/Lesion type: bypass graft [place] vs. transplanted heart: [place] heart Associated angina: without angina Qualified Code(s): I25.810 - Atherosclerosis of coronary artery bypass graft(s) without angina pectoris Comment: stable (7) Dyslipidemia Code(s): E78.5 - HYPERLIPIDEMIA, UNSPECIFIED Status: Chronic Comment: will continue lipitor (8) Generalized weakness Code(s): R53.1 - WEAKNESS Status: Chronic (9) Gout Code(s): M10.9 - GOUT, UNSPECIFIED Status: Chronic Qualifiers: Gout site: unspecified site Chronicity: chronic Presence of tophus: without tophus Comment: stable (10) HTN (hypertension) Code(s): I10 - ESSENTIAL (PRIMARY) HYPERTENSION Status: Chronic Qualifiers: Hypertension type: essential hypertension Qualified Code(s): I10 - Essential (primary) hypertension Comment: reasonable control - Plan hemostable -: likely will have bon[place] biopsy -: renal function is getting better, off iv fluids -: continue asp, plavix, lopressor -: dc plan is to [facility] when w/u for myeloma is complete * . Review of Systems - Medications/Allergies Allergies/Adverse Reactions: Allergies Allergy/AdvReac Type Severity Reaction Status Date / Time No Known Allergies Allergy Verified 09/23/18 15:24 Medications: Current Medications Acetaminophen (Tylenol) 650 mg PO Q6H PRN PRN Reason: Headache/Fever or Pain Last Admin: 10/01/18 13:07 Dose: 650 mg Hydrocodone Bitart/Acetaminophen ([place] 5/325) 2 tab PO Q4HR PRN PRN Reason: Severe Pain (7-10) Last Admin: 09/24/18 18:19 Dose: 2 tab Hydrocodone Bitart/Acetaminophen ([place] 5/325) 1 tab PO Q4HR PRN PRN Reason: Moderate Pain (4-6) Last Admin: 09/25/18 09:55 Dose: 1 tab Allopurinol (Zyloprim) 100 mg PO DAILY [facility] Last Admin: 10/01/18 08:57 Dose: 100 mg Aspirin (Aspirin Chewable) 81 mg PO QPM [facility] Last Admin: 09/30/18 20:56 Dose: 81 mg Benzonatate (Tessalon) 100 mg PO TID [facility] Last Admin: 10/01/18 08:57 Dose: 100 mg Clopidogrel Bisulfate (Plavix) 37.5 mg PO QPM [facility] Last Admin: 09/30/18 20:56 Dose: 37.5 mg Cyanocobalamin (Vitamin B-12) 1,000 mcg PO DAILY [facility] Last Admin: 10/01/18 08:57 Dose: 1,000 mcg Docusate Sodium (Colace) 100 mg PO DAILY [facility] Last Admin: 10/01/18 08:58 Dose: 100 mg Heparin Sodium (Porcine) (Heparin) 5,000 units SC BID [facility] Last Admin: 10/01/18 08:58 Dose: 5,000 units Hydralazine HCl (Apresoline) 10 mg SLOW IVP Q8H PRN PRN Reason: Blood Pressure Loratadine (Claritin) 10 mg PO DAILY [facility] Last Admin: 10/01/18 08:58 Dose: 10 mg Magnesium Oxide (Magnesium Oxide) 250 mg PO HS [facility] Last Admin: 09/30/18 20:56 Dose: 250 mg Metoprolol Tartrate (Lopressor) 25 mg PO DAILY [facility] Last Admin: 10/01/18 08:58 Dose: 25 mg Sodium Chloride (Flush - Normal Saline) 10 ml IVF Q12HR [facility] Last Admin: 10/01/18 09:06 Dose: 10 ml Sodium Chloride (Flush - Normal Saline) 10 ml IVF PRN PRN PRN Reason: Saline Flush
--- NOTE | 2018-10-01 13:24 | CON ---
DATE OF CONSULTATION: REASON FOR CONSULT: Possible myeloma. HISTORY OF PRESENT ILLNESS: Mr. Perez is a pleasant 83-year-old gentleman, who was admitted to the hospital on September 23 for generalized weakness. This is his second hospitalization for weakness in the last 2 months. He was recently discharged from longterm unit 2 days before this admission. He complains of legs giving out with difficulty walking, but denies any pain. In the emergency room, he was found to have a calcium of 14.6. He was elevated on his last admission in August. He saw Dr. Ramos on Friday prior to admission and had his D3, Lasix, and statin stopped. He has been given Zometa with improvement of his calcium to a normal value of 8.6. He had an abdominal and pelvis CT performed, which showed a questionable mass in his right pole of his kidney. Ultrasound performed showed no solid renal mass, so this might be cystic in nature. Various x-rays performed, which showed lucency of his bones; however, only 1 lesion is suspicious for a lytic lesion and that is on his frontotemporal bone. He had an SPEP performed with an M-spike of 0.2. UPEP M-spike was 75. Light chains are currently pending. We were asked to see the patient regarding likely multiple myeloma. The patient denies any complaints at this time. He has had chronic kidney disease and has been seeing Dr. Flaherty for over 7 years. His kidney function is slightly worse than it has been in prior admission. PAST MEDICAL HISTORY: 1. Hyperlipidemia. 2. Chronic back pain. 3. LA. 4. Gout. 5. Neuropathy. 6. Hypertension. PAST SURGICAL HISTORY: 1. Cardiac bypass, 1991. 2. Rotator cuff repair. 3. Multiple back surgeries. 4. Salivary gland surgery. ALLERGIES: NO KNOWN DRUG ALLERGIES. HOME MEDICATIONS: 1. Allopurinol 100 mg daily. 2. Aspirin 81 mg daily. 3. Plavix 75 mg daily. 4. Colchicine 0.6 mg daily. 5. Vitamin B12 daily. 6. Colace daily. 7. Probiotic daily. 8. Magnesium 250 mg daily. 9. Metoprolol 25 mg daily. 10. Potassium chloride 20 mEq daily. 11. Primidone 50 mg b.i.d. FAMILY HISTORY: Brother was a smoker and had a lung cancer. No history of multiple myeloma. SOCIAL HISTORY: . 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 No alcohol or illicit drug use. Remote history of smoking. REVIEW OF SYSTEMS: Ten-point review of systems is negative, except for noted in HPI. PHYSICAL EXAMINATION: VITAL SIGNS: Temperature is 98.3, pulse is 74, respiratory rate is 12, BP is 152/72. He is 95% on room air. GENERAL: Obese male in no acute distress. HEENT: He is normocephalic and atraumatic. Pupils are equal and reactive to light. NECK: Supple. CV: Regular rate and rhythm. LUNGS: Diminished anterior. ABDOMEN: Obese, nontender. Bowel sounds are positive. EXTREMITIES: He has 2+ edema in his hand and lower extremity. SKIN: There is no rash. HEMATOLOGICAL: He has scattered bruising. No petechiae. NEUROLOGICAL: He is nonfocal. PSYCH: He is alert, oriented, and appropriate. PERTINENT LABS AND X-RAYS: Current WBCs 3.6, hemoglobin 9.7, hematocrit 28.5, platelet count is 104,000. He has 53% neutrophils, 31% lymphocytes. Sodium is 141, potassium is 4, chloride is 114, CO2 is 23, BUN is 15, creatinine is 1.76, uric acid is 3.1, calcium is 8.6, bilirubin is 0.5, AST is 15, ALT is 13, alkaline phosphatase is 84. Serum total protein is 5.6, albumin 3.4, globulin 2.2. PTH is normal. B12 normal. Beta globulins are low at 0.6, M-spike is 0.2. Urine M-spike is 75. [place] light chain is 70.5. IgG is 324, IgA is 37, IgM is 15. Flow cytometry is negative for abnormal cell population. Radiology is noted in [facility]. ASSESSMENT: Likely multiple myeloma. DISCUSSION: Case was discussed with Dr. Perez. Currently waiting serum plasma light chains to return. He has agreed to a bone marrow biopsy to confirm diagnosis. His renal ultrasound shows no solid mass. It is unclear if he has a kidney malignancy that can be followed up in the outpatient setting with Dr. Suarez. Further recommendations will be based after bone marrow biopsy results. Thank you for the consult. Dr. Perez will follow. Job ID: [id number]
[2018-10-01 18:16] VITALS: BP 138/72; TEMP 98.2
--- NOTE | 2018-10-02 11:41 | DIS ---
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 PRIMARY DISCHARGE DIAGNOSES: 1. [place] light chain multiple myeloma. 2. Hypercalcemia secondary to above. 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 4. Pancytopenia likely due to myeloma. 5. Coronary artery disease. 6. Dyslipidemia. 7. Generalized weakness. 8. Gout. 9. Hypertension. PROCEDURES DONE DURING HOSPITALIZATION: Chest x-ray done showed no acute cardiopulmonary abnormalities. Left hip two-view x-ray done showed no acute changes. Pelvic AP standard one-view showed no acute fracture. Abdominal CAT scan without contrast showed findings suspicious for inferior pole right kidney malignant process. There is no evidence of hydronephrosis or obstructive uropathy, chronic fracture through a hemangioma of the T10 vertebral body. A subtle cortical lucency of right posterior 7th rib may reflect osseous metastatic disease. There is also abnormal sclerosis of right 12th rib, also concerning for possible metastatic disease. Ultrasound of kidney done on 09/28/2018 showed bilateral cysts. No definite solid renal mass was seen. Bone scan done on 09/30/2018 showed no scintigraphic evidence of osseous metastatic disease. There are degenerative changes and healing left-sided rib fractures were seen. The lumbar spine three- view plain x-rays done showed extensive postoperative changes from L1 through S1. Severe spondylosis was seen. No identifiable lytic bone lesions were seen. Skull four-view plain x-ray done showed lucency overlying the left temporal bone, worrisome for a lytic lesion. Thoracic spine three-view plain x-ray done showed bone demineralization with severe multilevel spondylosis. H and H of 9 and 28, platelet count is 104, MCV is 110, white count of 3.6. PT/INR 14 and 1.1. Discharge BUN and creatinine are 15 and 1.7. Had creatinine of 2.2 on 2018. The 25-hydroxy vitamin D levels were 43.9. PSA 1.1. Intact PTH 24.4. Total protein 5.6, albumin 3.4, globulin 2.2. Vitamin B12 of 957. Had M spike of 0.2. The patient's serum protein electrophoresis showed a single peak M spike in the gamma region, which may represent monoclonal protein. CRP less than 0.5. Had serum calcium of 14.6 on the day of admission with albumin of 4.0 on the day of admission. Urine electrophoresis showed a M spike of 75.0%. Had urine total kappa light chain of 70.50. The normal levels were up to 24. Urine total lambda light chain was 14,200 mg/dL. IgG total 324. IgA total 37, which is low. IgM total 15, again low. Total protein was 5.6, albumin 3.2. Flow cytometry showed no diagnostic immunophenotypic abnormalities were detected. PTH-related peptide was less than 2 pmol/L, which is within the reference range. INPATIENT CONSULTS: 1. Dr. Jt Perez for Oncology. 2. Dr. Flaherty for Nephrology. DISCHARGE MEDICATIONS: 1. Allopurinol 100 mg p.o. daily. 2. Aspirin 81 mg p.o. daily. 3. Vitamin B12 of 1000 mcg p.o. daily. 4. Colace 100 mg p.o. daily. 5. Magnesium 250 mg p.o. q.p.m. 6. Lopressor 25 mg daily. 7. Primidone 50 mg twice daily. 8. Tylenol p.r.n. ALLERGIES: NO KNOWN DRUG ALLERGIES. DISCHARGE PLAN: The patient is being discharged to [facility] for plasmapheresis with his multiple myeloma. He will follow up with Dr. Jt Perez in 1 to 2 weeks and primary care physician in 1 week. BRIEF COURSE DURING HOSPITALIZATION: The patient initially was brought to emergency room on the with complaints of generalized weakness. His initial serum calcium was 14 with albumin of 4. The patient has had similar hypercalcemia in the past. Multiple workups were done to find the cause for his hypercalcemia. He received a dose of zoledronic acid during his brief stay here. The patient had SPEP and UPEP done. This showed light chain M spike. There was kappa light chain elevated at 70. He has had lambda light chain up to 14,000. 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 He was evaluated by Dr. Jt Perez. In view of severely elevated lambda light chains of 14,000, the patient is being transferred to [facility] in [place] for plasmapheresis. Transfer center has arranged transport for the patient. A total of 35 minutes was spent on discharge plan. The patient has some deconditioning, but has been ambulating inside the room and would benefit from further physical therapy at [facility]. Once his light chains levels have come down with plasmapheresis , he will follow up with Dr. Jt Perez for further chemo/immunotherapy for his multiple myeloma. Please see a [id number] documentation for the day of discharge on [employer]. Job ID: [id number] MTDD
[2018-10-02 15:15] LABS: Kappa Light Chains 9.9 mg/L (3.3-19.4); Lambda Light Chain 10179.5 mg/L (5.7-26.3)
== END 2018-10-01 18:44 | disposition short-term general hospital (02) | DRG 841 ==
LOC: ERS 10:42 → ERHOLD 12:55 → 2NO 15:04
PROVIDERS: ADMIT Internal Medicine; ATTEND Internal Medicine
DX: C90.00 Multiple myeloma not having achieved remission (principal); D80.8 Other immunodeficiencies with predominantly antibody defects; N17.9 Acute kidney failure, unspecified; D61.818 Other pancytopenia; R29.6 Repeated falls; E78.00 Pure hypercholesterolemia, unspecified; G62.9 Polyneuropathy, unspecified; G89.29 Other chronic pain; G47.33 Obstructive sleep apnea (adult) (pediatric); M54.9 Dorsalgia, unspecified; N18.9 Chronic kidney disease, unspecified; M10.9 Gout, unspecified; I12.9 Hypertensive chronic kidney disease with stage 1 through stage 4 chronic kidney disease, or unspecified chronic kidney disease; I25.10 Atherosclerotic heart disease of native coronary artery without angina pectoris; E83.52 Hypercalcemia; Z79.82 Long term (current) use of aspirin; Z87.01 Personal history of pneumonia (recurrent); Z87.891 Personal history of nicotine dependence; Z79.899 Other long term (current) drug therapy; I25.2 Old myocardial infarction
CPT/HCPCS: 36415; 70260; 71045; 72070; 72100; 72170; 74150; 76770; 78306; 80048; 80053; 80202; 81001; 81003; 81015; 82232; 82274; 82306; 82533; 82550; 82607; 83615; 83735; 83880; 83883; 83970; 84153; 84165; 84166; 84443; 84484; 84550; 85007; 85025; 85027; 85046; 85060; 85610; 85652; 86140; 87086; 88184; 93005; 93306; 96360; 96361; A9503; J1644; J1650; J2543; J3370; J3489; J3490; J7050

== ENCOUNTER 2018-11-13 09:09 | Day surgery (SDC) | payer MEDICARE, OTHER ==
[2018-11-12 10:58] VITALS: BMI 36.6
[2018-11-13] MEDS ORDERED: Fentanyl 100 MCG/2 ML VIAL ONE (10:15)
[2018-11-13 10:30] LABS: #Eosinphils 0.1 thou/uL (0.0-0.7); #Lymphocytes 0.7 thou/uL (1.20-3.40); #Monocytes 0.3 thou/uL (0.11-0.59); #Neutrophils 1.9 thou/uL (1.40-6.50); %Basophils 1.1 % (0.0-1.0); %Eosinophils 4.2 % (0.0-10.0); %Lymphocytes 23.4 % (21.0-51.0); %Monocytes 10.7 % (0.0-10.0); %Neutrophils 60.6 % (42.0-75.0); Hemoglobin 9.7 g/dL (14.0-18.0); Mean Corpuscular HGB CONC 34.7 g/dL (32.0-36.0); Mean Corpuscular Hemoglobin 39.4 pg (27.0-31.0); Mean Platelet Volume 8.5 fL (7.4-10.4); Platelet Count 126 thou/uL (130-400); RBC Distribution Width 13.5 % (11.5-14.5); Red Blood Cell (RBC) Count 2.46 mill/uL (4.70-6.10); White Blood Cell (WBC) Count 3.1 thou/uL (4.8-10.8)
[2018-11-13] MEDS ORDERED: Lidocaine 2% PF 5 ML VIAL ONE (10:42)
[2018-11-13] MEDS ORDERED: Bupivacaine/Epinephrine 0.25% 30 ML VIAL ONE (10:42)
[2018-11-13] MEDS ORDERED: HYDROcodone/Acetaminophen 5/325 mg Tablet ONE (13:29)
--- NOTE | 2018-11-13 13:39 | RAD ---
RADIOGRAPH CHEST 1 VIEW: Date: 11/13/18 Time: 1218 hours HISTORY: 83-year-old male status post MediPort placement. COMPARISON: 09/23/18. FINDINGS: There is a new implantable vascular access port which descends the medial aspect of the right lower n damaris, with distal tip overlying the upper lateral portion of the mediastinum, in the expected vicinity of the confluence of the brachiocephalic veins and SVC. No pneumothorax is visualized. Again noted i s the severely elevated left hemidiaphragm. Signs of previous CABG. No pulmonary edema, pneumothorax, or any other interval change. IMPRESSION: 1. Right-sided implantable vascular access port placement without pneumothorax. 2. Severely chronically elevated left hemidiaphragm. 3. Status post coronary artery bypass graft surgery is evidence for coronary atherosclerotic disease . JN [] POS: TPC
[2018-11-13] MEDS ORDERED: PROPOFOL 200 MG/20 ML VIAL ONE (13:50)
--- NOTE | 2018-11-13 16:21 | OP ---
DATE OF PROCEDURE: 11/13/2018 PREOPERATIVE DIAGNOSIS: Multiple myeloma. POSTOPERATIVE DIAGNOSIS: Multiple myeloma. PROCEDURE PERFORMED: Tunneled central line subcutaneous port (MediPort CT injectable). ANESTHESIA: TIVA, local. ESTIMATED BLOOD LOSS: None. COMPLICATIONS: None. SPECIMEN: None. FINDINGS: Tip of the catheter was at the atriocaval junction. DESCRIPTION OF PROCEDURE: The patient was taken to the operating room and laid supine on the operating room table. After sedation was obtained, bilateral neck and chest were prepped and draped in a sterile fashion. Local anesthetic was infiltrated over the right internal jugular vein. Internal jugular vein was cannulated using a 22-gauge finder needle, followed by a Seldinger needle. Wire was passed into the superior vena cava under fluoro guidance. There was some difficulty getting from the wire, it wanted to go into the right subclavian vein, but ultimately under fluoro guidance, it was placed into the superior vena cava. A small abigail was made to at the wire entrance site. A separate 4 cm incision was made in the right upper chest. Subcutaneous pocket made below the lower incision. Tubing for the MediPort tunneled from the inferior to the superior incision. Introducer sheath was placed over the wire into the superior vena cava under fluoro guidance. The dilator and wire were removed. The end of the catheter was sewn into the sheath. As the sheath was peeled away, the tip of the catheter was at the atriocaval junction. MediPort tubing was cut to fit the MediPort at the lower incision, connected to the MediPort. The MediPort was sewn to the chest wall in the subcutaneous pocket. The MediPort tubing was withdrawn slightly during this, so a post pocket fluoro was obtained, which showed that the catheter had backed up into the subclavian vein, and so through the neck incision, the catheter was able to be withdrawn and placed back down into the superior vena cava under fluoro guidance. The MediPort flushed and iron blood without difficulties, flushed with a heparin flush. Fluoro revealed the tip of the catheter to still be at the atriocaval junction. 3-0 Vicryl, 4-0 Monocryl, and Dermabond used to close the skin incisions. The MediPort was left accessed. The access tubing flushed as well. The patient was sent to Recovery in stable condition. All instrument counts, needle counts, and lap counts were correct. Job ID: [id number]
== END 2018-11-13 13:50 | disposition home or self-care (01) ==
LOC: SDC 09:09
PROVIDERS: ATTEND Surgery
PROC: 05HM33Z Insertion of Infusion Device into Right Internal Jugular Vein, Percutaneous Approach (ICD-10-PCS; principal; 2018-11-13)
DX: C90.00 Multiple myeloma not having achieved remission (principal); I10 Essential (primary) hypertension; E78.00 Pure hypercholesterolemia, unspecified; M06.9 Rheumatoid arthritis, unspecified; Z79.82 Long term (current) use of aspirin; Z79.899 Other long term (current) drug therapy; Z95.1 Presence of aortocoronary bypass graft
CPT/HCPCS: 36561; 71045; 85025; C1788; J1642; J2001; J3010

== ENCOUNTER → 2019-01-28 | Day surgery (SDC) | payer MEDICARE, OTHER ==
[2019-01-27 15:22] VITALS: BMI 41.9
[2019-01-28 09:47] VITALS: BP 138/79; TEMP 97.9
--- NOTE | 2019-01-28 11:51 | CT ---
CT Deep Bone Perc Biopsy CT GUIDED BONE MARROW BIOPSY: CLINICAL HISTORY: Multiple myeloma. PROCEDURE: Informed consent was obtained and the patient was escorted to the procedural suite, placed in prone p osition. The patient's skin was prepped and draped in a standard sterile fashion and topical anesthesia with buffered 1% lidocaine was performed. Using a standard bone biopsy kit, the bone marro w biopsy needle and trocar were advanced to the cortex of the left ilium. After adequate placement was confirmed with CT fluoroscopic imaging, subsequent bone marrow aspirations and marrow biopsy were performed. These were confirmed with CT fluoroscopic imaging and the specimens were submitted to the phlebotomists for preparation. Specimens were deemed adequate for interpretation. Therefore, all devices were then removed from the patient. No unexpected procedural complications were present. The patient was monitored in radiology holding i n stable condition prior to discharge with family member. IMPRESSION: Technically successful percutaneous bone marrow aspiration. Pathology results are pending.
--- NOTE | 2019-01-28 12:27 | RAD ---
BONE SURVEY: HISTORY: Staging of myeloma. COMPARISON: A skull film of 09/30/2018 as well as some prior CTs of the abdomen and chest. FINDINGS: The bones are demineralized. There are subtle lucent foci within the skull. When compared to the 03/2019 exam, these areas of lucency appear suddenly more prominent. Also, there are areas of lucenc y involving the pelvis, specifically an area in the left inferior and right inferior pubic rami and n ear the symphysis. Also subtle lucent areas within both femoral neck regions. There are also some s ubtle areas of lucency seen within the spine. Certainly some of these changes are related to osteopo rosis. Also, some subtle changes within both humeral shafts and within the femoral shafts. IMPRESSION: Subtle area of lucent foci throughout the skeletal system. Some of this change is just on the basis of bone demineralization, but I feel that this probably represents diffuse myelomatous involvement as some of these lisa changes appear progressed as compared to previous CT studies. POS: TPVilma
== END ==
LOC: CT 08:54
PROVIDERS: ATTEND Internal Medicine Hematology & Oncology
PROC: 07DR3ZX Extraction of Iliac Bone Marrow, Percutaneous Approach, Diagnostic (ICD-10-PCS; principal; 2019-01-28)
PROC: BR2 Imaging, Axial Skeleton, Except Skull and Facial Bones, Computerized Tomography (CT Scan) (ICD-10-PCS; 2019-01-28)
DX: C90.00 Multiple myeloma not having achieved remission (principal); I12.9 Hypertensive chronic kidney disease with stage 1 through stage 4 chronic kidney disease, or unspecified chronic kidney disease; N18.9 Chronic kidney disease, unspecified; I25.2 Old myocardial infarction; Z87.891 Personal history of nicotine dependence; Z95.1 Presence of aortocoronary bypass graft
CPT/HCPCS: 20225; 77002; 77075; 85097; 88184; 88237; 88264; 88280; 88305; 88313; 88342; 88365

== ENCOUNTER 2019-05-24 10:43 | Outpatient (CLI) | payer MEDICARE, OTHER ==
--- NOTE | 2019-05-24 11:21 | RAD ---
Exam:4 views left knee HISTORY: Pain COMPARISON: None FINDINGS: Mild degenerative change in the medial compartment. No joint effusion. No fracture. No sivakumar lignment. IMPRESSION: Mild medial compartment degenerative change.
--- NOTE | 2019-05-24 11:23 | RAD ---
Exam:4 views right knee HISTORY: Pain. COMPARISON: None FINDINGS: Multiple surgical clips are noted. There is atherosclerosis. Minimal loss of the medial com partment joint space height. Minimal chondrocalcinosis. No joint effusion. No fracture or malalignment. IMPRESSION: 1. Minimal chondrocalcinosis involving the medial and lateral compartment. Correlate for CPPD 2. Minimal loss of the medial compartment joint space height
== END 2019-05-24 10:44 | disposition home or self-care (01) ==
LOC: BICRAD 10:43
PROVIDERS: ATTEND Internal Medicine
DX: M25.561 Pain in right knee (principal); M25.562 Pain in left knee; M25.361 Other instability, right knee; M11.261 Other chondrocalcinosis, right knee; M25.861 Other specified joint disorders, right knee; M17.12 Unilateral primary osteoarthritis, left knee

== ENCOUNTER 2020-08-01 02:06 | Emergency (ER) | payer MEDICARE, OTHER ==
[2020-08-01 02:45] LABS: Bilirubin Negative (Negative); Blood, Urine Large (Negative); Glucose, Urine (Dipstick) Negative (Negative); Ketone, Urine Negative (Negative); Leukocyte Trace (Negative); Nitrite Negative (Negative); Protein, Urine (Dipstick) 100 mg/dL (Neg-Trace); Urobilinogen 0.2 mg/dL (Less than 2)
[2020-08-01 02:54] LABS: Bacteria/HPF None Seen HPF (None Seen); Clarity Hazy (Clear); RBC/HPF Greater than 50 HPF (0-3); Specific Gravity, Urine 1.008 (1.002-1.036); Squamous Epithelial None Seen HPF (0-3)
[2020-08-01 03:45] LABS: ALT (SGPT) 15 U/L (8-55); AST (SGOT) 20 U/L (5-34); Albumin 3.5 g/dL (3.4-4.8); Alkaline Phosphatase 118 U/L (40-110); Anion Gap 11 mmol/L (10-20); BUN (Urea Nitrogen) 23 mg/dL (8.4-25.7); Bilirubin, Total 0.4 mg/dL (0.2-1.2); Calc. Creatinine Clearance 0 mL/min (70-130); Calcium 8.5 mg/dL (7.8-10.44); Carbon Dioxide 29 mmol/L (23-31); Chloride 102 mmol/L (98-107); Globulin 2.2 g/dL (2.4-3.5); Glucose 105 mg/dL (83-110); Protein, Total 5.7 g/dL (5.8-8.1); Sodium 138 mmol/L (136-145)
[2020-08-01 04:05] LABS: #Eosinphils 0.6 thou/uL (0.0-0.7); #Monocytes 0.6 thou/uL (0.11-0.59); #Neutrophils 2.2 thou/uL (1.40-6.50); %Basophils 0.8 % (0.0-1.0); %Eosinophils 12.6 % (0.0-10.0); %Lymphocytes 22.9 % (21.0-51.0); %Monocytes 14.2 % (0.0-10.0); %Neutrophils 49.5 % (42.0-75.0); Anisocytosis SLIGHT = 6-15 cells (100X) (0-5/hpf); Hemoglobin 12.6 g/dL (14.0-18.0); MDiff Complete? YES; Macrocytosis SLIGHT = 6-15 cells (100X) (0-5/hpf); Mean Corpuscular HGB CONC 33.5 g/dL (32.0-36.0); Mean Corpuscular Hemoglobin 36.3 pg (27.0-31.0); Mean Platelet Volume 8.6 fL (7.4-10.4); Platelet Count 93 thou/uL (130-400); Platelet Morphology Comment Appears Decreased; RBC Distribution Width 13.7 % (11.5-14.5); Red Blood Cell (RBC) Count 3.47 mill/uL (4.70-6.10); White Blood Cell (WBC) Count 4.5 thou/uL (4.8-10.8)
== END 2020-08-01 04:44 | disposition home or self-care (01) ==
LOC: ERS 02:06
DX: R31.9 Hematuria, unspecified (principal); R10.9 Unspecified abdominal pain; M10.9 Gout, unspecified; E78.5 Hyperlipidemia, unspecified; I10 Essential (primary) hypertension; I25.10 Atherosclerotic heart disease of native coronary artery without angina pectoris; Z87.01 Personal history of pneumonia (recurrent)
CPT/HCPCS: 36415; 74176; 80053; 81003; 81015; 85025; 87086

== ENCOUNTER 2021-01-11 07:35 | Outpatient (CLI) | payer MEDICARE, OTHER | END 2021-01-11 07:36 | disposition home or self-care (01) | LOC: PET 07:35 | PROVIDERS: ATTEND Internal Medicine Hematology & Oncology | DX: C90.00 Multiple myeloma not having achieved remission (principal); N20.0 Calculus of kidney; I25.84 Coronary atherosclerosis due to calcified coronary lesion | CPT/HCPCS: 78816; A9552 ==

== ENCOUNTER 2021-11-28 22:44 | Observation (INO) | payer OTHER, MEDICARE ==
[2021-11-29 00:06] LABS: #Lymphocytes 0.7 thou/uL (1.20-3.40); #Monocytes 0.2 thou/uL (0.11-0.59); #Neutrophils 4.8 thou/uL (1.40-6.50); %Basophils 0.3 % (0.0-1.0); %Eosinophils 0.4 % (0.0-10.0); %Lymphocytes 11.9 % (21.0-51.0); %Monocytes 3.3 % (0.0-10.0); %Neutrophils 84.1 % (42.0-75.0); Hemoglobin 13.5 g/dL (14.0-18.0); Mean Corpuscular HGB CONC 32.4 g/dL (32.0-36.0); Mean Platelet Volume 9.3 fL (7.4-10.4); PTT 29.6 sec (22.9-36.1); Platelet Count 142 thou/uL (130-400); Prothrombin Time 13.6 sec (12.0-14.7); RBC Distribution Width 13.6 % (11.5-14.5); Red Blood Cell (RBC) Count 3.75 mill/uL (4.70-6.10); White Blood Cell (WBC) Count 5.7 thou/uL (4.8-10.8)
[2021-11-29 00:23] LABS: MDiff Complete? YES; Macrocytosis MODERATE=16-30 cells (100X) (0-5/hpf); Ovalocytes SLIGHT = 2-5 cells (100X) (0-1/hpf); Platelet Morphology Comment Appears Adequate
[2021-11-29 00:25] LABS: ALT (SGPT) 20 U/L (8-55); AST (SGOT) 18 U/L (5-34); Albumin 3.8 g/dL (3.4-4.8); Alkaline Phosphatase 128 U/L (40-110); Anion Gap 15 mmol/L (10-20); BUN (Urea Nitrogen) 37 mg/dL (8.4-25.7); Bilirubin, Total 0.3 mg/dL (0.2-1.2); Calc. Creatinine Clearance 0 mL/min (70-130); Calcium 9.2 mg/dL (7.8-10.44); Carbon Dioxide 27 mmol/L (23-31); Chloride 103 mmol/L (98-107); Estimated GFR 48; Globulin 1.9 g/dL (2.4-3.5); Glucose 104 mg/dL (83-110); Potassium 4.3 mmol/L (3.5-5.1); Protein, Total 5.7 g/dL (5.8-8.1); Sodium 141 mmol/L (136-145)
[2021-11-29] MEDS ORDERED: Fentanyl 100 MCG/2 ML VIAL ONE (00:48)
[2021-11-29] MEDS ORDERED: Morphine 4 MG/ML VIAL ONE ×2 (02:07→06:22)
[2021-11-29] MEDS ORDERED: Loperamide HCl 2 MG CAP ONE (06:23)
[2021-11-29] MEDS ORDERED: Loperamide HCl 2 MG CAP PO SCH (06:30)
[2021-11-29] MEDS ORDERED: Morphine 4 MG/ML VIAL SLOW IVP SCH (06:30)
[2021-11-29] MEDS ORDERED: Acetaminophen 325 MG TAB PO PRN (08:03)
[2021-11-29] MEDS ORDERED: Iopamidol 370 76% 100 ML VIAL ONE (08:51)
[2021-11-29 09:08] LABS: Bilirubin Negative (Negative); Blood, Urine Negative (Negative); Clarity Clear (Clear); Glucose, Urine (Dipstick) Normal (Negative); Ketone, Urine Negative (Negative); Leukocyte 500 Leu/uL (Negative); Nitrite Negative (Negative); Protein, Urine (Dipstick) 10 mg/dL (Neg-Trace); RBC/HPF 0-3 HPF (0-3); Urobilinogen Normal mg/dL (Less than 2)
[2021-11-29 09:09] LABS: Bacteria/HPF 1+ HPF (None Seen); Specific Gravity, Urine 1.055 (1.002-1.036)
[2021-11-29 16:08] VITALS: BMI 35.7
[2021-11-29] MEDS ORDERED: Morphine 2 MG/ML VIAL SLOW IVP SCH (20:30)
[2021-11-30 08:50] LABS: Anion Gap 11 mmol/L (10-20); BUN (Urea Nitrogen) 35 mg/dL (8.4-25.7); Calc. Creatinine Clearance 61 mL/min (70-130); Calcium 8.7 mg/dL (7.8-10.44); Carbon Dioxide 29 mmol/L (23-31); Chloride 104 mmol/L (98-107); Estimated GFR 48; Glucose 102 mg/dL (83-110); Potassium 3.8 mmol/L (3.5-5.1); Sodium 140 mmol/L (136-145)
[2021-11-30] MEDS ORDERED: Primidone 50 MG TAB PO SCH (09:00)
[2021-11-30] MEDS ORDERED: Allopurinol 100 MG TAB PO SCH (09:00)
[2021-11-30] MEDS ORDERED: Loratadine 10 MG TAB PO SCH (09:00)
[2021-11-30] MEDS ORDERED: valACYclovir 500 MG TAB PO SCH (09:00)
[2021-11-30] MEDS ORDERED: Metoprolol Tartrate 25 MG TAB PO SCH (09:00)
[2021-11-30] MEDS ORDERED: Stress 600 With Zinc 1 TAB PO SCH (09:00)
[2021-11-30] MEDS ORDERED: Docusate 100 MG CAP PO SCH (09:00)
[2021-11-30 09:09] LABS: #Eosinphils 0.2 thou/uL (0.0-0.7); #Lymphocytes 1.3 thou/uL (1.20-3.40); #Monocytes 0.7 thou/uL (0.11-0.59); #Neutrophils 5.7 thou/uL (1.40-6.50); %Basophils 0.2 % (0.0-1.0); %Eosinophils 2.8 % (0.0-10.0); %Lymphocytes 16.5 % (21.0-51.0); %Monocytes 8.3 % (0.0-10.0); %Neutrophils 72.2 % (42.0-75.0); MDiff Complete? YES; Macrocytosis SLIGHT = 6-15 cells (100X) (0-5/hpf); Mean Corpuscular HGB CONC 32.2 g/dL (32.0-36.0); Mean Corpuscular Hemoglobin 35.8 pg (27.0-31.0); Mean Platelet Volume 8.6 fL (7.4-10.4); Platelet Count 96 thou/uL (130-400); Platelet Morphology Comment Appears Decreased; Polychromasia SLIGHT = 2-3 cells (100X) (0-2/hpf); RBC Distribution Width 13.6 % (11.5-14.5); Red Blood Cell (RBC) Count 3.63 mill/uL (4.70-6.10); White Blood Cell (WBC) Count 7.9 thou/uL (4.8-10.8)
[2021-11-30] MEDS: Finasteride 5 MG TAB PO SCH ×2 (11:26→11:27)
[2021-11-30 11:55] VITALS: TEMP 97.8
[2021-11-30 12:19] VITALS: BP 108/64
[2021-11-30] MEDS ORDERED: Magnevist 469MG/ML 20 ML VIAL ONE (14:49)
[2021-11-30] MEDS ORDERED: Atorvastatin Calcium 20 MG TAB PO SCH (21:00)
[2021-11-30] MEDS ORDERED: Magnesium Oxide 250 MG TAB PO SCH (21:00)
== END 2021-11-30 15:34 | disposition home or self-care (01) ==
LOC: ERS 22:44 → ERHOLD 11-29 03:55 → 2NO 11-29 16:05
PROVIDERS: ADMIT Internal Medicine; ATTEND Internal Medicine
DX: S06.5X0A Traumatic subdural hemorrhage without loss of consciousness, initial encounter (principal); I12.9 Hypertensive chronic kidney disease with stage 1 through stage 4 chronic kidney disease, or unspecified chronic kidney disease; N18.31 Chronic kidney disease, stage 3a; C90.01 Multiple myeloma in remission; E78.5 Hyperlipidemia, unspecified; M10.9 Gout, unspecified; G62.9 Polyneuropathy, unspecified; I25.10 Atherosclerotic heart disease of native coronary artery without angina pectoris; Z79.82 Long term (current) use of aspirin; Z79.899 Other long term (current) drug therapy; Z95.1 Presence of aortocoronary bypass graft; Z99.3 Dependence on wheelchair; Z20.822 Contact with and (suspected) exposure to COVID-19; W01.0XXA Fall on same level from slipping, tripping and stumbling without subsequent striking against object, initial encounter
CPT/HCPCS: 70450; 70553; 71260; 80048; 80053 ×2; 82248; 83615; 84100; 84550; 85025 ×2; 85610; 85730; 97116; J2270; U0003; U0005; 36415; 81003; 81015; 96374; 96375; 96376; A9579; G0378; J3010; Q9967

== ENCOUNTER 2022-02-14 12:11 | Outpatient (CLI) | payer MEDICARE, OTHER | END 2022-02-14 12:12 | disposition home or self-care (01) | LOC: RAD 12:11 | PROVIDERS: ATTEND Internal Medicine Hematology & Oncology | DX: R06.02 Shortness of breath (principal); R05.9 Cough, unspecified; R06.2 Wheezing; C90.01 Multiple myeloma in remission; N18.31 Chronic kidney disease, stage 3a | CPT/HCPCS: 71046 ==

== ENCOUNTER 2022-07-23 12:30 | Emergency (ER) | payer MEDICARE, OTHER ==
[2022-07-23 13:12] LABS: #Eosinphils 0.3 thou/uL (0.0-0.7); #Lymphocytes 0.8 thou/uL (1.20-3.40); #Monocytes 0.5 thou/uL (0.11-0.59); #Neutrophils 5.5 thou/uL (1.40-6.50); %Basophils 0.4 % (0.0-1.0); %Eosinophils 4.6 % (0.0-10.0); %Lymphocytes 10.7 % (21.0-51.0); %Monocytes 6.8 % (0.0-10.0); %Neutrophils 77.6 % (42.0-75.0); Hemoglobin 13.7 g/dL (14.0-18.0); Mean Corpuscular HGB CONC 33.1 g/dL (32.0-36.0); Mean Corpuscular Hemoglobin 36.7 pg (27.0-31.0); Mean Platelet Volume 8.7 fL (7.4-10.4); Platelet Count 135 10x3/uL (130-400); RBC Distribution Width 14.9 % (11.5-14.5); Red Blood Cell (RBC) Count 3.74 mill/uL (4.70-6.10); White Blood Cell (WBC) Count 7.1 10x3/uL (4.8-10.8)
[2022-07-23 13:31] LABS: ALT (SGPT) 18 U/L (8-55); AST (SGOT) 22 U/L (5-34); Albumin 3.9 g/dL (3.4-4.8); Alkaline Phosphatase 123 U/L (40-110); Anion Gap 12 mmol/L (10-20); BUN (Urea Nitrogen) 18 mg/dL (8.4-25.7); Bilirubin, Total 0.5 mg/dL (0.2-1.2); Calc. Creatinine Clearance 0 mL/min (70-130); Calcium 9.6 mg/dL (7.8-10.44); Carbon Dioxide 30 mmol/L (23-31); Chloride 105 mmol/L (98-107); Estimated GFR 60; Globulin 2.5 g/dL (2.4-3.5); Glucose 101 mg/dL (83-110); Magnesium 2.1 mg/dL (1.6-2.6); Potassium 4.5 mmol/L (3.5-5.1); Protein, Total 6.4 g/dL (5.8-8.1); Sodium 142 mmol/L (136-145)
[2022-07-23 13:40] LABS: MDiff Complete? YES; Macrocytosis SLIGHT = 6-15 cells (100X) (0-5/hpf); Ovalocytes SLIGHT = 2-5 cells (100X) (0-1/hpf); Platelet Morphology Comment Appears Adequate; Polychromasia SLIGHT = 2-3 cells (100X) (0-2/hpf)
[2022-07-23 17:10] LABS: Bilirubin Negative (Negative); Blood, Urine Negative (Negative); Clarity Clear (Clear); Glucose, Urine (Dipstick) Normal (Negative); Ketone, Urine Negative (Negative); Leukocyte Negative Leu/uL (Negative); Nitrite Negative (Negative); Protein, Urine (Dipstick) 20 mg/dL (Neg-Trace); Specific Gravity, Urine 1.012 (1.002-1.036); Urobilinogen Normal mg/dL (Less than 2); pH, Urine 7.5 (5.0-9.0)
[2022-07-23] MEDS ORDERED: Aspirin 325 MG TAB ONE (17:10)
[2022-07-23 17:39] LABS: Critical Call Chem Troponin I RESULT DECREASING
[2022-07-23 17:57] LABS: CKMB 3.3 ng/mL (0-6.6)
== END 2022-07-23 22:34 | disposition short-term general hospital (02) ==
LOC: ERS 12:30
DX: I82.432 Acute embolism and thrombosis of left popliteal vein (principal); I82.412 Acute embolism and thrombosis of left femoral vein; I25.10 Atherosclerotic heart disease of native coronary artery without angina pectoris; I10 Essential (primary) hypertension; E78.5 Hyperlipidemia, unspecified; Z79.82 Long term (current) use of aspirin; Z79.899 Other long term (current) drug therapy
CPT/HCPCS: 36415; 71045; 80053; 81003; 82553; 83605; 83735; 83880; 84484; 85025; 93005; J1650

== ENCOUNTER 2022-12-18 19:33 | Emergency (ER) | payer MEDICARE, OTHER ==
[2022-12-18 20:41] LABS: #Eosinphils 0.6 thou/uL (0.0-0.7); #Monocytes 0.9 thou/uL (0.11-0.59); #Neutrophils 3.3 thou/uL (1.40-6.50); %Basophils 0.3 % (0.0-1.0); %Monocytes 13.9 % (0.0-10.0); %Neutrophils 53.6 % (42.0-75.0); Hematocrit 37.9 % (42.0-52.0); Hemoglobin 12.2 g/dL (14.0-18.0); Mean Corpuscular HGB CONC 32.2 g/dL (32.0-36.0); Mean Corpuscular Hemoglobin 35.2 pg (27.0-31.0); Mean Corpuscular Volume 109.2 fl (78.0-98.0); Mean Platelet Volume 11.6 fL (7.4-10.4); Platelet Count 104 10x3/uL (130-400); RBC Distribution Width 14.1 % (11.5-14.5); Red Blood Cell (RBC) Count 3.47 mill/uL (4.70-6.10); White Blood Cell (WBC) Count 6.1 10x3/uL (4.8-10.8)
[2022-12-18 21:07] LABS: Troponin I Less than 0.010 ng/mL (< 0.028)
[2022-12-18 21:14] LABS: ALT (SGPT) 16 U/L (8-55); AST (SGOT) 18 U/L (5-34); Albumin 3.6 g/dL (3.4-4.8); Alkaline Phosphatase 118 U/L (40-110); Anion Gap 15 mmol/L (10-20); BUN (Urea Nitrogen) 19 mg/dL (8.4-25.7); Bilirubin, Total 0.3 mg/dL (0.2-1.2); Calc. Creatinine Clearance 0 mL/min (70-130); Calcium 8.9 mg/dL (7.8-10.44); Carbon Dioxide 24 mmol/L (23-31); Chloride 104 mmol/L (98-107); Estimated GFR 65; Globulin 2.2 g/dL (2.4-3.5); Potassium 4.6 mmol/L (3.5-5.1); Protein, Total 5.8 g/dL (5.8-8.1); Sodium 138 mmol/L (136-145)
[2022-12-18 21:19] LABS: Glucose 53 mg/dL (83-110)
== END 2022-12-19 01:52 | disposition home or self-care (01) ==
LOC: ERS 19:33
DX: L03.114 Cellulitis of left upper limb (principal); R60.0 Localized edema; M89.8X8 Other specified disorders of bone, other site; I25.10 Atherosclerotic heart disease of native coronary artery without angina pectoris; E78.5 Hyperlipidemia, unspecified; I10 Essential (primary) hypertension; Z79.899 Other long term (current) drug therapy
CPT/HCPCS: 36416; 71045; 71275; 80053; 84484; 85025; 85379; 93005; 93923; 96374; J1642

== ENCOUNTER 2023-03-18 06:25 | Day surgery (SDC) | payer MEDICARE, OTHER ==
[2023-03-12 15:36] VITALS: BMI 36.6
[2023-03-18] MEDS ORDERED: Vasopressin 20 UNITS/ML VIAL ONE (07:26)
[2023-03-18] MEDS ORDERED: PROPOFOL 40 ML ONE (07:29)
[2023-03-18] MEDS ORDERED: Lidocaine 1% PF 5 ML VIAL ONE (07:29)
== END 2023-03-18 09:00 | disposition home or self-care (01) ==
LOC: SDC 06:25
PROVIDERS: ATTEND Internal Medicine Gastroenterology
PROC: 0DJD8ZZ Inspection of Lower Intestinal Tract, Via Natural or Artificial Opening Endoscopic (ICD-10-PCS; principal; 2023-03-18)
DX: Z12.11 Encounter for screening for malignant neoplasm of colon (principal); R94.8 Abnormal results of function studies of other organs and systems; K57.30 Diverticulosis of large intestine without perforation or abscess without bleeding; Z86.010 Personal history of colon polyps; M19.90 Unspecified osteoarthritis, unspecified site; I50.9 Heart failure, unspecified; G47.30 Sleep apnea, unspecified; K64.9 Unspecified hemorrhoids; I10 Essential (primary) hypertension; N20.0 Calculus of kidney; Z86.711 Personal history of pulmonary embolism; Z98.49 Cataract extraction status, unspecified eye; Z95.1 Presence of aortocoronary bypass graft; Z79.01 Long term (current) use of anticoagulants; Z87.891 Personal history of nicotine dependence; Z79.899 Other long term (current) drug therapy
CPT/HCPCS: J2704

== ENCOUNTER 2024-01-17 08:31 | Inpatient (IN) | payer MEDICARE, OTHER ==
[2024-01-17 09:14] LABS: Hemoglobin 11.1 g/dL (14.0-18.0)
[2024-01-17 09:15] LABS: #Basophils 0.03 10x3/uL (0.0-0.2); %Basophils 0.3 % (0.0-1.0); %Eosinophils 0.7 % (0.0-10.0); %Lymphocytes 5.3 % (21.0-51.0); %Monocytes 6.7 % (0.0-10.0); %Neutrophils 86.5 % (42.0-75.0); Hematocrit 34.2 % (42.0-52.0); Mean Corpuscular HGB CONC 32.5 g/dL (32.0-36.0); Mean Corpuscular Hemoglobin 36.8 pg (27.0-31.0); Mean Corpuscular Volume 113.2 fL (78.0-98.0); Mean Platelet Volume 11.1 fL (7.4-10.4); Platelet Count 92 10x3/uL (130-400); RBC Distribution Width 15.8 % (11.5-14.5); Red Blood Cell (RBC) Count 3.02 mill/uL (4.70-6.10)
[2024-01-17] MEDS ORDERED: Iopamidol 370 76% 100 ML VIAL ONE (09:19)
[2024-01-17 09:26] LABS: INR-International Normal Ratio 1.3; Prothrombin Time 16.1 sec (12.0-14.7)
[2024-01-17 09:27] LABS: PTT 31.5 sec (22.9-36.1)
[2024-01-17 09:30] LABS: ALT (SGPT) 22 U/L (8-55); AST (SGOT) 19 U/L (5-34); Albumin 3.1 g/dL (3.4-4.8); Alkaline Phosphatase 111 U/L (40-110); Anion Gap 17 mmol/L (10-20); BUN (Urea Nitrogen) 28 mg/dL (8.4-25.7); Bilirubin, Total 0.9 mg/dL (0.2-1.2); Calc. Creatinine Clearance 0 mL/min (70-130); Calcium 8.8 mg/dL (7.8-10.44); Carbon Dioxide 26 mmol/L (23-31); Chloride 102 mmol/L (98-107); Estimated GFR 65; Globulin 2.7 g/dL (2.4-3.5); Glucose 108 mg/dL (83-110); Potassium 4.2 mmol/L (3.5-5.1); Protein, Total 5.8 g/dL (5.8-8.1); Sodium 141 mmol/L (136-145)
[2024-01-17 09:48] LABS: Bacteria/HPF None Seen HPF (None Seen); Bilirubin Negative (Negative); Blood, Urine Negative (Negative); CAUTI Indications for Culture Dysuria,urgency,freq; Clarity Clear (Clear); Glucose, Urine (Dipstick) Normal (Negative); Ketone, Urine Negative (Negative); Leukocyte Negative Leu/uL (Negative); Nitrite Negative (Negative); Protein, Urine (Dipstick) 70 mg/dL (Neg-Trace); RBC/HPF 0-3 HPF (0-3); Specific Gravity, Urine 1.017 (1.002-1.036); Squamous Epithelial None Seen HPF (0-3); Urobilinogen Normal mg/dL (Less than 2); WBC/HPF 0-3 HPF (0-3); pH, Urine 6.5 (5.0-9.0)
[2024-01-17 09:49] LABS: Urine Culture Reflex No No
[2024-01-17 10:01] LABS: Influenza A by NAA Not Detected (NotDetected); Influenza B by NAA Not Detected (NotDetected); SARS-CoV-2 NAA Rapid Test Not Detected (NotDetected)
[2024-01-17 10:05] LABS: Anisocytosis SLIGHT = 6-15 cells HPF (0-5); Macrocytosis MODERATE=16-30 cells HPF (0-5); Platelet Adequacy Comment Platelets Decreased; Polychromasia SLIGHT = 2-3 cells HPF (0-2)
[2024-01-17] MEDS ORDERED: Azithromycin 500 MG VIAL ONE (11:33)
[2024-01-17] MEDS ORDERED: Sodium Chloride 0.9% 100 ML ONE (11:33)
[2024-01-17] MEDS ORDERED: cefTRIAXone (ROCEPHIN) 2 GM VIAL ONE (11:33)
[2024-01-17] MEDS ORDERED: Ondansetron PF 4 MG/2 ML Vial IVP PRN (13:07)
[2024-01-17 13:30] VITALS: BMI 37.0
[2024-01-17] MEDS: Ipratropium/Albuterol 3 ML NEB NEB SCH (14:48)
[2024-01-17] MEDS: Cefepime 2 GM in Sodium Chloride 0.9% 100 ML IVPB SCH (20:12)
[2024-01-17] MEDS: Atorvastatin Calcium 20 MG TAB PO SCH (20:12)
[2024-01-17] MEDS: Apixaban 5 MG TAB PO SCH (20:12)
[2024-01-17] MEDS: Senokot S 8.6-50 MG TAB PO SCH (20:12)
[2024-01-17] MEDS: Famotidine 20 MG TAB PO SCH (20:12)
[2024-01-18 05:37] LABS: Anion Gap 13 mmol/L (10-20); BUN (Urea Nitrogen) 24 mg/dL (8.4-25.7); Calc. Creatinine Clearance 76 mL/min (70-130); Calcium 8.8 mg/dL (7.8-10.44); Carbon Dioxide 26 mmol/L (23-31); Chloride 106 mmol/L (98-107); Estimated GFR 64; Glucose 98 mg/dL (83-110); Potassium 4.4 mmol/L (3.5-5.1); Sodium 141 mmol/L (136-145)
[2024-01-18 05:48] LABS: #Basophils Less than 0.03 10x3/uL (0.0-0.2); %Basophils 0.2 % (0.0-1.0); %Eosinophils 3.7 % (0.0-10.0); %Lymphocytes 10.9 % (21.0-51.0); %Monocytes 8.4 % (0.0-10.0); %Neutrophils 76.1 % (42.0-75.0); Hematocrit 33.7 % (42.0-52.0); Hemoglobin 10.6 g/dL (14.0-18.0); Mean Corpuscular HGB CONC 31.5 g/dL (32.0-36.0); Mean Corpuscular Hemoglobin 36.6 pg (27.0-31.0); Mean Corpuscular Volume 116.2 fL (78.0-98.0); Mean Platelet Volume 11.5 fL (7.4-10.4); Platelet Count 81 10x3/uL (130-400); RBC Distribution Width 15.6 % (11.5-14.5)
[2024-01-18] MEDS: Azithromycin 500 MG in Sodium Chloride 0.9% 250 ML 250 ML IVPB SCH (08:06)
[2024-01-18] MEDS: valACYclovir 500 MG TAB PO SCH (08:52)
[2024-01-18] MEDS: Allopurinol 300 MG TAB PO SCH (08:52)
[2024-01-18] MEDS: Finasteride 5 MG TAB PO SCH (08:52)
[2024-01-18] MEDS: Calcitriol 0.25 MCG CAP PO SCH (08:52)
[2024-01-18] MEDS ORDERED: Allopurinol 100 MG TAB PO SCH (09:00)
[2024-01-18] MEDS ORDERED: Calcitriol 0.25 MCG CAP PO SCH (09:00)
[2024-01-18] MEDS: Acetaminophen 325 MG TAB PO PRN (17:05)
[2024-01-18] MEDS: methylPREDNISolone Sod Succ 40 MG VIAL IVP SCH (17:06)
[2024-01-18] MEDS: Ipratropium/Albuterol 3 ML NEB NEB SCH (18:40)
[2024-01-18] MEDS ORDERED: Vancomycin 1 GM in Premix 1 BAG IVPB SCH (20:30)
[2024-01-18] MEDS: Vancomycin (BATCH) 2.5 GM in Premix 1 BAG IVPB SCH (21:44)
[2024-01-19 08:21] LABS: Vancomycin, Random 23.3 ug/mL (See Comment)
[2024-01-19 14:05] LABS: #Basophils Less than 0.03 10x3/uL (0.0-0.2); #Eosinphils Less than 0.03 10x3/uL (0.0-0.7); %Basophils 0.1 % (0.0-1.0); %Lymphocytes 4.8 % (21.0-51.0); %Monocytes 3.3 % (0.0-10.0); %Neutrophils 90.1 % (42.0-75.0); Hematocrit 33.4 % (42.0-52.0); Hemoglobin 10.8 g/dL (14.0-18.0); Mean Corpuscular HGB CONC 32.3 g/dL (32.0-36.0); Mean Corpuscular Volume 114.4 fL (78.0-98.0); Mean Platelet Volume 11.4 fL (7.4-10.4); Platelet Count 98 10x3/uL (130-400); RBC Distribution Width 15.4 % (11.5-14.5); Red Blood Cell (RBC) Count 2.92 mill/uL (4.70-6.10)
[2024-01-19 14:06] LABS: Anion Gap 13 mmol/L (10-20); BUN (Urea Nitrogen) 27 mg/dL (8.4-25.7); Calc. Creatinine Clearance 80 mL/min (70-130); Calcium 8.8 mg/dL (7.8-10.44); Carbon Dioxide 26 mmol/L (23-31); Chloride 107 mmol/L (98-107); Estimated GFR 68; Glucose 109 mg/dL (83-110); Potassium 4.3 mmol/L (3.5-5.1); Sodium 142 mmol/L (136-145)
[2024-01-19] MEDS: Metoprolol Tartrate 25 MG TAB PO SCH (21:26)
[2024-01-19] MEDS: Vancomycin (BATCH) 1.5 GM in Premix 1 BAG IVPB SCH (22:09)
[2024-01-20 06:07] LABS: #Basophils Less than 0.03 10x3/uL (0.0-0.2); #Eosinphils Less than 0.03 10x3/uL (0.0-0.7); %Basophils 0.1 % (0.0-1.0); %Monocytes 3.6 % (0.0-10.0); %Neutrophils 90.3 % (42.0-75.0); Hematocrit 30.3 % (42.0-52.0); Hemoglobin 9.7 g/dL (14.0-18.0); Mean Corpuscular Hemoglobin 36.5 pg (27.0-31.0); Mean Corpuscular Volume 113.9 fL (78.0-98.0); Mean Platelet Volume 12.1 fL (7.4-10.4); Platelet Count 98 10x3/uL (130-400); RBC Distribution Width 15.7 % (11.5-14.5); Red Blood Cell (RBC) Count 2.66 mill/uL (4.70-6.10)
[2024-01-20 06:18] LABS: Anion Gap 13 mmol/L (10-20); BUN (Urea Nitrogen) 32 mg/dL (8.4-25.7); Calc. Creatinine Clearance 72 mL/min (70-130); Calcium 8.5 mg/dL (7.8-10.44); Carbon Dioxide 23 mmol/L (23-31); Chloride 108 mmol/L (98-107); Estimated GFR 60; Glucose 154 mg/dL (83-110); Potassium 4.1 mmol/L (3.5-5.1); Sodium 140 mmol/L (136-145)
[2024-01-20] MEDS: Guaifenesin DM 100-10/5 ML UDCUP PO PRN (09:58)
[2024-01-20] MEDS: Metoprolol Tartrate 25 MG TAB PO SCH (09:58)
[2024-01-20] MEDS: traMADol HCl 50 MG TAB PO PRN (18:24)
[2024-01-20] MEDS: Azelastine 137 MCG/NASAL Spray 30 ML NS SCH (21:05)
[2024-01-21] MEDS: hydrALAZINE 20 MG/ML VIAL SLOW IVP SCH (04:46)
[2024-01-21 06:23] LABS: Hematocrit 32.7 % (42.0-52.0); Hemoglobin 10.6 g/dL (14.0-18.0); Mean Corpuscular HGB CONC 32.4 g/dL (32.0-36.0); Mean Corpuscular Hemoglobin 36.7 pg (27.0-31.0); Mean Corpuscular Volume 113.1 fL (78.0-98.0); Mean Platelet Volume 11.8 fL (7.4-10.4); Platelet Count 123 10x3/uL (130-400); RBC Distribution Width 15.7 % (11.5-14.5); Red Blood Cell (RBC) Count 2.89 mill/uL (4.70-6.10)
[2024-01-21 06:33] LABS: Vancomycin, Random 13.5 ug/mL (See Comment)
[2024-01-21 06:34] LABS: Anion Gap 11 mmol/L (10-20); BUN (Urea Nitrogen) 35 mg/dL (8.4-25.7); Calc. Creatinine Clearance 82 mL/min (70-130); Calcium 8.8 mg/dL (7.8-10.44); Carbon Dioxide 24 mmol/L (23-31); Chloride 109 mmol/L (98-107); Estimated GFR 70; Glucose 121 mg/dL (83-110); Potassium 4.2 mmol/L (3.5-5.1); Sodium 140 mmol/L (136-145)
[2024-01-21 06:50] LABS: Anisocytosis SLIGHT = 6-15 cells HPF (0-5); Band 3 % (5-11); Lymphocytes 4 % (21-51); Macrocytosis MODERATE=16-30 cells HPF (0-5); Metamyelocyte 1 % (0-0); Myelocyte 1 % (0-0); Neutrophil 89 % (42-75); Ovalocytes SLIGHT = 2-5 cells HPF (0-1); Platelet Adequacy Comment Platelets Normal; Polychromasia SLIGHT = 2-3 cells HPF (0-2); Promyelocytes 2 % (0-0); Tear Drops SLIGHT = 2-5 cells HPF (0-1)
[2024-01-21] MEDS: Colchicine 0.6 MG TAB PO SCH (21:08)
[2024-01-21] MEDS: DULoxetine 30 MG CAP PO SCH (21:09)
[2024-01-22 04:14] LABS: Anion Gap 10 mmol/L (10-20); BUN (Urea Nitrogen) 37 mg/dL (8.4-25.7); Calc. Creatinine Clearance 71 mL/min (70-130); Calcium 8.6 mg/dL (7.8-10.44); Carbon Dioxide 24 mmol/L (23-31); Chloride 109 mmol/L (98-107); Estimated GFR 59; Glucose 96 mg/dL (83-110); Potassium 3.8 mmol/L (3.5-5.1); Sodium 139 mmol/L (136-145)
[2024-01-22 04:17] LABS: Hemoglobin 10.2 g/dL (14.0-18.0); Mean Corpuscular HGB CONC 31.9 g/dL (32.0-36.0); Mean Corpuscular Hemoglobin 36.6 pg (27.0-31.0); Mean Corpuscular Volume 114.7 fL (78.0-98.0); Platelet Count 133 10x3/uL (130-400); RBC Distribution Width 15.7 % (11.5-14.5); Red Blood Cell (RBC) Count 2.79 mill/uL (4.70-6.10)
[2024-01-22 04:24] LABS: Band 8 % (5-11); Lymphocytes 8 % (21-51); Macrocytosis SLIGHT = 6-15 cells HPF (0-5); Metamyelocyte 2 % (0-0); Monocytes 10 % (0-10); Neutrophil 73 % (42-75); Nucleated RBC (Manual Ct) 1 % (0); Platelet Adequacy Comment Platelets Normal; Polychromasia SLIGHT = 2-3 cells HPF (0-2); Smudge Cells 5.2 %
[2024-01-22] MEDS: LevoFLOXacin 500 MG TAB PO SCH (05:13)
[2024-01-22] MEDS: Furosemide 40 MG TAB PO SCH (08:10)
[2024-01-22] MEDS: predniSONE 20 MG TAB PO SCH (08:11)
[2024-01-22 23:59] VITALS: BP 147/72; TEMP 99.1
== END 2024-01-22 22:57 | DRG 871 ==
LOC: ERS 08:31 → MSONC 13:04
PROVIDERS: ADMIT Internal Medicine; ATTEND Student in an Organized Health Care Education/Training Program
PROC: 3E03329 Introduction of Other Anti-infective into Peripheral Vein, Percutaneous Approach (ICD-10-PCS; principal; 2024-01-17)
PROC: 5A09357 Assistance with Respiratory Ventilation, Less than 24 Consecutive Hours, Continuous Positive Airway Pressure (ICD-10-PCS; 2024-01-17)
DX: A41.9 Sepsis, unspecified organism (principal); J18.9 Pneumonia, unspecified organism; J96.01 Acute respiratory failure with hypoxia; C90.00 Multiple myeloma not having achieved remission; D84.9 Immunodeficiency, unspecified; I50.22 Chronic systolic (congestive) heart failure; I11.0 Hypertensive heart disease with heart failure; E78.5 Hyperlipidemia, unspecified; N40.0 Benign prostatic hyperplasia without lower urinary tract symptoms; I25.10 Atherosclerotic heart disease of native coronary artery without angina pectoris; G62.9 Polyneuropathy, unspecified; Z95.1 Presence of aortocoronary bypass graft; Z87.891 Personal history of nicotine dependence
CPT/HCPCS: 36415; 70450; 71045; 71275; 72125; 80048; 80053; 80202; 81001; 82248; 83605; 83615; 83880; 84100; 84550; 85025; 85610; 85730; 87040; 87070; 87077; 87081; 87086; 87149; 87205; 87633; 93005; 94640; 94760; 96374; J0360; J0456; J0692; J0696; J1642; J2919; J3370; J7050; J7512; J7620; Q9967

== ENCOUNTER 2024-12-14 10:15 | Outpatient (CLI) | payer MEDICARE, OTHER | END 2024-12-14 10:16 | disposition home or self-care (01) | LOC: PET 10:15 | PROVIDERS: ATTEND Internal Medicine Hematology & Oncology | DX: N18.31 Chronic kidney disease, stage 3a (principal); C90.01 Multiple myeloma in remission | CPT/HCPCS: 78816; A9552; 80053; 83615; 83883; 84100; 84155; 84165; 84550; 85025; 86334 ==